=== PATIENT | male | born 1950 | race Caucasian/White ===

== ENCOUNTER → 2016-09-07 | Outpatient (CLI) | payer MEDICARE, OTHER | LOC: RAD 12:20 | PROVIDERS: ATTEND Internal Medicine Medical Oncology | DX: C34.92 Malignant neoplasm of unspecified part of left bronchus or lung (principal) | CPT/HCPCS: 78815; A9552 ==

== ENCOUNTER → 2016-11-01 | Outpatient (CLI) | payer MEDICARE | LOC: OD 09:32 | PROVIDERS: ATTEND Internal Medicine Medical Oncology | DX: C34.92 Malignant neoplasm of unspecified part of left bronchus or lung (principal) | CPT/HCPCS: 71020 ==

== ENCOUNTER → 2016-11-13 | Outpatient (CLI) | payer MEDICARE, OTHER | LOC: OD 15:08 | PROVIDERS: ATTEND Internal Medicine | DX: N40.0 Benign prostatic hyperplasia without lower urinary tract symptoms (principal) | CPT/HCPCS: 36415; 84153 ==

== ENCOUNTER → 2017-01-21 | Outpatient (CLI) | payer MEDICARE, OTHER ==
--- NOTE | 2017-01-21 10:55 | RADIOLOGY REPORT (SQ) ---
EXAM DESCRIPTION: CT CHEST WITH COMPLETED DATE/TIME: 01/21/2017 10:00 am REASON FOR STUDY: LUNG CA (C34.92) C34.92 MALIGNANT NEOPLASM OF UNSP PART OF LEFT BRONCHUS OR L COMPARISON: 01/26/2016 TECHNIQUE: CT scan of the chest performed using helical scanning technique with dynamic intravenous contrast injection. Images reviewed with lung, soft tissue and bone windows. Reconstructed coronal and sagittal MPR images reviewed. All images stored on PACS. All CT scanners at this facility use dose modulation, iterative reconstruction, and/or weight based d osing when appropriate to reduce radiation dose to as low as reasonably achievable (ALARA). [facility]: Dose Right [facility]: CareDose [facility]: Dose Right [facility]: Teradose 4D [facility]: Munch On Me CONTRAST TYPE AND DOSE: 80mL Isovue 370- low osmolar. RENAL FUNCTION: Creatinine 0.8 RADIATION DOSE: 5.10 mGy. LIMITATIONS: None. FINDINGS: LUNGS AND PLEURA: There is a 9 x 18 mm somewhat spiculated density in the left upper lobe. This is relatively stable or perhaps slightly less prominent than on the earlier study. Centrilobu lar emphysematous changes are present. There is pleural/ parenchymal scarring along the fissure on t he left side. This is best seen on image 97 where there is somewhat of a nodular appearance. This r epresents a slight change. HILAR AND MEDIASTINAL STRUCTURES: No identified masses or abnormal nodes. HEART AND VASCULAR STRUCTURES: No aneurysm or dissection. No central pulmonary emboli. No pericardi al effusion. HARDWARE: None in the chest. UPPER ABDOMEN: No significant findings. Limited exam. THYROID AND OTHER SOFT TISSUES: No masses. No adenopathy. BONES: No significant finding. OTHER: No other significant finding. IMPRESSION: 1. There is a somewhat spiculated density in the left upper lobe that is stable or perh aps slightly less prominent. 2. There is pleural/parenchymal scarring in the left lower lung field along the fissure that appears slightly more prominent. 3. There is centrilobular emphysema. TECHNICAL DOCUMENTATION: JOB ID: [id number] Quality ID # [id number]: Final reports with documentation of one or more dose reduction techniques (e.g., Au tomated exposure control, adjustment of the mA and/or kV according to patient size, use of iterative reconstruction technique) 2010 [employer]- All Rights Reserved
== END ==
LOC: RAD 09:19
PROVIDERS: ATTEND Internal Medicine Medical Oncology
DX: C34.92 Malignant neoplasm of unspecified part of left bronchus or lung (principal)
CPT/HCPCS: 71260; 82565

== ENCOUNTER → 2017-05-05 | Outpatient (CLI) | payer MEDICARE, OTHER ==
--- NOTE | 2017-05-06 08:16 | RADIOLOGY REPORT (SQ) ---
EXAM DESCRIPTION: PET CT SKULL/THIGH COMPLETED DATE/TIME: 05/05/2017 9:24 pm REASON FOR STUDY: LUNG CANCER C34.92 MALIGNANT NEOPLASM OF UNSP PART OF LEFT BRONCHUS OR L COMPARISON: 09/07/2016 and 04/29/2016. RADIONUCLIDE AND DOSE: 12.0 mCi F18 FDG The route of agent administration: Intravenous FASTING BLOOD SUGAR: 81 mg/dl CONTRAST TYPE AND DOSE: No CT contrast given. TECHNIQUE: Blood glucose level was verified. Above dose of FDG was injected intravenously. 2-D seg mented attenuation correction images were obtained from the base of the skull to the midthighs. Nonc ontrast CT images were obtained for attenuation correction and fusion with emission images. CT image s were performed without oral or intravenous contrast and are not sensitive for parenchymal lesions. A series of overlapping emission PET images were obtained. Images reviewed and manipulated at [facility] work station by the radiologist. Images stored on PACS. LIMITATIONS: None. FINDINGS: HEAD AND NECK: No areas of abnormal metabolic activity in the soft tissues of the head and neck. CHEST: Spiculated mass in the left apex currently measures 8 mm. Prior measurement 8 x 13 mm. Non m etabolic on PET imaging. Emphysematous changes. No other pulmonary lesions. ABDOMEN AND PELVIS: No areas of abnormal metabolic activity in the abdomen or pelvis. Expected physi ologic activity is present in the genitourinary system and bowel. PROXIMAL LOWER EXTREMITIES: No areas of abnormal metabolic activity in the soft tissues of the lower extremities. BONES: No abnormal metabolic activity in the visualized skeleton. ADDITIONAL CT FINDINGS: Mucous membrane thickening in the left maxillary sinus. No additional signif icant findings on the noncontrast CT images. OTHER: No other significant findings. IMPRESSION: SPICULATED MASS IN THE LEFT LUNG APEX IS SMALLER AND REMAINS NON METABOLIC. NO NEW PULM ONARY LESIONS. NO EVIDENCE OF METASTATIC DISEASE. TECHNICAL DOCUMENTATION: JOB ID: [id number]- All Rights Reserved
== END ==
LOC: RAD 17:17
PROVIDERS: ATTEND Internal Medicine Medical Oncology
DX: C34.92 Malignant neoplasm of unspecified part of left bronchus or lung (principal)
CPT/HCPCS: 78815; A9552

== ENCOUNTER → 2017-07-10 | Outpatient (CLI) | payer MEDICARE, OTHER, MEDICAID ==
[2017-07-10 08:19] LABS: ABSOLUTE BASOPHILS # (AUTO) 0.1 10^3/uL (0.0-0.2); ABSOLUTE EOSINOPHILS # (AUTO) 0.1 10^3/uL (0.0-0.6); ABSOLUTE LYMPHOCYTES (AUTO) 1.6 10^3/uL (0.5-4.7); ABSOLUTE MONOCYTES (AUTO) 0.4 10^3/uL (0.1-1.4); ABSOLUTE NEUT (AUTO) 2.6 10^3/uL (1.7-8.2); BASOPHILS % (AUTO) 1.1 % (0-2); EOSINOPHILS % (AUTO) 2.6 % (0-6); HEMATOCRIT 42.9 % (37.9-51.0); HEMOGLOBIN 14.8 g/dL (13.5-17.0); HGB HCT DIFFERENCE 1.5; LYMPHOCYTES % (AUTO) 33.8 % (13-45); MEAN CORPUSCULAR HEMOGLOBIN 32.8 pg (27.0-33.4); MEAN CORPUSCULAR HGB CONC 34.4 g/dL (32.0-36.0); MEAN CORPUSCULAR VOLUME 95 fl (80-97); MONOCYTES % (AUTO) 7.5 % (3-13); RED CELL DISTRIBUTION WIDTH 15.3 % (11.5-14.0); WHITE BLOOD COUNT 4.8 10^3/uL (4.0-10.5)
[2017-07-10 08:40] LABS: ALANINE AMINOTRANSFERASE 31 U/L (21-72); ALBUMIN 4.1 g/dL (3.5-5.0); ALKALINE PHOSPHATASE 95 U/L (38-126); ANION GAP 12 (5-19); ASPARTATE AMINO TRANSFERASE 19 U/L (17-59); BILIRUBIN,DIRECT 0.4 mg/dL (0.0-0.4); BILIRUBIN,TOTAL 0.6 mg/dL (0.2-1.3); BLOOD UREA NITROGEN 11 mg/dL (7-20); CALCIUM 9.6 mg/dL (8.4-10.2); CARBON DIOXIDE 30 mmol/L (22-30); CHLORIDE 103 mmol/L (98-107); CHOLESTEROL 168.66 mg/dL (0-200); CREATININE RESULT 0.83 mg/dL (0.52-1.25); Direct HDL 45 mg/dL (>40); GLUCOSE 92 mg/dL (75-110); POTASSIUM 4.8 mmol/L (3.6-5.0); SODIUM 144.5 mmol/L (137-145); TOTAL PROTEIN 6.5 g/dL (6.3-8.2); TRIGLYCERIDES 119 mg/dL (<150)
[2017-07-10 08:51] LABS: DIRECT LDL 94 mg/dL (<100)
[2017-07-10 09:10] LABS: THYROID STIMULATING HORMONE 1.15 uIU/mL (0.47-4.68)
== END ==
LOC: OD 07:04
PROVIDERS: ATTEND Internal Medicine
DX: E03.9 Hypothyroidism, unspecified (principal); Z12.5 Encounter for screening for malignant neoplasm of prostate; R91.1 Solitary pulmonary nodule; N42.89 Other specified disorders of prostate; E78.00 Pure hypercholesterolemia, unspecified; Z79.899 Other long term (current) drug therapy
CPT/HCPCS: 36415; 84439; 84443; 85025; 80053; 80061; G0103

== ENCOUNTER → 2018-01-06 | Outpatient (CLI) | payer MEDICARE, MEDICAID ==
--- NOTE | 2018-01-06 09:40 | RADIOLOGY REPORT (SQ) ---
EXAM DESCRIPTION: CT CHEST WITH COMPLETED DATE/TIME: 01/06/2018 8:07 am REASON FOR STUDY: LUNG CA (C34.92) C34.92 MALIGNANT NEOPLASM OF UNSP PART OF LEFT BRONCHUS OR L COMPARISON: PET-CT 05/05/2017, 09/07/2016 CT chest 01/21/2017, 01/26/2016 TECHNIQUE: CT scan of the chest performed using helical scanning technique with dynamic intravenous contrast injection. Images reviewed with lung, soft tissue and bone windows. Reconstructed coronal and sagittal MPR images reviewed. All images stored on PACS. All CT scanners at this facility use dose modulation, iterative reconstruction, and/or weight based d osing when appropriate to reduce radiation dose to as low as reasonably achievable (ALARA). [facility]: Dose Right [facility]: CareDose [facility]: Dose Right [facility]: Teradose 4D [facility]: [employer] CONTRAST TYPE AND DOSE: contrast/concentration: Isovue 370.00 mg/ml; Total Contrast Delivered: 80.0 ml; Total Saline Delivered: 55.0 ml RENAL FUNCTION: Creatinine 0.9 RADIATION DOSE: CT Rad equipment meets quality standard of care and radiation dose reduction techniq ues were employed. CTDIvol: 5.9 mGy. DLP: 249 mGy-cm. . LIMITATIONS: None. FINDINGS: LUNGS AND PLEURA: 6 mm thick left apical scarring essentially unchanged from 05/05/2017. Advanced obstructive lung disease is present with enlarged centrilobular airspaces. No acute infiltrates. No pneumothorax. No pleural effusion. HILAR AND MEDIASTINAL STRUCTURES: No identified masses or abnormal nodes. HEART AND VASCULAR STRUCTURES: No aneurysm or dissection. No central pulmonary emboli. No pericardi al effusion. HARDWARE: None in the chest. UPPER ABDOMEN: No significant findings. Limited exam. THYROID AND OTHER SOFT TISSUES: Thyroid unremarkable. Benign sebaceous cysts in the scan over the do rsal mid thoracic region BONES: No significant finding. OTHER: No other significant finding. IMPRESSION: 6 mm thick left apical scarring similar compared to 05/05/2017. Advanced obstructive lung disease No hilar or mediastinal adenopathy. No CT evidence of bony metastatic disease given history of lung cancer TECHNICAL DOCUMENTATION: JOB ID: [id number] Quality ID # [id number]: Final reports with documentation of one or more dose reduction techniques (e.g., Au tomated exposure control, adjustment of the mA and/or kV according to patient size, use of iterative reconstruction technique) 2010 [email or web address]- All Rights Reserved Reading location - IP/workstation name: [email or web address]
== END ==
LOC: RAD 07:28
PROVIDERS: ATTEND Internal Medicine Medical Oncology
DX: C34.92 Malignant neoplasm of unspecified part of left bronchus or lung (principal)
CPT/HCPCS: 71260

== ENCOUNTER → 2018-01-28 | Outpatient (CLI) | payer MEDICARE, MEDICAID ==
[2018-01-28 08:19] LABS: ALANINE AMINOTRANSFERASE 22 U/L (21-72); ALBUMIN 4.2 g/dL (3.5-5.0); ALKALINE PHOSPHATASE 89 U/L (38-126); ANION GAP 12 (5-19); ASPARTATE AMINO TRANSFERASE 19 U/L (17-59); BILIRUBIN,DIRECT 0.3 mg/dL (0.0-0.4); BILIRUBIN,TOTAL 0.8 mg/dL (0.2-1.3); BLOOD UREA NITROGEN 13 mg/dL (7-20); CALCIUM 10.1 mg/dL (8.4-10.2); CARBON DIOXIDE 27 mmol/L (22-30); CHLORIDE 104 mmol/L (98-107); CHOLESTEROL 167.96 mg/dL (0-200); GLUCOSE 88 mg/dL (75-110); SODIUM 143.4 mmol/L (137-145); TOTAL PROTEIN 6.8 g/dL (6.3-8.2); TRIGLYCERIDES 113 mg/dL (<150)
[2018-01-28 08:33] LABS: DIRECT LDL 101 mg/dL (<100)
[2018-01-28 08:46] LABS: FREE T4 (FREE THYROXINE) 1.57 ng/dL (0.78-2.19)
[2018-01-28 08:59] LABS: THYROID STIMULATING HORMONE 0.58 uIU/mL (0.47-4.68)
== END ==
LOC: OD 07:18
PROVIDERS: ATTEND Internal Medicine
DX: E03.9 Hypothyroidism, unspecified (principal); Z79.899 Other long term (current) drug therapy
CPT/HCPCS: 36415; 80053; 80061; 84439; 84443

== ENCOUNTER 2018-05-16 18:30 | Emergency (ER) | payer MEDICARE, MEDICAID ==
--- NOTE | 2018-05-16 19:14 | ER Document Report ---
ED General - General Chief Complaint: Abdominal Pain Stated Complaint: left upper abdominal pain Time Seen by Provider: 05/16/18 19:13 Notes: Patient is a 68-year-old male with history of lung cancer and COPD that presents to the emergency department for chief complaint of upper quadrant abdominal pain and confusion. Patient states that he has been having left upper quadrant abdominal pain, he has had decreased appetite as well, and a 12 pound weight loss, the patient does have lung cancer, that he that was in remission, his last CT scan was 5 months ago, and appeared stable according to the patient's . He is also been slightly more confused according to the patient's and more forgetful than his usual, which she does have a baseline of being confused. He is supposed to follow-up with his doctor of naprapathy in about 2 weeks. He has been having all of these symptoms for about 2 or 3 weeks, and overall is is not been feeling as strong as usual. He denies noting any fevers, chills, night sweats, chest pain, increased shortness of breath, nausea or vomiting. He has not had a cough without production over this time as well. Past Medical History: COPD, lung cancer diagnosed in 2016, treated with chemo and radiation Past Surgical History: Denies major surgical history Social History: Admits to still smoking cigarettes, denies alcohol or drug use. Family History: Reviewed and noncontributory for presenting illness Allergies: Reviewed, see documented allergy list. REVIEW OF SYSTEMS: Unless otherwise stated in this report the patient's positive and negative responses for review of systems for constitutional, eyes, ENT, cardiovascular, respiratory, gastrointestinal, neurological, genitourinary, musculoskeletal, and integumentary systems and related systems to the presenting problem are either as stated in the HPI or were not pertinent or were negative for the symptoms and/or complaints related to the presenting medical problem. PHYSICAL EXAMINATION: Vital signs reviewed, nursing noted reviewed. GENERAL: Malnourished appearing elderly male, no acute distress HEAD: Atraumatic, normocephalic. EYES: Eyes appear normal, extraocular movements intact, sclera anicteric, conjunctiva are normal. ENT: nares patent, oropharynx clear without exudates. Moist mucous membranes. NECK: Normal range of motion, supple without lymphadenopathy LUNGS: Wheezing and rhonchi throughout all lung warren but no respiratory distress HEART: Heart rate borderline tachycardic, regular rhythm. ABDOMEN: Left upper quadrant tenderness to palpation, soft, normoactive bowel sounds. No rebound, guarding, or rigidity. No masses appreciated. EXTREMITIES: Nontender, good range of motion, no pitting or edema. NEUROLOGICAL: No focal neurological deficits. Moves all extremities spontaneously Motor and sensory grossly intact on exam. Patient was alert and oriented on my exam PSYCH: Normal mood, normal affect. SKIN: Warm, Dry, normal turgor, no rashes or lesions noted on exposed skin TRAVEL OUTSIDE OF THE [place] IN LAST 30 DAYS: No - Related Data Allergies/Adverse Reactions: atorvastatin [From Lipitor] Allergy (Verified 03/30/16 18:35) gabapentin Allergy (Verified 03/30/16 18:35) pravastatin [From Pravachol] Allergy (Verified 03/30/16 18:35) pregabalin [From Lyrica] Allergy (Verified 03/30/16 18:35) Past Medical History - Social History Smoking Status: Current Every Day Smoker Family History: Reviewed & Not Pertinent - Past Medical History Cardiac Medical History: Denies: Hx Coronary Artery Disease, Hx Heart Attack, Hx Hypertension Pulmonary Medical History: Reports: Hx COPD Denies: Hx Asthma, Hx Bronchitis, Hx Pneumonia Neurological Medical History: Denies: Hx Cerebrovascular Accident, Hx Seizures Musculoskeletal Medical History: Denies Hx Arthritis - Immunizations Hx Diphtheria, Pertussis, Tetanus Vaccination: No Physical Exam - Vital signs Vitals: Temp Pulse Resp BP Pulse Ox 98.3 F 107 H 28 H 113/65 100 05/16/18 18:48 05/16/18 18:48 05/16/18 18:48 05/16/18 18:48 05/16/18 18:48 Course - Re-evaluation Re-evalutation: Patient seen and examined vital signs reviewed. Laboratory data and imaging were ordered as appropriate for the patient's presenting symptoms and complaint, with consideration of any critical or life threatening conditions that may be associated with their obtained history and exam as noted above. Patient was worked up extensively for his complaints, I did pursue a CT angiogram of the chest given the patient's history of cancer, he does have this left upper abdominal pain, and cough, I was also concerned that the patient's prior lung carcinoma may have returned. Patient was treated with DuoNeb breathing treatment Results were reviewed when available and demonstrated spiculated lung mass with surrounding inflammation, on the left, seem to be worse from prior imaging in December, blood work for the patient's confusion was unremarkable, negative ammonia, normal lactic acid, VBG was unremarkable, no evidence of CO2 retention, UA was also unremarkable. The patient was re-evaluated and was improved, and wishing to be discharged, I will treat the patient for pneumonia, as the patient does have possible infectious process on CT of the chest, will place the patient on doxycycline 100 mg twice daily, and advised him to follow-up with his doctor of naprapathy which she is agreeable Evaluation was most consistent with community-acquired pneumonia, worsening lung mass, transient encephalopathy, patient was alert and oriented at the time of discharge, described and discussed with the patient and the patient's that his nutritional status needs to be improved, by increasing protein supplementations, and is likely contributing to the patient's overall weakness, and mentation on a daily basis, encouraged to follow-up with her primary care physician to further discuss. Results were discussed with the patient at this point, after careful consideration I feel that that patient can be discharged from the emergency department, the patient was educated treatments and reasons to return to the emergency department based on their presumed diagnosis as noted above, they were advised to followup with a primary care physician in 2-3 days. Patient was agreeable to plan of care. *Note is created using voice recognition software and may contain spelling, syntax or grammatical errors. Laboratory 05/16/18 05/16/18 05/16/18 19:09 19:09 19:09 WBC 9.8 RBC 4.37 Hgb 13.8 Hct 40.6 MCV 93 MCH 31.6 MCHC 34.1 RDW 13.8 Plt Count 267 Seg Neutrophils % 81.9 H Lymphocytes % 9.4 L Monocytes % 8.2 Eosinophils % 0.1 Basophils % 0.4 Absolute Neutrophils 8.1 Absolute Lymphocytes 0.9 Absolute Monocytes 0.8 Absolute Eosinophils 0.0 Absolute Basophils 0.0 VBG pH VBG pCO2 VBG HCO3 VBG Base Excess Sodium 132.9 L Potassium 3.8 Chloride 96 L Carbon Dioxide 26 Anion Gap 11 BUN 15 Creatinine 0.82 Est GFR ( Amer) > 60 Est GFR (Non-Af Amer) > 60 Glucose 118 H Lactic Acid Calcium 9.1 Total Bilirubin 1.9 H Direct Bilirubin 1.0 H Neonat Total Bilirubin Not Reportable Neonat Direct Bilirubin Not Reportable Neonat Indirect Bili Not Reportable AST 26 ALT 29 Alkaline Phosphatase 130 H Ammonia Troponin I < 0.012 NT-Pro-B Natriuret Pep 234 Total Protein 6.4 Albumin 3.4 L Urine Color Urine Appearance Urine pH Ur Specific [place] Urine Protein Urine Glucose (UA) Urine Ketones Urine Blood Urine Nitrite Urine Bilirubin Urine Urobilinogen Ur Leukocyte Esterase Urine WBC (Auto) Urine RBC (Auto) Urine Bacteria (Auto) Squamous Epi Cells Auto Urine Mucus (Auto) Urine Ascorbic Acid 05/16/18 05/16/18 05/16/18 19:09 19:09 19:09 WBC RBC Hgb Hct MCV MCH MCHC RDW Plt Count Seg Neutrophils % Lymphocytes % Monocytes % Eosinophils % Basophils % Absolute Neutrophils Absolute Lymphocytes Absolute Monocytes Absolute Eosinophils Absolute Basophils VBG pH 7.43 H VBG pCO2 40.0 VBG HCO3 25.7 VBG Base Excess 1.3 Sodium Potassium Chloride Carbon Dioxide Anion Gap BUN Creatinine Est GFR ( Amer) Est GFR (Non-Af Amer) Glucose Lactic Acid 1.3 Calcium Total Bilirubin Direct Bilirubin Neonat Total Bilirubin Neonat Direct Bilirubin Neonat Indirect Bili AST ALT Alkaline Phosphatase Ammonia < 8.7 L Troponin I NT-Pro-B Natriuret Pep Total Protein Albumin Urine Color Urine Appearance Urine pH Ur Specific [place] Urine Protein Urine Glucose (UA) Urine Ketones Urine Blood Urine Nitrite Urine Bilirubin Urine Urobilinogen Ur Leukocyte Esterase Urine WBC (Auto) Urine RBC (Auto) Urine Bacteria (Auto) Squamous Epi Cells Auto Urine Mucus (Auto) Urine Ascorbic Acid 05/16/18 20:28 WBC RBC Hgb Hct MCV MCH MCHC RDW Plt Count Seg Neutrophils % Lymphocytes % Monocytes % Eosinophils % Basophils % Absolute Neutrophils Absolute Lymphocytes Absolute Monocytes Absolute Eosinophils Absolute Basophils VBG pH VBG pCO2 VBG HCO3 VBG Base Excess Sodium Potassium Chloride Carbon Dioxide Anion Gap BUN Creatinine Est GFR ( Amer) Est GFR (Non-Af Amer) Glucose Lactic Acid Calcium Total Bilirubin Direct Bilirubin Neonat Total Bilirubin Neonat Direct Bilirubin Neonat Indirect Bili AST ALT Alkaline Phosphatase Ammonia Troponin I NT-Pro-B Natriuret Pep Total Protein Albumin Urine Color YELLOW Urine Appearance SLIGHTLY-CLOUDY Urine pH 5.0 Ur Specific [place] 1.029 Urine Protein 30 H Urine Glucose (UA) NEGATIVE Urine Ketones NEGATIVE Urine Blood SMALL H Urine Nitrite NEGATIVE Urine Bilirubin SMALL H Urine Urobilinogen 4.0 H Ur Leukocyte Esterase NEGATIVE Urine WBC (Auto) 4 Urine RBC (Auto) 2 Urine Bacteria (Auto) TRACE Squamous Epi Cells Auto <1 Urine Mucus (Auto) MANY Urine Ascorbic Acid NEGATIVE Chest X-Ray 05/16/18 19:13 IMPRESSION: Left upper lobe architectural distortion and opacification which appears increased relative to CT imaging dated 01/06/2018. These findings are nonspecific, and may represent treatment changes; lymphangitic spread may have a similar appearance. Chest/Abdomen CTA 05/16/18 19:27 IMPRESSION: 1. Normal CTA of the chest. No pulmonary emboli. 2. Left upper lobe spiculated mass increased in size relative to 01/06/2018 CT imaging. Interval development of increased interstitial markings and architectural distortion extending to the lingula is concerning for lymphangitic spread. Superimposed infectious process is not excluded. Background of severe centrilobular emphysematous changes. - Vital Signs Vital signs: Temp Pulse Resp BP Pulse Ox 98.5 F 95 20 107/65 95 05/16/18 21:43 05/16/18 21:43 05/16/18 21:43 05/16/18 21:43 05/16/18 21:43 - Laboratory Result Diagrams: 05/16/18 19:09 05/16/18 19:09 Laboratory results interpreted by me: 05/16/18 05/16/18 05/16/18 19:09 19:09 19:09 Seg Neutrophils % 81.9 H Lymphocytes % 9.4 L VBG pH Sodium 132.9 L Chloride 96 L Glucose 118 H Total Bilirubin 1.9 H Direct Bilirubin 1.0 H Alkaline Phosphatase 130 H Ammonia < 8.7 L Albumin 3.4 L Urine Protein Urine Blood Urine Bilirubin Urine Urobilinogen 05/16/18 05/16/18 19:09 20:28 Seg Neutrophils % Lymphocytes % VBG pH 7.43 H Sodium Chloride Glucose Total Bilirubin Direct Bilirubin Alkaline Phosphatase Ammonia Albumin Urine Protein 30 H Urine Blood SMALL H Urine Bilirubin SMALL H Urine Urobilinogen 4.0 H - EKG Interpretation by Me Additional EKG results interpreted by me: EKG demonstrates sinus tachycardia with a ventricular rate of 100 bpm, left axis deviation, normal intervals, there is slight T wave inversion in lead aVL, no ST changes, this is compared with prior EKG from 03/30/2016, where T wave inversion was present in aVL at that time. Discharge - Discharge Clinical Impression: Hyponatremia Pneumonia Qualifiers: Pneumonia type: due to unspecified organism Laterality: left Lung location: upper lobe of lung Qualified Code(s): J18.1 - Lobar pneumonia, unspecified organism Altered mental status, unspecified Qualifiers: Altered mental status type: unspecified Qualified Code(s): R41.82 - Altered mental status, unspecified Condition: Stable Disposition: HOME, SELF-CARE Instructions: Pneumonia (OM) Additional Instructions: Please follow-up with your primary care physician as well as the doctor of naprapathy, to follow-up on your CAT scan findings, take the antibiotics as directed. Prescriptions: Doxycycline Hyclate 100 mg PO BID #20 capsule Referrals: PAN KOLB PA-C [ALLIED HEALTH PROFESSIONAL] - Follow up as needed
[2018-05-16 19:25] LABS: ABSOLUTE LYMPHOCYTES (AUTO) 0.9 10^3/uL (0.5-4.7); ABSOLUTE MONOCYTES (AUTO) 0.8 10^3/uL (0.1-1.4); ABSOLUTE NEUT (AUTO) 8.1 10^3/uL (1.7-8.2); BASOPHILS % (AUTO) 0.4 % (0-2); EOSINOPHILS % (AUTO) 0.1 % (0-6); HEMATOCRIT 40.6 % (37.9-51.0); HEMOGLOBIN 13.8 g/dL (13.5-17.0); LYMPHOCYTES % (AUTO) 9.4 % (13-45); MEAN CORPUSCULAR HEMOGLOBIN 31.6 pg (27.0-33.4); MEAN CORPUSCULAR HGB CONC 34.1 g/dL (32.0-36.0); MEAN CORPUSCULAR VOLUME 93 fl (80-97); MONOCYTES % (AUTO) 8.2 % (3-13); PLATELET COUNT 267 10^3/uL (150-450); RED BLOOD COUNT 4.37 10^6/uL (4.35-5.55); RED CELL DISTRIBUTION WIDTH 13.8 % (11.5-14.0); SEGMENTED NEUTROPHILS % (AUTO) 81.9 % (42-78); TOTAL CELLS COUNTED % (AUTO) 100 %; WHITE BLOOD COUNT 9.8 10^3/uL (4.0-10.5)
[2018-05-16 19:27] LABS: VENOUS BLOOD BASE EXCESS 1.3 mmol/L; VENOUS BLOOD HCO3 25.7 mmol/L (20-32); VENOUS BLOOD PH 7.43 (7.30-7.42)
[2018-05-16] MEDS ORDERED: IPRATROPIUM/ALBUTEROL 0.5-2.5 MG/3 ML AMPUL NEB ONE (19:29)
[2018-05-16 19:43] LABS: ALANINE AMINOTRANSFERASE 29 U/L (21-72); ALBUMIN 3.4 g/dL (3.5-5.0); ALKALINE PHOSPHATASE 130 U/L (38-126); ANION GAP 11 (5-19); ASPARTATE AMINO TRANSFERASE 26 U/L (17-59); BILIRUBIN,TOTAL 1.9 mg/dL (0.2-1.3); BLOOD UREA NITROGEN 15 mg/dL (7-20); CALCIUM 9.1 mg/dL (8.4-10.2); CARBON DIOXIDE 26 mmol/L (22-30); CHLORIDE 96 mmol/L (98-107); GLUCOSE 118 mg/dL (75-110); POTASSIUM 3.8 mmol/L (3.6-5.0); SODIUM 132.9 mmol/L (137-145); TOTAL PROTEIN 6.4 g/dL (6.3-8.2)
[2018-05-16 19:55] LABS: NT PRO BNP 234 pg/mL (5-900)
[2018-05-16 19:57] LABS: TROPONIN I < 0.012 ng/mL
--- NOTE | 2018-05-16 20:13 | RADIOLOGY REPORT (SQ) ---
EXAM DESCRIPTION: CHEST SINGLE VIEW COMPLETED DATE/TIME: 05/16/2018 7:58 pm REASON FOR STUDY: chest pain COMPARISON: 1. Chest CT 01/06/2018 2. Chest radiographs 11/01/2016 EXAM PARAMETERS: NUMBER OF VIEWS: One view. TECHNIQUE: Single frontal radiographic view of the chest acquired. RADIATION DOSE: NA LIMITATIONS: None. FINDINGS: LUNGS AND PLEURA: Left upper lobe architectural distortion and opacification in this patie nt with previously diagnosed [id number] lung cancer. This extends along the lateral pulmonary pa renchyma which may be related to treatment versus lymphangitic spread. The lungs are otherwise clear . No pneumothorax. No large pleural effusion. MEDIASTINUM AND HILAR STRUCTURES: No masses. Contour normal. HEART AND VASCULAR STRUCTURES: Heart normal in size. Normal vasculature. BONES: No acute findings. HARDWARE: None in the chest. OTHER: No other significant finding. IMPRESSION: Left upper lobe architectural distortion and opacification which appears increased relat laya to CT imaging dated 01/06/2018. These findings are nonspecific, and may represent treatment dos santos es; lymphangitic spread may have a similar appearance. TECHNICAL DOCUMENTATION: JOB ID: [id number] [employer]- All Rights Reserved Reading location - IP/workstation name: [email or web address]
[2018-05-16 20:47] LABS: APPEARANCE,URINE SLIGHTLY-CLOUDY; BILIRUBIN,URINE SMALL (NEGATIVE); GLUCOSE, URINE NEGATIVE (NEGATIVE); KETONES,URINE NEGATIVE (NEGATIVE); LEUKOCYTE ESTERASE,URINE NEGATIVE (NEGATIVE); NITRITE,URINE NEGATIVE (NEGATIVE); PROTEIN,URINE 30 mg/dL (NEGATIVE); URINE SPECIFIC GRAVITY 1.029
--- NOTE | 2018-05-16 20:54 | RADIOLOGY REPORT (SQ) ---
EXAM DESCRIPTION: CTA CHEST COMPLETED DATE/TIME: 05/16/2018 8:34 pm REASON FOR STUDY: left pleuritic chest pain, hx lung ca. COMPARISON: Chest radiograph 05/16/[address] 01/06/2018 TECHNIQUE: CT scan of the chest performed using helical scanning technique with dynamic intravenous contrast injection. Images reviewed with lung, soft tissue and bone windows. Reconstructed coronal and sagittal MPR images reviewed. Additional 3 dimensional post-processing performed to develop Maximal Intensity Projection images (MD P). All images stored on PACS. All CT scanners at this facility use dose modulation, iterative reconstruction, and/or weight based d osing when appropriate to reduce radiation dose to as low as reasonably achievable (ALARA). [facility]: Dose Right [facility]: CareDose [facility]: Dose Right [facility]: Teradose 4D [facility]: [employer] CONTRAST TYPE AND DOSE: contrast/concentration: Isovue 350.00 mg/ml; Total Contrast Delivered: 60.0 ml; Total Saline Delivered: 70.0 ml Contrast bolus optimized for the pulmonary arteries. Not diagnostic for the aorta. RENAL FUNCTION: BUN 15; creatinine 0.82 RADIATION DOSE: CT Rad equipment meets quality standard of care and radiation dose reduction techniq ues were employed. CTDIvol: 3.3 - 14.3 mGy. DLP: 578 mGy-cm. . LIMITATIONS: None. FINDINGS: LUNGS AND PLEURA: Re- demonstration of a spiculated mass involving the left upper lobe. A dditional finding of increased interstitial markings, architectural distortion extending to the lingu la. This is seen on a background of severe centrilobular emphysematous changes. No pleural effusion . No pneumothorax. AORTA AND GREAT VESSELS: No aneurysm. Contrast bolus not optimized for the aorta. HEART: Small pericardial effusion. Moderate to marked coronary artery calcifications. PULMONARY ARTERIES: No emboli visualized in the main pulmonary arteries or the segmental branches. HILAR AND MEDIASTINAL STRUCTURES: Scattered mediastinal lymph nodes which are not pathologic by size criteria. HARDWARE: None in the chest. UPPER ABDOMEN: No significant findings. Limited exam. THYROID AND OTHER SOFT TISSUES: No masses. No adenopathy. BONES: No acute or significant finding. 3D MIPS: Confirm above findings. OTHER: No other significant finding. IMPRESSION: 1. Normal CTA of the chest. No pulmonary emboli. 2. Left upper lobe spiculated mass increased in size relative to 01/06/2018 CT imaging. Interval dev elopment of increased interstitial markings and architectural distortion extending to the lingula is concerning for lymphangitic spread. Superimposed infectious process is not excluded. Background of severe centrilobular emphysematous changes. COMMENT: Quality ID # [id number]: Final reports with documentation of one or more dose reduction techniques (e.g., Automated exposure control, adjustment of the mA and/or kV according to patient size, use of iterative reconstruction technique) TECHNICAL DOCUMENTATION: JOB ID: [id number] [employer]- All Rights Reserved Reading location - IP/workstation name: [email or web address]
--- NOTE | 2018-05-16 20:56 | EKG REPORT ---
SEVERITY:- ABNORMAL ECG - SINUS TACHYCARDIA LEFT ANTERIOR FASCICULAR BLOCK : Confirmed by: Zuly Goncalves MD 16-May-2018 20:55:24
[2018-05-16 21:00] LABS: COLOR,URINE YELLOW
[2018-05-16 21:48] VITALS: BP 107/65
== END 2018-05-16 21:56 | disposition home or self-care (01) ==
LOC: ER 18:30
DX: E87.1 Hypo-osmolality and hyponatremia (principal); J18.1 Lobar pneumonia, unspecified organism; R41.82 Altered mental status, unspecified; R10.12 Left upper quadrant pain; J44.9 Chronic obstructive pulmonary disease, unspecified; F17.200 Nicotine dependence, unspecified, uncomplicated; Z85.118 Personal history of other malignant neoplasm of bronchus and lung
CPT/HCPCS: 93005; 94640; 99285; 36415; 87040; 82140; 85025; 87077; 80053; 81001; 84484; 82803; 83605; 83880; 71045; 71275; 93010; A9270; J7620

== ENCOUNTER 2018-05-19 13:48 | Inpatient (IN) | payer MEDICARE, MEDICAID ==
--- NOTE | 2018-05-19 14:39 | ER Document Report ---
ED Medical Screen (RME) - General Chief Complaint: Respiratory Distress Stated Complaint: GENERAL WEAKNESS Time Seen by Provider: 05/19/18 14:25 Mode of Arrival: Medic Information source: Patient Notes: This is a 68-year-old man with a history of COPD, lung cancer (diagnosed December of this year by biopsy, status post chemotherapy and radiation therapy) who was recently in the emergency room for increasing shortness of breath and started on an oral antibiotic (3 days ago) who was brought in by ambulance from the oncologist office for worsening shortness of breath, confusion decreased p.o. intake and not tolerating oral antibiotics. Patient's oxygen saturation was noted to be 90% on room air. He is on no supplemental oxygen at home. TRAVEL OUTSIDE OF THE [place] IN LAST 30 DAYS: No - Related Data Allergies/Adverse Reactions: atorvastatin [From Lipitor] Allergy (Verified 03/30/16 18:35) gabapentin Allergy (Verified 03/30/16 18:35) pravastatin [From Pravachol] Allergy (Verified 03/30/16 18:35) pregabalin [From Lyrica] Allergy (Verified 03/30/16 18:35) Past Medical History - Social History Frequency of alcohol use: None - Past Medical History Cardiac Medical History: Denies: Hx Coronary Artery Disease, Hx Heart Attack, Hx Hypertension Pulmonary Medical History: Reports: Hx COPD Denies: Hx Asthma, Hx Bronchitis, Hx Pneumonia Neurological Medical History: Denies: Hx Cerebrovascular Accident, Hx Seizures Renal/ Medical History: Denies: Hx Peritoneal Dialysis Musculoskeltal Medical History: Denies Hx Arthritis - Immunizations Hx Diphtheria, Pertussis, Tetanus Vaccination: No Physical Exam - Vital signs Vitals: Resp 20 05/19/18 13:55 Notes: Physical exam: GENERAL: Cachectic, ill-appearing man who does appear short of breath. He is tachycardic with a heart rate of 112. HEAD: Atraumatic, normocephalic. EYES: Pupils equal round and reactive to light, extraocular movements intact, sclera anicteric, conjunctiva are normal. ENT: TMs normal, nares patent, oropharynx clear without exudates. Moist mucous membranes. NECK: Normal range of motion, supple without obvious mass or JVD. LUNGS: Bilateral wheezing HEART: Regular rate and rhythm without murmurs, rubs or gallops. ABDOMEN: Soft, normoactive bowel sounds. No tenderness to palpation. No guarding, no rebound. No masses appreciated. EXTREMITIES: Normal range of motion, no pitting or edema. No clubbing or cyanosis. NEUROLOGICAL: Cranial nerves II through XII grossly intact. Normal speech, moving all extremities. PSYCH: Normal mood, normal affect. SKIN: Warm, Dry, normal turgor, no rashes or lesions noted. Course - Re-evaluation Re-evalutation: 05/19/18 16:13 Note: This is a 68-year-old man who presents with progressively worsening shortness of breath. Patient was seen in the emergency room 3 days ago and CTA at that time showed increasing spiculated mass with possible superimposed pneumonia. Thus he was started on oral antibiotics which is not been able to tolerate because of increasing weakness and decreased p.o. intake. He does have a leukocytosis (12,000) with 10% bands and a mildly elevated lactic acid. So he has Sirs with possible pneumonia in the setting of COPD exacerbation with failed outpatient management and he has underlying immune compromise due to his lung cancer. Treatment will be IV fluids, IV steroids, IV antibiotics, albuterol and ipratropium nebulizers. - Vital Signs Vital signs: Temp Pulse Resp BP Pulse Ox 98.6 F 113 H 24 H 103/67 94 05/19/18 14:19 05/19/18 14:19 05/19/18 16:01 05/19/18 16:01 05/19/18 16:01 - Laboratory Result Diagrams: 05/19/18 14:15 05/19/18 14:15 Laboratory results interpreted by me: 05/19/18 05/19/18 05/19/18 14:15 14:15 14:15 WBC 12.3 H RBC 4.29 L Band Neutrophils % 10 H Lymphocytes % (Manual) 7 L Abs Neuts (Manual) 10.8 H Sodium 135.6 L Chloride 96 L Lactic Acid 2.3 H Total Bilirubin 3.1 H Direct Bilirubin 2.4 H Alkaline Phosphatase 137 H Total Protein 6.0 L Albumin 3.0 L - EKG Interpretation by Mi EKG shows normal: Sinus rhythm Rate: Normal Rhythm: NSR - EKG shows sinus tachycardia with a ventricular rate of 112, no acute ST-T wave changes Doctor's Discharge - Discharge Clinical Impression: Sirs with pneumonia, COPD exacerbation Condition: Stable Disposition: ADMITTED INPATIENT
[2018-05-19 14:55] LABS: VENOUS BLOOD HCO3 25.5 mmol/L (20-32); VENOUS BLOOD PH 7.42 (7.30-7.42)
[2018-05-19 15:00] LABS: HEMATOCRIT 39.8 % (37.9-51.0); HEMOGLOBIN 13.7 g/dL (13.5-17.0); MEAN CORPUSCULAR HGB CONC 34.5 g/dL (32.0-36.0); MEAN CORPUSCULAR VOLUME 93 fl (80-97); PLATELET COUNT 346 10^3/uL (150-450); RED BLOOD COUNT 4.29 10^6/uL (4.35-5.55); RED CELL DISTRIBUTION WIDTH 13.9 % (11.5-14.0); WHITE BLOOD COUNT 12.3 10^3/uL (4.0-10.5)
[2018-05-19 15:03] LABS: ALANINE AMINOTRANSFERASE 32 U/L (21-72); ALKALINE PHOSPHATASE 137 U/L (38-126); ANION GAP 13 (5-19); ASPARTATE AMINO TRANSFERASE 22 U/L (17-59); BILIRUBIN,DIRECT 2.4 mg/dL (0.0-0.4); BILIRUBIN,TOTAL 3.1 mg/dL (0.2-1.3); BLOOD UREA NITROGEN 20 mg/dL (7-20); CALCIUM 9.4 mg/dL (8.4-10.2); CARBON DIOXIDE 27 mmol/L (22-30); CHLORIDE 96 mmol/L (98-107); GLUCOSE 108 mg/dL (75-110); POTASSIUM 4.4 mmol/L (3.6-5.0); SODIUM 135.6 mmol/L (137-145)
[2018-05-19 15:30] LABS: ABSOLUTE LYMPHOCYTES# (MANUAL) 0.9 10^3/uL (0.5-4.7); ABSOLUTE MONOCYTES # (MANUAL) 0.6 10^3/uL (0.1-1.4); ABSOLUTE NEUTROPHILS# (MANUAL) 10.8 10^3/uL (1.7-8.2); BAND NEUTROPHILS % (MANUAL) 10 % (3-5); BASOPHILS % (MANUAL) 0 % (0-2); EOSINOPHILS % (MANUAL) 0 % (0-6); HYPOCHROMASIA SLIGHT; LYMPHOCYTES % (MANUAL) 7 % (13-45); MONOCYTES % (MANUAL) 5 % (3-13); PLATELET COMMENT ADEQUATE; POLYCHROMASIA SLIGHT; SEGMENTED NEUTROPHILS % (MAN) 78 % (42-78); TOTAL CELLS COUNTED 100; TOXIC GRANULATION SLIGHT; TOXIC VACUOLATION PRESENT
[2018-05-19] MEDS ORDERED: CEFTRIAXONE 1 GM/D5W RTU 1 GM/50 ML RTUPB IV ONE (15:30)
[2018-05-19] MEDS ORDERED: IPRATROPIUM/ALBUTEROL 0.5-2.5 MG/3 ML AMPUL NEB ONE (15:30)
[2018-05-19] MEDS ORDERED: METHYLPREDNISOLONE INJ 125 MG/2 ML SDV IV ONE (15:30)
[2018-05-19] MEDS ORDERED: CEFTRIAXONE INJ 1000 MG VIAL ONE (15:47)
--- NOTE | 2018-05-19 15:49 | RADIOLOGY REPORT (SQ) ---
EXAM DESCRIPTION: CHEST SINGLE VIEW COMPLETED DATE/TIME: 05/19/2018 3:05 pm REASON FOR STUDY: chest pain COMPARISON: None. EXAM PARAMETERS: NUMBER OF VIEWS: One view. TECHNIQUE: Single frontal radiographic view of the chest acquired. RADIATION DOSE: NA LIMITATIONS: None. FINDINGS: LUNGS AND PLEURA: Hyperinflation lungs is consistent with COPD. There is a cavitary infil trate in the in the left upper lobe with left apical and lateral pleural thickening. Volume loss of the left lung is noted. MEDIASTINUM AND HILAR STRUCTURES: No masses. Contour normal. HEART AND VASCULAR STRUCTURES: The heart is normal with normal pulmonary vasculature. BONES: No acute findings. HARDWARE: None in the chest. OTHER: No other significant finding. IMPRESSION: 1. COPD. Cavitary infiltrate left upper lobe with left apical and lateral pleural thic kening. Otherwise, no significant change. TECHNICAL DOCUMENTATION: JOB ID: [id number] [employer]- All Rights Reserved Reading location - IP/workstation name: [email or web address]
--- NOTE | 2018-05-19 16:01 | EKG REPORT ---
SEVERITY:- ABNORMAL ECG - SINUS TACHYCARDIA LEFT ANTERIOR FASCICULAR BLOCK BORDERLINE T ABNORMALITIES, ANT-LAT LEADS : Confirmed by: Bryon Gandara 19-May-2018 16:00:14
--- NOTE | 2018-05-19 16:18 | ER Document Report ---
ED General - General Chief Complaint: Respiratory Distress Stated Complaint: GENERAL WEAKNESS Time Seen by Provider: 05/19/18 14:25 Mode of Arrival: Medic Information source: Patient Notes: This is a 68-year-old man with a history of COPD, lung cancer (diagnosed December of this year by biopsy, status post chemotherapy and radiation therapy) who was recently in the emergency room for increasing shortness of breath and started on an oral antibiotic (3 days ago) who was brought in by ambulance from the oncologist office for worsening shortness of breath, confusion decreased p.o. intake and not tolerating oral antibiotics. Patient's oxygen saturation was noted to be 90% on room air. He is on no supplemental oxygen at home. TRAVEL OUTSIDE OF THE [place] IN LAST 30 DAYS: No - HPI Onset: Last week Onset/Duration: Gradual Quality of pain: No pain Severity: None Pain Level: Denies Associated symptoms: Nausea, Shortness of breath. denies: Chest pain, Fever Exacerbated by: Movement Relieved by: Denies Similar symptoms previously: Yes Recently seen / treated by doctor: Yes - Related Data Allergies/Adverse Reactions: atorvastatin [From Lipitor] Allergy (Verified 03/30/16 18:35) gabapentin Allergy (Verified 03/30/16 18:35) pravastatin [From Pravachol] Allergy (Verified 03/30/16 18:35) pregabalin [From Lyrica] Allergy (Verified 03/30/16 18:35) Past Medical History - General Information source: Patient - Social History Smoking Status: Current Every Day Smoker Cigarette use (# per day): Yes - 1 pack/day Chew tobacco use (# tins/day): No Frequency of alcohol use: None Drug Abuse: None Lives with: Family Family History: Reviewed & Not Pertinent Patient has suicidal ideation: No Patient has homicidal ideation: No - Past Medical History Cardiac Medical History: Denies: Hx Coronary Artery Disease, Hx Heart Attack, Hx Hypertension Pulmonary Medical History: Reports: Hx COPD Denies: Hx Asthma, Hx Bronchitis, Hx Pneumonia Neurological Medical History: Denies: Hx Cerebrovascular Accident, Hx Seizures Renal/ Medical History: Denies: Hx Peritoneal Dialysis Musculoskeletal Medical History: Denies Hx Arthritis Surgical Hx: Negative - Immunizations Hx Diphtheria, Pertussis, Tetanus Vaccination: No Review of Systems - Review of Systems Constitutional: denies: Chills, Fever EENT: No symptoms reported Cardiovascular: denies: Chest pain, Palpitations, Heart racing Respiratory: Cough, Short of breath, Wheezing Gastrointestinal: Poor appetite, Poor fluid intake Genitourinary: No symptoms reported Male Genitourinary: No symptoms reported Musculoskeletal: No symptoms reported Skin: No symptoms reported Hematologic/Lymphatic: No symptoms reported Neurological/Psychological: Confusion, Weakness Physical Exam - Vital signs Vitals: Resp 20 05/19/18 13:55 Notes: Physical exam: GENERAL: Cachectic, ill-appearing man who does appear short of breath. He is tachycardic with a heart rate of 112. HEAD: Atraumatic, normocephalic. EYES: Pupils equal round and reactive to light, extraocular movements intact, sclera anicteric, conjunctiva are normal. ENT: TMs normal, nares patent, oropharynx clear without exudates. Moist mucous membranes. NECK: Normal range of motion, supple without obvious mass or JVD. LUNGS: Bilateral wheezing HEART: Regular rate and rhythm without murmurs, rubs or gallops. ABDOMEN: Soft, normoactive bowel sounds. No tenderness to palpation. No guarding, no rebound. No masses appreciated. EXTREMITIES: Normal range of motion, no pitting or edema. No clubbing or cyanosis. NEUROLOGICAL: Cranial nerves II through XII grossly intact. Normal speech, moving all extremities. PSYCH: Normal mood, normal affect. SKIN: Warm, Dry, normal turgor, no rashes or lesions noted. Course - Re-evaluation Re-evalutation: 05/19/18 16:18 Note: This is a 68-year-old man who presents with progressively worsening shortness of breath. Patient was seen in the emergency room 3 days ago and CTA at that time showed increasing spiculated mass with possible superimposed pneumonia. Thus he was started on oral antibiotics which is not been able to tolerate because of increasing weakness and decreased p.o. intake. He does have a leukocytosis (12,000) with 10% bands and a mildly elevated lactic acid. So he has Sirs with possible pneumonia in the setting of COPD exacerbation with failed outpatient management and he has underlying immune compromise due to his lung cancer. Treatment will be IV fluids, IV steroids, IV antibiotics, albuterol and ipratropium nebulizers. - Vital Signs Vital signs: Temp Pulse Resp BP Pulse Ox 98.4 F 70 16 99/59 L 95 05/19/18 19:29 05/19/18 21:38 05/19/18 21:38 05/19/18 19:29 05/19/18 21:38 - Laboratory Result Diagrams: 05/19/18 14:15 05/19/18 14:15 Laboratory results interpreted by me: 05/19/18 05/19/18 05/19/18 14:15 14:15 14:15 WBC 12.3 H RBC 4.29 L Band Neutrophils % 10 H Lymphocytes % (Manual) 7 L Abs Neuts (Manual) 10.8 H Sodium 135.6 L Chloride 96 L Lactic Acid 2.3 H Total Bilirubin 3.1 H Direct Bilirubin 2.4 H Alkaline Phosphatase 137 H Total Protein 6.0 L Albumin 3.0 L Critical Care Note - Critical Care Note Total time excluding time spent on procedures (mins): 60 Discharge - Discharge Clinical Impression: Sirs with pneumonia, COPD exacerbation Condition: Stable Disposition: ADMITTED INPATIENT Admitting Provider: Hospitalist - Dr Roldan Unit Admitted: Telemetry
--- NOTE | 2018-05-19 17:13 | PDOC H&P ---
History of Present Illness Patient complains of: Shortness of breath History of Present Illness: JOCELYN COSBY is a 68 year old male who has history of COPD, dementia, lung cancer who is an active smoker. Patient has dementia and did not provide much history. His mother was at bedside and she also did not provide any valid history. From what I can tell, he has been suffering from progressive shortness of breath, fever, cough for about few days. He has lung cancer and apparently went through chemotherapy. The status of his cancer is unknown. He has COPD and still actively smoking. Past Medical History Cardiac Medical History: Denies: Coronary Artery Disease, Myocardial Infarction, Hypertension Pulmonary Medical History: Reports: Chronic Obstructive Pulmonary Disease (COPD) Denies: Asthma, Bronchitis, Pneumonia Neurological Medical History: Denies: Seizures Malignancy Medical History: Reports: Lung Cancer Musculoskeltal Medical History: Denies: Arthritis Psychiatric Medical History: Reports: Tobacco Dependency Hematology: Denies: Anemia Social History Smoking Status: Current Every Day Smoker Frequency of Alcohol Use: Occasional Family History Family History: Other - Could not be obtained due to dementia Parental Family History Reviewed: Yes Children Family History Reviewed: Yes Sibling(s) Family History Reviewed.: Yes Medication/Allergy Allergies/Adverse Reactions: atorvastatin [From Lipitor] Allergy (Verified 03/30/16 18:35) gabapentin Allergy (Verified 03/30/16 18:35) pravastatin [From Pravachol] Allergy (Verified 03/30/16 18:35) pregabalin [From Lyrica] Allergy (Verified 03/30/16 18:35) Physical Exam Vital Signs: Temp Pulse Resp BP Pulse Ox 98.6 F 113 H 24 H 103/67 94 05/19/18 14:19 05/19/18 14:19 05/19/18 16:01 05/19/18 16:01 05/19/18 16:01 Intake & Output 05/18/18 05/19/18 05/20/18 06:59 06:59 06:59 Intake Total 0 Output Total 0 Balance 0 Weight 141 lb 1.533 oz General appearance: PRESENT: mild distress, thin Head exam: PRESENT: atraumatic, normocephalic Eye exam: PRESENT: conjunctiva pink. ABSENT: conjunctival injection, scleral icterus Ear exam: PRESENT: bleeding Mouth exam: PRESENT: moist, tongue midline Neck exam: ABSENT: carotid bruit, JVD, lymphadenopathy, thyromegaly Respiratory exam: PRESENT: prolonged expiratory phas, rhonchi, tachypnea, wheezes. ABSENT: rales Cardiovascular exam: PRESENT: RRR. ABSENT: diastolic murmur, rubs, systolic murmur Pulses: PRESENT: normal dorsalis pedis pul Vascular exam: PRESENT: normal capillary refill GI/Abdominal exam: PRESENT: normal bowel sounds, soft. ABSENT: distended, guarding, mass, organolmegaly, rebound, tenderness Rectal exam: PRESENT: deferred Extremities exam: PRESENT: full ROM. ABSENT: calf tenderness, clubbing, pedal edema Neurological exam: ABSENT: oriented to person, oriented to place, oriented to time, oriented to situation Psychiatric exam: PRESENT: other - Dementia. ABSENT: homicidal ideation, suicidal ideation Skin exam: PRESENT: dry, intact, warm. ABSENT: cyanosis, rash Results Laboratory Results: 05/19/18 14:15 05/19/18 14:15 05/19/18 05/19/18 05/19/18 14:15 14:15 14:15 WBC 12.3 H RBC 4.29 L Hgb 13.7 Hct 39.8 MCV 93 MCH 32.0 MCHC 34.5 RDW 13.9 Plt Count 346 Seg Neutrophils % Not Reportable Lymphocytes % Not Reportable Monocytes % Not Reportable Eosinophils % Not Reportable Basophils % Not Reportable Absolute Neutrophils Not Reportable Absolute Lymphocytes Not Reportable Absolute Monocytes Not Reportable Absolute Eosinophils Not Reportable Absolute Basophils Not Reportable VBG pH VBG pCO2 VBG HCO3 VBG Base Excess Sodium 135.6 L Potassium 4.4 Chloride 96 L Carbon Dioxide 27 Anion Gap 13 BUN 20 Creatinine 0.86 Est GFR ( Amer) > 60 Est GFR (Non-Af Amer) > 60 Glucose 108 Lactic Acid 2.3 H Calcium 9.4 Magnesium 1.6 Total Bilirubin 3.1 H AST 22 ALT 32 Alkaline Phosphatase 137 H Total Protein 6.0 L Albumin 3.0 L 05/19/18 14:15 WBC RBC Hgb Hct MCV MCH MCHC RDW Plt Count Seg Neutrophils % Lymphocytes % Monocytes % Eosinophils % Basophils % Absolute Neutrophils Absolute Lymphocytes Absolute Monocytes Absolute Eosinophils Absolute Basophils VBG pH 7.42 VBG pCO2 40.0 VBG HCO3 25.5 VBG Base Excess 1.0 Sodium Potassium Chloride Carbon Dioxide Anion Gap BUN Creatinine Est GFR ( Amer) Est GFR (Non-Af Amer) Glucose Lactic Acid Calcium Magnesium Total Bilirubin AST ALT Alkaline Phosphatase Total Protein Albumin Impressions: Chest X-Ray 05/19/18 14:35 IMPRESSION: 1. COPD. Cavitary infiltrate left upper lobe with left apical and lateral pleural thickening. Otherwise, no significant change. Assessment & Plan - Diagnosis (1) Lung cancer Is this a current diagnosis for this admission?: Yes Plan: Continue to follow-up with oncology after discharge (2) COPD exacerbation Is this a current diagnosis for this admission?: Yes Plan: Start p.o. prednisone, DuoNeb every 4 hours (3) Pneumonia Is this a current diagnosis for this admission?: Yes Plan: IV Zosyn, check sputum and blood culture (4) Dementia Is this a current diagnosis for this admission?: Yes
[2018-05-19] MEDS: PREDNISONE 20 MG TABLET PO SCH (17:55)
[2018-05-19] MEDS: PIPERACILLIN SODIUM/TAZOBACTAM 3.375 GM in NORMAL SALINE 100 ML IV SCH (17:55)
[2018-05-19] MEDS ORDERED: PIPERACILLIN/TAZOBACTAM 3.375 GM VIAL IV SCH (18:00)
[2018-05-19] MEDS: NICOTINE 14 MG/24 HR PATCH.TD24 TD SCH (20:33)
[2018-05-19] MEDS: IPRATROPIUM/ALBUTEROL 0.5-2.5 MG/3 ML AMPUL NEB SCH (21:38)
[2018-05-20] MEDS: IPRATROPIUM/ALBUTEROL 0.5-2.5 MG/3 ML AMPUL NEB SCH ×4 (00:30→11:48)
[2018-05-20] MEDS: PIPERACILLIN SODIUM/TAZOBACTAM 3.375 GM in NORMAL SALINE 100 ML IV SCH ×3 (00:33→12:11)
[2018-05-20] MEDS: PREDNISONE 20 MG TABLET PO SCH (09:48)
[2018-05-20] MEDS: NICOTINE 14 MG/24 HR PATCH.TD24 TD SCH (09:48)
[2018-05-20] MEDS ORDERED: ALBUTEROL SULFATE 0.083% NEB 2.5 MG/3 ML AMPUL NEB PRN (13:03)
[2018-05-20] MEDS: BUDESONIDE NEB 0.5 MG/2 ML AMPUL NEB SCH ×2 (13:24→21:16)
--- NOTE | 2018-05-20 13:24 | PDOC PROGRESS REPORT ---
Subjective Progress Note for:: 05/20/18 Subjective:: JOCELYN BURNS is a 68 year old male who has history of COPD, dementia and lung cancer who is an active smoker. Due to his dementia he can not provide reliable medical history. Presented to the emergency room with increased dyspnea and a worsening pneumonia compared to his symptoms and x-ray findings 3 days earlier when he was first evaluated in the ER and treated with oral doxycycline. 05/20/18: Mr. Burns's family states that he seems to be doing considerably better than he was at the time of his admission. His wheezing is significantly improved and he is moving air and being active in the room without O2 support. He continues to have dementia and cannot remember if he smokes cigarettes, which he does at the rate of approximately 2 packs/day per his daughter. His respiratory therapy will be changed to every 8 hour ipratropium and Xopenex with every hour albuterol as needed. His antibiotic will be changed to Levaquin 750 mg p.o. daily for at least 4 doses. He will be continued on his current steroid dosage of 40 mg of prednisone daily. Reason For Visit: PNEUMONIA,COPD Physical Exam Vital Signs: Temp Pulse Resp BP Pulse Ox 97.2 F 91 16 98/64 L 95 05/20/18 11:22 05/20/18 11:48 05/20/18 11:48 05/20/18 11:22 05/20/18 11:48 Intake & Output 05/19/18 05/20/18 05/21/18 06:59 06:59 06:59 Intake Total 300 Balance 300 Weight 58.9 kg General appearance: PRESENT: no acute distress, cooperative, thin Head exam: PRESENT: atraumatic, normocephalic Eye exam: PRESENT: conjunctiva pink, EOMI. ABSENT: conjunctival injection, nystagmus, periorbital swelling, scleral icterus Ear exam: PRESENT: normal external ear exam. ABSENT: bleeding, drainage Mouth exam: PRESENT: moist, tongue midline Neck exam: ABSENT: thyromegaly, tracheal deviation Respiratory exam: PRESENT: prolonged expiratory phas - Minimally prolonged, symmetrical, unlabored, wheezes - Minimal end expiratory wheezes. ABSENT: accessory muscle use, rales, retraction, rhonchi Cardiovascular exam: PRESENT: RRR. ABSENT: clicks, diastolic murmur, gallop, rubs, systolic murmur Vascular exam: PRESENT: normal capillary refill. ABSENT: pallor GI/Abdominal exam: PRESENT: normal bowel sounds, soft Rectal exam: PRESENT: deferred Extremities exam: ABSENT: joint swelling, pedal edema Musculoskeletal exam: PRESENT: full ROM, normal inspection Neurological exam: PRESENT: alert, oriented to person, CN II-XII grossly intact. ABSENT: oriented to place, oriented to time, oriented to situation, motor sensory deficit Psychiatric exam: PRESENT: flat affect, normal mood Skin exam: ABSENT: jaundice, rash, urticaria Results Laboratory Results: 05/19/18 18:25 Lactic Acid 1.2 Impressions: Chest X-Ray 05/19/18 14:35 IMPRESSION: 1. COPD. Cavitary infiltrate left upper lobe with left apical and lateral pleural thickening. Otherwise, no significant change. Assessment & Plan - Diagnosis (1) Cavitary pneumonia Is this a current diagnosis for this admission?: Yes Plan: The cavitary pneumonia is in the left upper lobe and will be treated with the same antibiotic therapy provided for the patient's COPD. This will be Levaquin 750 mg daily. (2) COPD exacerbation Is this a current diagnosis for this admission?: Yes Plan: Patient showed significant wheezing and dyspnea at the time of his admission this is been improving with his pulmonary toilet. Pulmonary toilet will be reduced to 3 times a day with a as needed every hour treatment available. Patient will be continued on steroids orally as prescribed and his antibiotic will be changed to Levaquin to cover the broad spectrum of smoker's community- acquired bacterial pulmonary infections. (3) Dementia Qualifiers: Dementia type: Alzheimer's disease Dementia behavioral disturbance: without behavioral disturbance Is this a current diagnosis for this admission?: Yes Plan: Patient has significant dementia features with severe short-term and moderate long-term memory losses. No specific treatment will be advanced. The ability to treat the patient's other medical problems is in some ways impaired by the inability to obtain an accurate and reliable medical history. (4) Tobacco dependence due to cigarettes Is this a current diagnosis for this admission?: Yes Plan: Patient obviously is unable to use tobacco products within the hospital confines a nicotine patch will be offered as needed. - Time Time Spent with patient: 35 or more minutes Medications reviewed and adjusted accordingly: Yes Anticipated discharge: Home Within: within 72 hours
[2018-05-20] MEDS: LEVOFLOXACIN 750 MG TABLET PO SCH (14:45)
[2018-05-20] MEDS: LEVALBUTEROL HCL NEB 1.25 MG/3 ML AMPUL NEB SCH (16:06)
[2018-05-20] MEDS: IPRATROPIUM BROMIDE 0.02% NEB 0.5 MG/2.5 ML AMPUL NEB SCH (16:06)
[2018-05-20 16:32] LABS: HEMATOCRIT 35.1 % (37.9-51.0); HEMOGLOBIN 12.1 g/dL (13.5-17.0); MEAN CORPUSCULAR HEMOGLOBIN 31.8 pg (27.0-33.4); MEAN CORPUSCULAR HGB CONC 34.5 g/dL (32.0-36.0); MEAN CORPUSCULAR VOLUME 92 fl (80-97); PLATELET COUNT 352 10^3/uL (150-450); RED BLOOD COUNT 3.81 10^6/uL (4.35-5.55); RED CELL DISTRIBUTION WIDTH 14.2 % (11.5-14.0); WHITE BLOOD COUNT 15.1 10^3/uL (4.0-10.5)
[2018-05-20 16:54] LABS: ANION GAP 12 (5-19); BLOOD UREA NITROGEN 32 mg/dL (7-20); CALCIUM 9.7 mg/dL (8.4-10.2); CARBON DIOXIDE 25 mmol/L (22-30); CHLORIDE 100 mmol/L (98-107); GLUCOSE 155 mg/dL (75-110); POTASSIUM 3.5 mmol/L (3.6-5.0); SODIUM 137.4 mmol/L (137-145)
[2018-05-21] MEDS: LEVALBUTEROL HCL NEB 1.25 MG/3 ML AMPUL NEB SCH ×2 (00:16→09:10)
[2018-05-21] MEDS: IPRATROPIUM BROMIDE 0.02% NEB 0.5 MG/2.5 ML AMPUL NEB SCH ×2 (00:17→09:10)
[2018-05-21] MEDS ORDERED: DIPHENHYDRAMINE HCL 50 MG CAPSULE PO PRN (06:08)
[2018-05-21] MEDS ORDERED: NICOTINE 21 MG/24 HR PATCH.TD24 TD ONE (06:15)
[2018-05-21] MEDS: BUDESONIDE NEB 0.5 MG/2 ML AMPUL NEB SCH (09:10)
[2018-05-21] MEDS: LEVOFLOXACIN 750 MG TABLET PO SCH (09:34)
[2018-05-21] MEDS: PREDNISONE 20 MG TABLET PO SCH (09:34)
[2018-05-21 14:38] VITALS: BP 99/59
--- NOTE | 2018-05-21 17:12 | PDOC DISCHARGE SUMMARY ---
General - Admit/Disc Date/PCP Admission Date/Primary Care Provider: 05/19/18 17:07 Discharge Date: 05/21/18 - Discharge Diagnosis (1) Cavitary pneumonia Is this a current diagnosis for this admission?: Yes Summary: Mr. Burns is worsening pneumonia was addressed by treating him with IV fluids , nebulizer treatments, IV and then oral Levaquin as well as IV and then oral steroids to which he has shown significant improvement with a dramatic reduction in his dyspnea and wheezing. He is having little or no cough and continues to be free of fever and chills. He is somewhat demented and is unable to contribute substantially to his care but he and his family deny any evidence of hemoptysis or other abnormal bleeding. He will be continued on Levaquin and steroids after his hospitalization to finish his overall course. He will follow-up with his primary care provider and music video producer within a few days of his discharge. (2) COPD exacerbation Is this a current diagnosis for this admission?: Yes Summary: Patient's treatment for his COPD exacerbation is essentially the same as his treatment for pneumonia. He was given IV fluids, nebulizer therapy, IV then oral steroids and IV then oral antibiotics. He had a dramatic response to his treatment and was requesting to be discharged home on 05/21/2018. His was in agreement with this and desired to bring him home per his wishes. He will be continued on antibiotic therapy as well as steroids to complete his course over the next two days, and will follow up with his music video producer in 2-5 days and his primary care provider within 1-2 weeks. (3) Dementia Is this a current diagnosis for this admission?: Yes Summary: Mr. Burns's apparent early onset Alzheimer's disease has affected the ability to treat him and that it is virtually impossible to get an accurate and reliable counting of his medical history. Is also nearly impossible to obtain any type of review of systems and all information that is obtained is of dubious accuracy. (4) Tobacco dependence due to cigarettes Is this a current diagnosis for this admission?: Yes Summary: Patient was treated with NicoDerm patches and this did help minimally to reduce his frequent requests to smoke cigarettes. NicoDerm patches may be continued when the patient goes home if he is going to refrain from smoking. A prescription for NicoDerm patches was supplied at the time of discharge. - Additional Information Resuscitation Status: Full Code Discharge Diet: As Tolerated, Regular Discharge Activity: Activity As Tolerated, Balance Activity w/Rest, Energy Conservation, Walk Frequently Prescriptions: Ipratropium [place] [Atrovent Hfa Inhalation Aerosol 12.9 gm Mdi] 200 puff IH TID 30 Days #1 inhaler Levalbuterol Tartrate [Levalbuterol Tartrate Hfa] 2 puff IH TID 30 Days #1 hfa.aer.ad Levofloxacin [Levaquin 750 mg Tablet] 750 mg PO PCBRKFST 2 Days #2 tablet Mirtazapine [Remeron 15 mg Tablet] 7.5 mg PO QHS 30 Days #30 tablet Nicotine [Nicoderm 21 mg/24 Hr Transderm Patch] 1 each TD DAILY 14 Days #14 patch.td24 Prednisone [Deltasone 20 mg Tablet] 40 mg PO PCBRKFST 2 Days #4 tablet Home Medications: Fluticasone/Umeclidin/Vilanter [Trelegy Ellipta 100-62.5-25] 1 puff IH DAILY 09/05 Levothyroxine Sodium [Synthroid 0.15 mg Tablet] 0.15 mg PO Q6AM 05/19/18 Montelukast Sodium [Singulair 10 mg Tablet] 10 mg PO QPM 05/19/18 Ubidecarenone/Vit E Acet [Co Q-10 100 mg Softgel] 1 cap PO DAILY 05/19/18 Ipratropium [place] [Atrovent Hfa Inhalation Aerosol 12.9 gm Mdi] 200 puff IH TID 30 Days #1 inhaler 05/21/18 Levalbuterol Tartrate [Levalbuterol Tartrate Hfa] 2 puff IH TID 30 Days #1 hfa.aer.ad 05/21/18 Levofloxacin [Levaquin 750 mg Tablet] 750 mg PO PCBRKFST 2 Days #2 tablet Mirtazapine [Remeron 15 mg Tablet] 7.5 mg PO QHS 30 Days #30 tablet 05/21/18 Nicotine [Nicoderm 21 mg/24 Hr Transderm Patch] 1 each TD DAILY 14 Days #14 patch.td24 05/21/18 Prednisone [Deltasone 20 mg Tablet] 40 mg PO PCBRKFST 2 Days #4 tablet 05/21/18 History of Present Illness Patient complains of: Dyspnea History of Present Illness: JOCELYN BURNS is a 68 year old male who has history of COPD, dementia and lung cancer who is an active smoker. Due to his dementia he can not provide reliable medical history. He presented to the emergency room with increased dyspnea and a worsening pneumonia compared to his symptoms and x-ray findings 3 days earlier when he was first evaluated in the ER and treated with oral doxycycline. Hospital Course Hospital Course: 05/20/18: Mr. Burns's family states that he seems to be doing considerably better than he was at the time of his admission. His wheezing is significantly improved and he is moving air and being active in the room without O2 support. He continues to have dementia and cannot remember if he smokes cigarettes, which he does at the rate of approximately 2 packs/day per his daughter. His respiratory therapy will be changed to every 8 hour ipratropium and Xopenex with every hour albuterol as needed. His antibiotic will be changed to Levaquin 750 mg p.o. daily for at least 4 doses. He will be continued on his current steroid dosage of 40 mg of prednisone daily. 05/21/18: Mr. Burnss states that he is doing very well again today she thinks he is better today than he has been for quite some time at home. He has been asking to go home and she is in agreement that he should be able to come home with her today if it is approved by me. His symptoms of wheezing and dyspnea have resolved completely and, though he still has a few rhonchi in his left upper lung as well as some coarse crackles or rales and diminished breath sounds in the same area, his overall respiratory function is dramatically improved from his admission status. Because of his excellent resolution of symptoms he will be discharged home in improved and stable condition for close follow-up with his primary care provider and especially close follow-up with his music video producer. Physical Exam Vital Signs: Temp Pulse Resp BP Pulse Ox 97.4 F 76 24 H 99/59 L 95 05/21/18 14:47 05/21/18 14:47 05/21/18 14:47 05/21/18 14:47 05/21/18 14:47 Intake & Output 05/20/18 05/21/18 05/22/18 06:59 06:59 06:59 Intake Total 300 691 118 Balance 300 691 118 Weight 58.9 kg 60 kg General appearance: PRESENT: no acute distress, cooperative Head exam: PRESENT: atraumatic, normocephalic Eye exam: PRESENT: conjunctiva pink. ABSENT: conjunctival injection, nystagmus , periorbital swelling, scleral icterus Ear exam: PRESENT: normal external ear exam. ABSENT: bleeding, drainage Mouth exam: PRESENT: moist, tongue midline Neck exam: ABSENT: thyromegaly, tracheal deviation Respiratory exam: PRESENT: crackles - Left upper lobe, decreased breath sounds - Left upper lobe, rales - Left upper lobe, rhonchi - Left upper lobe, symmetrical, unlabored, wheezes - Minimal in the left upper lobe. ABSENT: accessory muscle use, prolonged expiratory phas, retraction Cardiovascular exam: PRESENT: RRR. ABSENT: bradycardia, clicks, diastolic murmur, gallop, rubs, systolic murmur, tachycardia Vascular exam: PRESENT: normal capillary refill. ABSENT: pallor GI/Abdominal exam: PRESENT: normal bowel sounds, soft Rectal exam: PRESENT: deferred Extremities exam: ABSENT: joint swelling, pedal edema Musculoskeletal exam: PRESENT: full ROM, normal inspection Neurological exam: PRESENT: alert, oriented to person, CN II-XII grossly intact. ABSENT: oriented to place, oriented to time, oriented to situation, motor sensory deficit Psychiatric exam: PRESENT: appropriate affect - Affect is appropriate but terse , depressed - Mood continues to be somewhat depressed Skin exam: ABSENT: jaundice, rash, urticaria Results Laboratory Results: 05/20/18 16:05 05/20/18 16:05 05/20/18 05/20/18 16:05 16:05 Sodium 137.4 Potassium 3.5 L Chloride 100 Carbon Dioxide 25 Anion Gap 12 BUN 32 H Creatinine 0.79 Est GFR ( Amer) > 60 Est GFR (Non-Af Amer) > 60 Glucose 155 H Calcium 9.7 Magnesium 2.2 TSH 0.07 L Impressions: Chest X-Ray 05/19/18 14:35 IMPRESSION: 1. COPD. Cavitary infiltrate left upper lobe with left apical and lateral pleural thickening. Otherwise, no significant change. Qualifiers - * PATIENT BEING DISCHARGED WITH ANY OF THE FOLLOWING DIAGNOSIS: No Plan Discharge Plan: Discharged home in improved and stable condition Time Spent: Greater than 30 Minutes
[2018-05-21] MEDS ORDERED: MONTELUKAST SODIUM 10 MG TABLET PO SCH (18:00)
[2018-05-21] MEDS ORDERED: MIRTAZAPINE 15 MG TABLET PO SCH (22:00)
[2018-05-22] MEDS ORDERED: LEVOTHYROXINE SODIUM 0.15 MG TABLET PO SCH (06:00)
[2018-05-22] MEDS ORDERED: FLUTICASONE/UMECLIDIN/VILANTER 100-62.5-25 MCG/DOSE IH SCH (10:00)
[2018-05-22] MEDS ORDERED: (PENDING PHARMACY ID) (Ubidecarenone/Vit E Acet [Co Q-10 100 Mg Softgel] 1 CAP) PO SCH (10:00)
[2018-05-22] MEDS ORDERED: NICOTINE 21 MG/24 HR PATCH.TD24 TD SCH (10:00)
== END 2018-05-21 15:25 | disposition home health service (06) | DRG 194 ==
LOC: ER 13:48 → EH 17:07 → 4S 19:17
PROVIDERS: ADMIT Family Medicine; ATTEND Family Medicine
DX: J18.9 Pneumonia, unspecified organism (principal); J44.1 Chronic obstructive pulmonary disease with (acute) exacerbation; C34.90 Malignant neoplasm of unspecified part of unspecified bronchus or lung; F05 Delirium due to known physiological condition; J44.0 Chronic obstructive pulmonary disease with (acute) lower respiratory infection; G30.0 Alzheimer's disease with early onset; F02.80 Dementia in other diseases classified elsewhere, unspecified severity, without behavioral disturbance, psychotic disturbance, mood disturbance, and anxiety; F17.210 Nicotine dependence, cigarettes, uncomplicated
CPT/HCPCS: 36415; 71045; 71275; 80048; 80053; 81001; 82140; 82803; 83605; 83735; 83880; 84443; 84484; 85025; 85027; 87040; 87077; 93005; 93010; 94640; 96365; 96375; 99285; 99291; J0696; J2543; J2930; J3490; J7512; J7620

== ENCOUNTER 2018-06-08 15:48 | Observation (INO) | payer MEDICARE, MEDICAID ==
[2018-06-08] MEDS ORDERED: FENTANYL CITRATE INJ/PF 100 MCG/2 ML AMPUL IV ONE (16:23)
--- NOTE | 2018-06-08 16:24 | EKG REPORT ---
SEVERITY:- ABNORMAL ECG - SINUS RHYTHM LAD, CONSIDER LEFT ANTERIOR FASCICULAR BLOCK LOW VOLTAGE IN FRONTAL LEADS BORDERLINE T ABNORMALITIES, ANT-LAT LEADS : Confirmed by: Nick Olson MD 08-Jun-2018 16:23:25
[2018-06-08] MEDS ORDERED: RINGERS SOLUTION,LACTATED 1,000 ML IV ONE (16:26)
--- NOTE | 2018-06-08 16:38 | ER Document Report ---
ED General - General Chief Complaint: General Weakness Stated Complaint: WEAKNESS Time Seen by Provider: 06/08/18 16:18 Mode of Arrival: Ambulatory Information source: Patient Notes: 68-year-old male with recurrent lung cancer, COPD presents via EMS with complaints of weakness, total body pain. Patient was recently seen and admitted to the hospital but left AGAINST MEDICAL ADVICE because he wanted to smoke. Since that time he has been referred to hospice but is unsure if he is currently enrolled. reports that the patient is refusing to eat or drink. reports that he fell but denies that he has fallen recently. TRAVEL OUTSIDE OF THE [place] IN LAST 30 DAYS: No - HPI Onset: Other Onset/Duration: Constant Quality of pain: Achy Severity: Moderate Associated symptoms: Body/muscle aches. denies: Fever Exacerbated by: Denies Relieved by: Denies Similar symptoms previously: Yes Recently seen / treated by doctor: Yes - Related Data Allergies/Adverse Reactions: atorvastatin [From Lipitor] Allergy (Verified 03/30/16 18:35) gabapentin Allergy (Verified 03/30/16 18:35) pravastatin [From Pravachol] Allergy (Verified 03/30/16 18:35) pregabalin [From Lyrica] Allergy (Verified 03/30/16 18:35) Past Medical History - General Information source: Patient, Relative, Dr. Hayes, [facility] Records - Social History Smoking Status: Current Every Day Smoker Cigarette use (# per day): Yes - 20 Smoking Education Provided: Yes - Smoking cessation counseling was provided for 4 minutes at the bedside Frequency of alcohol use: None Drug Abuse: None Lives with: Spouse/Significant other Family History: Reviewed & Not Pertinent Patient has suicidal ideation: No Patient has homicidal ideation: No - Past Medical History Cardiac Medical History: Denies: Hx Coronary Artery Disease, Hx Heart Attack, Hx Hypertension Pulmonary Medical History: Reports: Hx COPD Denies: Hx Asthma, Hx Bronchitis, Hx Pneumonia Neurological Medical History: Denies: Hx Cerebrovascular Accident, Hx Seizures Renal/ Medical History: Denies: Hx Peritoneal Dialysis Malignancy Medical History: Reports Hx Lung Cancer Musculoskeletal Medical History: Denies Hx Arthritis - Immunizations Hx Diphtheria, Pertussis, Tetanus Vaccination: No Review of Systems - Review of Systems Constitutional: Weakness, Weight loss, Recent illness EENT: denies: Difficulty swallowing Cardiovascular: Lightheaded Respiratory: Short of breath Gastrointestinal: Nausea. denies: Vomiting Genitourinary: denies: Flank pain Male Genitourinary: No symptoms reported Musculoskeletal: Back pain, Muscle pain, Muscle stiffness Skin: denies: Rash Hematologic/Lymphatic: No symptoms reported Neurological/Psychological: Confusion, Weakness -: Yes All other systems reviewed and negative Physical Exam - Vital signs Vitals: BP 115/82 06/08/18 15:52 - Notes Notes: PHYSICAL EXAMINATION: GENERAL: Cachectic, ill-appearing HEAD: Atraumatic, normocephalic. EYES: Pupils equal round and reactive to light, extraocular movements intact, sclera anicteric, conjunctiva are normal. ENT: Nares patent, oropharynx clear without exudates. Moist mucous membranes. NECK: Normal range of motion, supple without lymphadenopathy LUNGS: Diminished breath sounds bilaterally HEART: Regular rate and rhythm without murmurs ABDOMEN: Soft, nontender, nondistended abdomen. No guarding, no rebound. No masses appreciated. Musculoskeletal: Normal range of motion, no pitting or edema. No cyanosis. NEUROLOGICAL: Cranial nerves grossly intact. Normal speech. Normal sensory, motor exams PSYCH: Confused, alert and oriented x2 SKIN: Warm, Dry, normal turgor, no rashes or lesions noted. Course - Re-evaluation Re-evalutation: 68-year-old male with recurrent cancer, COPD presents with complaint of total body pain, decreased appetite and fluid intake. Vital signs reviewed and patient is afebrile, initially hypotensive and not tachycardic. Patient did receive 1 L of IV fluids, fentanyl and on reevaluation he was worked improvement of pain. His blood pressure is now 110/69. Because of the patient' s recent extensive workup no labs or imaging more performed today. 06/08/18 16:35 reports that the patient has been enrolled in hospice but is unsure where and does not know the nurses name or number. I did attempt to call [facility] which does consult on a lot of our patients in the hospital but they do not have him on record. At this time the will go home to see if she can find the information. 06/08/18 17:37 The has brought me the # to home health hospice. I did call [phone] and I am awaiting a callback from the nurse stone chimney mason. 06/08/18 18:[address] Silva the patient's oncologist who believes that hospice is completely appropriate for the patient. I also received a phone call from Leslye from [facility] who agrees to come and evaluate the patient for admission to the hospice hospital. She states that her boss evaluated the patient last week and is concerned that the will be unable to care for the patient. She does state that the would be able to stay with him in the hospice hospital. She is on her way. 06/08/18 18:07 I spoke again to the patient and his who seemed to be confused regarding what they are supposed to do. They are agreeable to speak to the hospice nurse. 06/08/18 18:08 06/08/18 18:53 Hospice nurse has arrived and informed me that I need to call the hospice houses to see if there is a room available. I have left a message for the [facility] at phone number I have also called [facility] and spoke to Dee the on-call nurse who is calling intake to see if there is a bed available. 06/08/18 19:29 I spoke to the charge nurse at [facility] who recommends that I transfer the patient to the [facility] facility [place]. I told her that I am not able to do that from the emergency department. I did speak to our hospitalist who will admit the patient for observation with transfer to [place] tomorrow since he has had a 3-day stay in the last 30 days. I did speak to the patient regarding his CODE STATUS and he is now a DNR. - Vital Signs Vital signs: Temp Pulse Resp BP Pulse Ox 98.2 F 78 16 102/68 100 06/09/18 12:32 06/09/18 15:54 06/09/18 15:54 06/09/18 15:54 06/09/18 15:54 - Laboratory Result Diagrams: 06/08/18 21:21 06/08/18 21:21 Discharge - Discharge Clinical Impression: Tobacco dependence due to cigarettes, COPD exacerbation, Dementia in Alzheimer' s disease with early onset without behavioral disturbance Lung cancer Qualifiers: Laterality: unspecified laterality Lung location: unspecified part of lung Qualified Code(s): C34.90 - Malignant neoplasm of unspecified part of unspecified bronchus or lung Condition: Fair Disposition: ADMITTED OBSERVATION Unit Admitted: Medical Floor
[2018-06-08] MEDS ORDERED: NICOTINE 21 MG/24 HR PATCH.TD24 TD ONE (19:25)
[2018-06-08] MEDS ORDERED: ACETAMINOPHEN 325 MG TABLET PO PRN (20:04)
[2018-06-08] MEDS ORDERED: PROMETHAZINE HCL 25 MG TABLET PO PRN (20:04)
[2018-06-08] MEDS ORDERED: ALBUTEROL SULFATE 0.083% NEB 2.5 MG/3 ML AMPUL NEB PRN (20:04)
[2018-06-08] MEDS ORDERED: PROMETHAZINE HCL INJ 25 MG/1 ML VIAL IV PRN (20:04)
[2018-06-08] MEDS ORDERED: MAG HYDROX/AL HYDROX/SIMETH SUSP 30 ML UDCUP PO PRN (20:04)
[2018-06-08] MEDS ORDERED: MORPHINE SULFATE 10 MG/ML INJ IV PRN (20:14)
--- NOTE | 2018-06-08 20:54 | PDOC H&P ---
History of Present Illness Admission Date/PCP: 06/08/2018 MARVIN ROMAN MD Patient complains of: Generalized weakness History of Present Illness: JOCELYN COSBY is a 68 year old male with medical history of lung cancer, unknown type, dementia, COPD. Comes to the emergency department complaining of generalized weakness and total body pain. The patient was discharged from our facility on 05-21-18 with a diagnosis of cavitary pneumonia in the left upper lobe and COPD exacerbation. The patient went back home but apparently his cannot take care of him as per my discussion with the ED attending. Unfortunately when I arrived to see the patient was gone. In the emergency patient was made DNR, as per the is unable to take care of the patient she does cause with attending in the emergency to make him hospice and transferred to a [facility] facility. Hospice was in the emergency department and were working to transfer to [place] but beds were not available. Past Medical History Pulmonary Medical History: Reports: Chronic Obstructive Pulmonary Disease (COPD) , Pneumonia, Other - Left pneumothorax after lung biopsy Endocrine Medical History: Reports: Hypothyroidism Malignancy Medical History: Reports: Lung Cancer Psychiatric Medical History: Reports: Dementia, Tobacco Dependency, Other - History of delirium Traumatic Medical History: Reports: Pneumothorax Past Surgical History Past Surgical History: Reports: Other - Lung biopsy Social History Lives with: Spouse/Significant other Smoking Status: Current Every Day Smoker Frequency of Alcohol Use: None Hx Recreational Drug Use: No Hx Prescription Drug Abuse: No - Advance Directive Resuscitation Status: Do Not Resuscitate Family History Family History: Reviewed & Not Pertinent Parental Family History Reviewed: No - unable to obtain Children Family History Reviewed: NA Sibling(s) Family History Reviewed.: NA Medication/Allergy Home Medications: Fluticasone/Umeclidin/Vilanter [Trelegy Ellipta 100-62.5-25] 1 puff IH DAILY 09/05 Levothyroxine Sodium [Synthroid 0.15 mg Tablet] 0.15 mg PO Q6AM 05/19/18 Montelukast Sodium [Singulair 10 mg Tablet] 10 mg PO QPM 05/19/18 Ubidecarenone/Vit E Acet [Co Q-10 100 mg Softgel] 1 cap PO DAILY 05/19/18 Ipratropium [place] [Atrovent Hfa Inhalation Aerosol 12.9 gm Mdi] 200 puff IH TID 30 Days #1 inhaler 05/21/18 Levalbuterol Tartrate [Levalbuterol Tartrate Hfa] 2 puff IH TID 30 Days #1 hfa.aer.ad 05/21/18 Levofloxacin [Levaquin 750 mg Tablet] 750 mg PO PCBRKFST 2 Days #2 tablet Mirtazapine [Remeron 15 mg Tablet] 7.5 mg PO QHS 30 Days #30 tablet 05/21/18 Nicotine [Nicoderm 21 mg/24 Hr Transderm Patch] 1 each TD DAILY 14 Days #14 patch.td24 05/21/18 Prednisone [Deltasone 20 mg Tablet] 40 mg PO PCBRKFST 2 Days #4 tablet 05/21/18 Allergies/Adverse Reactions: atorvastatin [From Lipitor] Allergy (Verified 03/30/16 18:35) gabapentin Allergy (Verified 03/30/16 18:35) pravastatin [From Pravachol] Allergy (Verified 03/30/16 18:35) pregabalin [From Lyrica] Allergy (Verified 03/30/16 18:35) Review of Systems Review of Systems: As outlined above, others negative Physical Exam Vital Signs: Temp Pulse Resp BP Pulse Ox 97.7 F 21 H 96/63 L 98 06/08/18 16:17 06/08/18 20:01 06/08/18 20:00 06/08/18 20:01 Intake & Output 06/07/18 06/08/18 06/09/18 06:59 06:59 06:59 Intake Total 1000 Balance 1000 Weight 61.235 kg Additional comments: General appearance: Cachectic, alert and cooperative, and appears to be in no acute distress Head: Normocephalic Eyes: PEERL, EOMI, vision is grossly intact. Ears: External auditory canal and tympanic membranes clear, hearing grossly intact. Nose: No nasal discharge. Throat: Oral cavity and pharynx dry. No inflammation, swelling, exudate or lesions. Neck: Neck supple, nontender without lymphadenopathy, masses or thyromegaly. Cardiac: Normal S1 and S2. No S3, S4 or murmurs. Rhythm is regular. There is no peripheral edema, cyanosis or pallor. Extremities are warm and well perfused. Capillary refill is less than 2 seconds. No carotid bruits. Lungs: Poor inspiratory effort, with mild bibasilar crackles, do not appreciate rhonchi or wheezing or diminished breath sounds. Not using accessory muscles. Abdomen: Positive bowel sounds. Soft. Nondistended, nontender. No guarding or rebound. No masses. No hepatosplenomegaly Extremities: No significant deformity or joint abnormality. No edema. Peripheral pulses intact. No varicosities. Neurological: Cranial nerves II through XII grossly intact. Moves all 4 extremities, decreased strength lower extremities. Skin: Skin pale, normal texture and turgor with no lesions or eruptions, warm and dry. Psychiatric: The mental examination revealed the patient was oriented to person , is confused about place and time Assessment & Plan - Diagnosis (1) Generalized weakness Is this a current diagnosis for this admission?: Yes Plan: Patient comes to the emergency department with his with complaints of generalized weakness and generalized body pain. Apparently cannot take care of him and requested to be transferred to [facility] facility with hospice. The patient has dementia and is confused and is unable to make his own decisions. Patient was made DNR in the emergency department. [facility] on hospice already contacted by they do not have a beta bowel levels. Telephone number [phone], I place a nurses communication to be called in the morning. (2) Lung cancer Qualifiers: Laterality: unspecified laterality Lung location: unspecified part of lung Qualified Code(s): C34.90 - Malignant neoplasm of unspecified part of unspecified bronchus or lung Is this a current diagnosis for this admission?: Yes Plan: Left upper lung cancer, unknown type as the biopsies were taken in [place] and that information has been requested. Patient had a PET scan done about 5 months ago with no apparent active disease however a CTA of the chest was on which shows left upper lobe spiculated mass. In size than the CT done on December this year. (3) Dementia Qualifiers: Dementia type: Alzheimer's disease Dementia behavioral disturbance: without behavioral disturbance Is this a current diagnosis for this admission?: Yes Plan: Probably moderate, unknown type. - Time Time Spent: 30 to 50 Minutes Anticipated discharge: SNF Within: within 24 hours
[2018-06-08 21:32] LABS: HEMATOCRIT 33.9 % (37.9-51.0); HEMOGLOBIN 11.5 g/dL (13.5-17.0); MEAN CORPUSCULAR HEMOGLOBIN 30.7 pg (27.0-33.4); MEAN CORPUSCULAR HGB CONC 33.9 g/dL (32.0-36.0); MEAN CORPUSCULAR VOLUME 91 fl (80-97); PLATELET COUNT 316 10^3/uL (150-450); RED BLOOD COUNT 3.74 10^6/uL (4.35-5.55); RED CELL DISTRIBUTION WIDTH 14.8 % (11.5-14.0); WHITE BLOOD COUNT 6.1 10^3/uL (4.0-10.5)
[2018-06-08 21:44] LABS: ANION GAP 8 (5-19); BLOOD UREA NITROGEN 10 mg/dL (7-20); CALCIUM 8.6 mg/dL (8.4-10.2); CARBON DIOXIDE 24 mmol/L (22-30); CHLORIDE 101 mmol/L (98-107); GLUCOSE 94 mg/dL (75-110); POTASSIUM 3.8 mmol/L (3.6-5.0); SODIUM 133.3 mmol/L (137-145)
[2018-06-08] MEDS: HEPARIN SOD (PORCINE) 5,000 UNIT/ML 1 ML SYRINGE SUBCUT SCH (21:55)
[2018-06-08] MEDS: NORMAL SALINE 1000 ML 1,000 ML IV PRN (21:56)
[2018-06-08] MEDS ORDERED: ZIPRASIDONE MESYLATE INJ/PF 20 MG SDV IM ONE (23:35)
[2018-06-08] MEDS ORDERED: ZIPRASIDONE HCL 20 MG CAPSULE PO ONE (23:52)
[2018-06-09 01:36] LABS: APPEARANCE,URINE CLEAR; BILIRUBIN,URINE NEGATIVE (NEGATIVE); COLOR,URINE YELLOW; GLUCOSE, URINE NEGATIVE (NEGATIVE); KETONES,URINE NEGATIVE (NEGATIVE); LEUKOCYTE ESTERASE,URINE NEGATIVE (NEGATIVE); NITRITE,URINE NEGATIVE (NEGATIVE); PROTEIN,URINE NEGATIVE (NEGATIVE); URINE SPECIFIC GRAVITY 1.012; UROBILINOGEN,URINE NEGATIVE mg/dL (<2.0)
[2018-06-09] MEDS: HEPARIN SOD (PORCINE) 5,000 UNIT/ML 1 ML SYRINGE SUBCUT SCH ×2 (07:27→13:10)
[2018-06-09] MEDS: NICOTINE 14 MG/24 HR PATCH.TD24 TD SCH (10:12)
[2018-06-09] MEDS: LORAZEPAM INJ 2 MG/1 ML VIAL IV PRN ×2 (10:54→18:42)
[2018-06-09] MEDS: NORMAL SALINE 1000 ML 1,000 ML IV PRN ×2 (10:55→13:44)
--- NOTE | 2018-06-09 18:32 | PDOC PROGRESS REPORT ---
Subjective Progress Note for:: 06/09/18 Subjective:: JOCELYN COSBY is a 68 year old male with medical history of lung cancer, unknown type, dementia, COPD. Comes to the emergency department complaining of generalized weakness and total body pain. The patient was discharged from our facility on 05-21-18 with a diagnosis of cavitary pneumonia in the left upper lobe and COPD exacerbation. The patient went back home but apparently his cannot take care of him as per my discussion with the ED attending. Unfortunately when I arrived to see the patient was gone. In the emergency patient was made DNR, as per the is unable to take care of the patient she does cause with attending in the emergency to make him hospice and transferred to a [facility] facility. Hospice was in the emergency department and were working to transfer to [place] but beds were not available. No acute events overnight patient is waiting to be transferred to home hospice most likely tomorrow. Reason For Visit: GENERALIZED WEAKNESS Physical Exam Vital Signs: Temp Pulse Resp BP Pulse Ox 98.2 F 73 16 98/71 L 100 06/09/18 12:32 06/09/18 12:32 06/09/18 12:32 06/09/18 13:50 06/09/18 12:32 Intake & Output 06/08/18 06/09/18 06/10/18 06:59 06:59 06:59 Intake Total 222 1185 Output Total 250 Balance -28 1185 Weight 56.9 kg Results Laboratory Results: 06/08/18 21:21 06/08/18 21:21 06/08/18 06/08/18 06/09/18 21:21 21:21 01:10 WBC 6.1 RBC 3.74 L Hgb 11.5 L Hct 33.9 L MCV 91 MCH 30.7 MCHC 33.9 RDW 14.8 H Plt Count 316 Sodium 133.3 L Potassium 3.8 Chloride 101 Carbon Dioxide 24 Anion Gap 8 BUN 10 Creatinine 0.54 Est GFR ( Amer) > 60 Est GFR (Non-Af Amer) > 60 Glucose 94 Calcium 8.6 Urine Color YELLOW Urine Appearance CLEAR Urine pH 6.0 Ur Specific Fielding 1.012 Urine Protein NEGATIVE Urine Glucose (UA) NEGATIVE Urine Ketones NEGATIVE Urine Blood NEGATIVE Urine Nitrite NEGATIVE Ur Leukocyte Esterase NEGATIVE Urine WBC (Auto) 1 Urine RBC (Auto) 0 Assessment & Plan - Diagnosis (1) Generalized weakness Is this a current diagnosis for this admission?: Yes Plan: Generalized weakness and body pain. Most likely due to underlying lung malignancy. Supportive measures. Patient is hospice and waiting to be transferred to home hospice. (2) Lung cancer Qualifiers: Laterality: unspecified laterality Lung location: unspecified part of lung Qualified Code(s): C34.90 - Malignant neoplasm of unspecified part of unspecified bronchus or lung Is this a current diagnosis for this admission?: Yes Plan: Left upper lung cancer, unknown type as the biopsies were taken in [place] and that information has been requested. Patient had a PET scan done about 5 months ago with no apparent active disease however a CTA of the chest was on which shows left upper lobe spiculated mass. Patient is CIV[employer] ENG[employer]ING DIRECT[employer] and pending transfer to home hospice. (3) Dementia Qualifiers: Dementia type: Alzheimer's disease Dementia behavioral disturbance: without behavioral disturbance Is this a current diagnosis for this admission?: Yes Plan: Supportive cares. Fall, aspiration precaution. (4) Dehydration Is this a current diagnosis for this admission?: Yes Plan: Volume resuscitation. Guided by volume status. Continue NS (5) Cachexia Is this a current diagnosis for this admission?: Yes Plan: To underlying malignancy. Continue supportive measures. Dietary consult.
[2018-06-09] MEDS ORDERED: ZIPRASIDONE MESYLATE INJ/PF 20 MG SDV IM ONE (20:15)
[2018-06-10] MEDS: LORAZEPAM INJ 2 MG/1 ML VIAL IV PRN ×2 (00:58→09:13)
[2018-06-10] MEDS: HEPARIN SOD (PORCINE) 5,000 UNIT/ML 1 ML SYRINGE SUBCUT SCH ×3 (01:01→13:00)
[2018-06-10 05:08] LABS: ABSOLUTE EOSINOPHILS # (AUTO) 0.1 10^3/uL (0.0-0.6); ABSOLUTE LYMPHOCYTES (AUTO) 0.9 10^3/uL (0.5-4.7); ABSOLUTE MONOCYTES (AUTO) 0.4 10^3/uL (0.1-1.4); ABSOLUTE NEUT (AUTO) 3.9 10^3/uL (1.7-8.2); BASOPHILS % (AUTO) 0.4 % (0-2); EOSINOPHILS % (AUTO) 1.3 % (0-6); HEMATOCRIT 31.6 % (37.9-51.0); HEMOGLOBIN 10.7 g/dL (13.5-17.0); LYMPHOCYTES % (AUTO) 17.8 % (13-45); MEAN CORPUSCULAR HEMOGLOBIN 30.9 pg (27.0-33.4); MEAN CORPUSCULAR HGB CONC 33.7 g/dL (32.0-36.0); MEAN CORPUSCULAR VOLUME 92 fl (80-97); PLATELET COUNT 336 10^3/uL (150-450); RED BLOOD COUNT 3.46 10^6/uL (4.35-5.55); RED CELL DISTRIBUTION WIDTH 14.8 % (11.5-14.0); SEGMENTED NEUTROPHILS % (AUTO) 73.5 % (42-78); TOTAL CELLS COUNTED % (AUTO) 100 %; WHITE BLOOD COUNT 5.3 10^3/uL (4.0-10.5)
[2018-06-10 05:26] LABS: ALANINE AMINOTRANSFERASE 30 U/L (21-72); ALBUMIN 2.4 g/dL (3.5-5.0); ALKALINE PHOSPHATASE 153 U/L (38-126); ANION GAP 6 (5-19); ASPARTATE AMINO TRANSFERASE 27 U/L (17-59); BILIRUBIN,DIRECT 0.3 mg/dL (0.0-0.4); BILIRUBIN,TOTAL 0.5 mg/dL (0.2-1.3); BLOOD UREA NITROGEN 9 mg/dL (7-20); CALCIUM 8.4 mg/dL (8.4-10.2); CARBON DIOXIDE 26 mmol/L (22-30); CHLORIDE 105 mmol/L (98-107); GLUCOSE 89 mg/dL (75-110); POTASSIUM 3.9 mmol/L (3.6-5.0); SODIUM 137.3 mmol/L (137-145); TOTAL PROTEIN 5.1 g/dL (6.3-8.2)
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
[2018-06-10] MEDS: NORMAL SALINE 1000 ML 1,000 ML IV PRN (09:13)
[2018-06-10] MEDS: NICOTINE 14 MG/24 HR PATCH.TD24 TD SCH (09:13)
--- NOTE | 2018-06-10 13:05 | PDOC TRANSFER SUMMARY ---
General Admission Date/PCP: 06/08/18 20:24 MARVIN ROMAN MD Resuscitation Status: Do Not Resuscitate - Transfer Medications Home Medications: Albuterol Sulfate [Ventolin HFA MDI 18 GM] 1 puff IH Q6HP PRN 06/09/18 Fluticasone/Umeclidin/Vilanter [Trelegy 100-62.5-25 Mcg Ellipta 14 Dose/Dpi] 1 puff IH DAILY 06/09/18 Ipratropium [place] [Atrovent Hfa Inhalation Aerosol 12.9 gm Mdi] 1 puff IH Q8 06/09/18 Levalbuterol Tartrate [Levalbuterol Tartrate Hfa] 2 puff IH Q8 06/09/18 Levothyroxine Sodium [Synthroid] 112 mcg PO Q6AM 06/09/18 Mirtazapine [Remeron 15 mg Tablet] 15 mg PO QHS 06/09/18 Montelukast Sodium [Singulair 10 mg Tablet] 10 mg PO DAILY 06/09/18 Transfer Medications: Current Medications Acetaminophen (Tylenol 325 Mg Tablet) 650 mg PO Q4HP PRN PRN Reason: FOR PAIN OR TEMP Stop: 07/08/18 20:03 Al Hydrox/Mg Hydrox/Simethicone (Maalox Plus Susp 30 Udcup) 30 ml PO Q6HP PRN PRN Reason: HEARTBURN Stop: 07/08/18 20:03 Albuterol (Ventolin 0.083% Neb 2.5 Mg/3 Ml Ampul) 2.5 mg NEB RTQ3HP PRN PRN Reason: SHORTNESS OF BREATH Stop: 07/08/18 20:03 Last Admin: 06/08/18 23:34 Dose: 2.5 mg Heparin Sodium (Porcine) (Heparin Inj 5,000 Units/Ml 1 Ml Syringe) 5,000 unit SUBCUT Q8 HAYLEY Stop: 07/08/18 21:59 Last Admin: 06/10/18 13:00 Dose: Not Given Sodium Chloride (Nacl 0.9% 1000 Ml Iv Soln) 1,000 mls @ 75 mls/hr IV CONTINUOUS PRN PRN Reason: THIS MED IS NOT "PRN" Stop: 07/08/18 20:03 Last Admin: 06/10/18 09:13 Dose: 75 mls/hr Influenza Virus Vaccine Quadrival (Fluarix Adlt Quad Vac 0.5 Ml Syr) 0.5 ml IM .DISCHARGE PRN PRN Reason: THIS MED IS NOT "PRN" Stop: 07/09/18 18:27 Lorazepam (Ativan Inj 2 Mg/1 Ml Vial) 0.5 mg IV Q6HP PRN PRN Reason: ANXIETY Stop: 06/16/18 10:30 Last Admin: 06/10/18 09:13 Dose: 0.5 mg Morphine Sulfate (Morphine 10 Mg/Ml Inj) 1 mg IV Q6HP PRN PRN Reason: SEVERE PAIN Stop: 06/15/18 20:13 Nicotine (Nicoderm 14 Mg/24 Hr Transdermal Patch) 1 each TD DAILY HAYLEY Stop: 07/09/18 09:59 Last Admin: 06/10/18 09:13 Dose: 1 each Promethazine HCl (Phenergan 25 Mg Tablet) 25 mg PO Q4HP PRN PRN Reason: FOR NAUSEA/VOMITING Stop: 07/08/18 20:03 Promethazine HCl (Phenergan Inj 25 Mg/1 Ml Vial) 25 mg IV Q4HP PRN PRN Reason: FOR NAUSEA/VOMITING Stop: 07/08/18 20:03 - Allergies Allergies/Adverse Reactions: atorvastatin [From Lipitor] Allergy (Verified 03/30/16 18:35) gabapentin Allergy (Verified 03/30/16 18:35) pravastatin [From Pravachol] Allergy (Verified 03/30/16 18:35) pregabalin [From Lyrica] Allergy (Verified 03/30/16 18:35) Hospital Course Hospital Course: HPI: JOCELYN COSBY is a 68 year old male with medical history of lung cancer, dementia, and COPD who presented with generalized weakness and total body pain. The patient was discharged from our facility on 05-21-18 with a diagnosis of cavitary pneumonia in the left upper lobe and COPD exacerbation. The patient went back home but apparently his is unable to take care of him at home. Patient was made DNR in the ER after discussion with family, ER attending and admitting hospitalist. Plan was initially to send him to hospice from the ER but due to unavailability of hospice bed, he was eventually admitted. Called Dr. Wilde, patient's oncologist and discussed the case. She has also coordinated with the hospice team apparently. 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 She relays there is no feasible treatment options for patient at this time. Relayed and discussed with patient and and both expressed he does prefer to be DNR and be on hospice care. Physical Exam Vital Signs: Temp Pulse Resp BP Pulse Ox 98.3 F 73 14 94/60 L 94 06/10/18 07:21 06/10/18 09:01 06/10/18 09:01 06/10/18 07:21 06/10/18 09:01 Intake & Output 06/09/18 06/10/18 06/11/18 06:59 06:59 06:59 Intake Total 222 2385 Output Total 250 Balance -28 2385 Weight 125 lb 7.088 oz 125 lb 3.561 oz General appearance: PRESENT: no acute distress, thin, other - cachectic Head exam: PRESENT: atraumatic, normocephalic Eye exam: PRESENT: conjunctiva pink, EOMI, PERRLA. ABSENT: scleral icterus Ear exam: PRESENT: normal external ear exam Mouth exam: PRESENT: moist, tongue midline Neck exam: ABSENT: carotid bruit, JVD, lymphadenopathy, thyromegaly Respiratory exam: PRESENT: clear to auscultation jose alfreod, rhonchi - occasional rhonchi on the left lung warren. ABSENT: rales, wheezes Cardiovascular exam: PRESENT: RRR. ABSENT: diastolic murmur, rubs, systolic murmur Pulses: PRESENT: normal dorsalis pedis pul GI/Abdominal exam: PRESENT: normal bowel sounds, soft. ABSENT: distended, guarding, mass, organolmegaly, rebound, tenderness Rectal exam: PRESENT: deferred Neurological exam: PRESENT: alert, oriented to person, oriented to place, oriented to time Results Laboratory Results: 06/10/18 04:44 06/10/18 04:44 06/10/18 06/10/18 04:44 04:44 WBC 5.3 RBC 3.46 L Hgb 10.7 L Hct 31.6 L MCV 92 MCH 30.9 MCHC 33.7 RDW 14.8 H Plt Count 336 Seg Neutrophils % 73.5 Lymphocytes % 17.8 Monocytes % 7.0 Eosinophils % 1.3 Basophils % 0.4 Absolute Neutrophils 3.9 Absolute Lymphocytes 0.9 Absolute Monocytes 0.4 Absolute Eosinophils 0.1 Absolute Basophils 0.0 Sodium 137.3 Potassium 3.9 Chloride 105 Carbon Dioxide 26 Anion Gap 6 BUN 9 Creatinine 0.72 Est GFR ( Amer) > 60 Est GFR (Non-Af Amer) > 60 Glucose 89 Calcium 8.4 Total Bilirubin 0.5 AST 27 ALT 30 Alkaline Phosphatase 153 H Total Protein 5.1 L Albumin 2.4 L
[2018-06-10 16:24] VITALS: BP 106/66
== END 2018-06-10 17:18 ==
LOC: ER 15:48 → EH 20:24 → 4N 21:06
PROVIDERS: ADMIT Internal Medicine; ATTEND Internal Medicine
PROC: HZ31ZZZ Individual Counseling for Substance Abuse Treatment, Behavioral (ICD-10-PCS; principal; 2018-06-08)
DX: C34.12 Malignant neoplasm of upper lobe, left bronchus or lung (principal); R53.1 Weakness; G30.9 Alzheimer's disease, unspecified; F02.80 Dementia in other diseases classified elsewhere, unspecified severity, without behavioral disturbance, psychotic disturbance, mood disturbance, and anxiety; E86.0 Dehydration; R64 Cachexia; F17.210 Nicotine dependence, cigarettes, uncomplicated; Z66 Do not resuscitate; M79.10 Myalgia, unspecified site; M54.9 Dorsalgia, unspecified; J44.9 Chronic obstructive pulmonary disease, unspecified; I95.9 Hypotension, unspecified; R00.0 Tachycardia, unspecified; Z68.1 Body mass index [BMI] 19.9 or less, adult
CPT/HCPCS: 93005; 99406; 99285; 96361; 96374; 36415 ×2; 85025; 85027; 80048; 80053; 81001; 93010; 94640; G0378 ×4; J1644 ×3; J3010; J2060 ×2; J3486; J7030 ×3; J7120; A9270

== ENCOUNTER → 2018-06-30 | Outpatient (CLI) | payer MEDICARE ==
--- NOTE | 2018-06-30 13:06 | RADIOLOGY REPORT (SQ) ---
EXAM DESCRIPTION: CT CHEST WITHOUT COMPLETED DATE/TIME: 06/30/2018 12:34 pm REASON FOR STUDY: R91.1 SOLITARY PULMONARY NODULE R91.1 SOLITARY PULMONARY NODULE COMPARISON: PET-CT 05/05/2017, 09/07/2016, 04/29/2016, 02/26/2016 CT chest 05/16/2018, 01/06/2018, 01/21/2017, 01/26/2016 TECHNIQUE: CT scan performed of the chest without intravenous contrast. Images reviewed with lung, soft tissue and bone windows. Reconstructed coronal and sagittal MPR images reviewed. All images st ored on PACS. All CT scanners at this facility use dose modulation, iterative reconstruction, and/or weight based d osing when appropriate to reduce radiation dose to as low as reasonably achievable (ALARA). [facility]: Dose Right [facility]: CareDose [facility]: Dose Right [facility]: Teradose 4D [facility]: Smart Technologies RADIATION DOSE: CT Rad equipment meets quality standard of care and radiation dose reduction techniq ues were employed. CTDIvol: 6.1 mGy. DLP: 252 mGy-cm. mGy. LIMITATIONS: No technical limitations. FINDINGS: LUNGS AND PLEURA: Again, the left lung apex is near completely replaced by a thick walled irregular cavitary lesion with ill-defined margins. There has been further cavitation of the left cesar ng apex compared to 05/16/2018. Findings could represent old post radiation change with fibrosis/necr osis. Recurrent tumor or active infection could not be excluded. Right lung is hyperinflated and hyperlucent but clear. No pleural effusions. No pneumothorax. HILAR AND MEDIASTINAL STRUCTURES: No identified masses or abnormal nodes. No obvious aneurysm. HEART AND VASCULAR STRUCTURES: No aneurysm. No pericardial effusion. Minimal coronary artery calcif ications. UPPER ABDOMEN: No significant findings. Limited exam. THYROID AND OTHER SOFT TISSUES: No masses. No adenopathy. BONES: No significant finding. HARDWARE: None in the chest. OTHER: No other significant findings. IMPRESSION: Thick walled cavity left lung apex unchanged from 05/16/2018. This could represent post radiation change/ scarring in the left upper lobe. Recurrent tumor or active infection could not be excluded. TECHNICAL DOCUMENTATION: JOB ID: [id number] Quality ID # [id number]: Final reports with documentation of one or more dose reduction techniques (e.g., Au tomated exposure control, adjustment of the mA and/or kV according to patient size, use of iterative reconstruction technique) 2010 [employer]- All Rights Reserved Reading location - IP/workstation name: [email or web address]
== END ==
LOC: RAD 13:02
PROVIDERS: ATTEND Internal Medicine Critical Care Medicine
DX: R91.1 Solitary pulmonary nodule (principal)
CPT/HCPCS: 71250

== ENCOUNTER 2018-11-05 13:50 | Emergency (ER) | payer MEDICARE, OTHER ==
[2018-11-05] MEDS ORDERED: IPRATROPIUM/ALBUTEROL 0.5-2.5 MG/3 ML AMPUL NEB ONE (14:21)
--- NOTE | 2018-11-05 14:42 | ER Document Report ---
ED General - General Chief Complaint: Shortness Of Breath Stated Complaint: SHORTNESS OF BREATH Time Seen by Provider: 11/05/18 14:11 TRAVEL OUTSIDE OF THE [place] IN LAST 30 DAYS: No - HPI Notes: Patient is a 68-year-old male that presents to the emergency department for chief complaint of dyspnea. Patient is reportedly on hospice for lung cancer. He has a previous diagnosis of lung cancer and when he started to have more respiratory issues he declined any further biopsies or treatments. His prognosis currently is not known because he has not had extensive cancer workup however his hospice nurse states over the last month he has had a rheumatic functional decline in his mental status as well as respiratory status. He also has Alzheimer's disease. Patient experiences panic attacks frequently and does have medication at home for anxiety. He has been using albuterol inhaler multiple times daily per his hospice nurse. Today patient walked to the mailbox and upon his return was very dyspneic. Patient's called EMS for his increased work of breathing. Patient currently states he feels fine. He is denying any pain or dyspnea at this moment. Past Medical History: Lung CA, COPD Past Surgical History: Lung biopsy Social History: Reviewed in chart Family History: Reviewed and noncontributory for presenting illness Allergies: Reviewed, see documented allergy list. REVIEW OF SYSTEMS: CONSTITUTIONAL : No fever No chills No diaphoresis No recent illness EENT: No vision changes No congestion No sore throat CARDIOVASCULAR: No chest pain No palpitations RESPIRATORY: shortness of breath cough difficulty breathing GASTROINTESTINAL: No abdominal pain No nausea No vomiting No diarrhea GENITOURINARY: No dysuria No hematuria No difficulty urinating MUSCULOSKELETAL: No back pain No leg pain No arm pain SKIN: No rashes No lesions LYMPHATIC: No swollen, enlarged glands. NEUROLOGICAL: No lightheadedness No headache No weakness No paresthesias PSYCHIATRIC: No anxiety No depression PHYSICAL EXAMINATION: Vital signs reviewed, nursing noted reviewed. GENERAL: Well-appearing, well-nourished and in no acute distress. HEAD: Atraumatic, normocephalic. EYES: Eyes appear normal, extraocular movements intact, sclera anicteric, co njunctiva are normal. ENT: nares patent, oropharynx clear without exudates. Moist mucous membranes. NECK: Normal range of motion, supple without lymphadenopathy LUNGS: Breath sounds diminished with bilateral wheezing, mild increased work of breathing, no retractions HEART: Regular rate and rhythm without murmurs ABDOMEN: Soft, nontender, normoactive bowel sounds. No rebound, guarding, or ri gidity. No masses appreciated. EXTREMITIES: Nontender, good range of motion, no pitting or edema. NEUROLOGICAL: No focal neurological deficits. Moves all extremities spontaneously Motor and sensory grossly intact on exam. PSYCH: Normal mood, normal affect. SKIN: Warm, Dry, normal turgor, no rashes or lesions noted on exposed skin - Related Data Allergies/Adverse Reactions: atorvastatin [From Lipitor] Allergy (Verified 03/30/16 18:35) gabapentin Allergy (Verified 03/30/16 18:35) pravastatin [From Pravachol] Allergy (Verified 03/30/16 18:35) pregabalin [From Lyrica] Allergy (Verified 03/30/16 18:35) Past Medical History - Social History Smoking Status: Former Smoker Family History: Reviewed & Not Pertinent - Past Medical History Cardiac Medical History: Denies: Hx Coronary Artery Disease, Hx Heart Attack, Hx Hypertension Pulmonary Medical History: Reports: Hx COPD Denies: Hx Asthma, Hx Bronchitis, Hx Pneumonia Neurological Medical History: Denies: Hx Cerebrovascular Accident, Hx Seizures Endocrine Medical History: Reports: Hx Hypothyroidism Renal/ Medical History: Denies: Hx Peritoneal Dialysis Malignancy Medical History: Reports Hx Lung Cancer Musculoskeletal Medical History: Denies Hx Arthritis Psychiatric Medical History: Reports: Hx Dementia Denies: Hx Depression Traumatic Medical History: Reports: Hx Pneumothorax Past Surgical History: Reports: Other - Lung biopsy - Immunizations Hx Diphtheria, Pertussis, Tetanus Vaccination: No Physical Exam - Vital signs Vitals: Temp Resp 98.8 F 13 11/05/18 13:57 11/05/18 13:57 Course - Re-evaluation Re-evalutation: 11/05/18 14:42 Vitals reviewed. Nursing notes reviewed. Patient presented on BiPAP from EMS. Upon my arrival in the room he appeared to be breathing well and BiPAP was removed. Patient was placed on his 2 L nasal cannula oxygen which she has at home. His oxygen saturation on the 2 L is 100%. He had some mild tachypnea with no accessory muscle use or retractions. Patient does have bilateral wheezi ng and was given a DuoNeb after discussion with patient, his , and hospice nurse they have elected to. Do a workup in the emergency room but are not sure if they would want him to be admitted back in the hospital. Lab work and chest x-ray pending. 11/05/18 16:13 Patient's x-ray is unchanged from prior. His lab work shows slight elevation of troponin at 0.045. Patient and his agree that if he was having a heart attack he would not want any further management. He adamantly does not want to be admitted to the hospital. He currently states he feels fine and would like to go home. His hospice nurse is still present and will continue hospice care at home. He was told to return to the emergency room at any point time for further management if he desires. Laboratory 11/05/18 11/05/18 11/05/18 14:20 14:20 14:20 WBC 8.5 RBC 4.60 Hgb 16.0 Hct 45.5 MCV 99 H MCH 34.8 H MCHC 35.2 RDW 14.7 H Plt Count 199 Seg Neutrophils % 85.5 H Lymphocytes % 11.4 L Monocytes % 2.8 L Eosinophils % 0.1 Basophils % 0.2 Absolute Neutrophils 7.3 Absolute Lymphocytes 1.0 Absolute Monocytes 0.2 Absolute Eosinophils 0.0 Absolute Basophils 0.0 Sodium 138.4 Potassium 4.4 Chloride 100 Carbon Dioxide 27 Anion Gap 11 BUN 17 Creatinine 1.04 Est GFR ( Amer) > 60 Est GFR (Non-Af Amer) > 60 Glucose 139 H Calcium 9.9 Troponin I 0.045 Chest X-Ray 11/05/18 14:20 IMPRESSION: Chronic changes in the left apex. No acute cardiopulmonary findings. - Vital Signs Vital signs: Temp Pulse Resp BP Pulse Ox 98.4 F 17 120/90 H 100 11/05/18 15:00 11/05/18 15:00 11/05/18 14:03 11/05/18 15:00 - Laboratory Result Diagrams: 11/05/18 14:20 11/05/18 14:20 Laboratory results interpreted by me: 11/05/18 11/05/18 14:20 14:20 MCV 99 H MCH 34.8 H RDW 14.7 H Seg Neutrophils % 85.5 H Lymphocytes % 11.4 L Monocytes % 2.8 L Glucose 139 H - EKG Interpretation by Me Additional EKG results interpreted by me: 11/05/18 16:15 Interpreted by myself 1358: Normal sinus rhythm, rate 96, borderline left axis, left anterior fascicular block, no STEMI Discharge - Discharge Clinical Impression: Elevated troponin Dyspnea Qualifiers: Dyspnea type: unspecified Qualified Code(s): R06.00 - Dyspnea, unspecified Condition: Stable Disposition: HOME, SELF-CARE Instructions: Dyspnea, Nonspecific ([facility]) Additional Instructions: Please return to the emergency department if you have any worsening, or concern of your symptoms. Please return to the emergency department if you develop chest pain, difficulty breathing, severe abdominal pain, or ongoing vomiting. Please follow-up with your primary care physician in 2-3 days and any other karri mmended physicians. If prescribed, take all medications as directed. If you have any questions or concerns do not hesitate to return the emergency department for evaluation. Your troponin was elevated today. This is a test that looks at strain on your heart. It is possible that your symptoms were related to a heart attack. By leaving you understand the risks associated with having a heart attack including the possibility of . Please continue to follow with your hospice for further symptomatic management. Return to the emergency room at any point in time for further treatment if desired.
--- NOTE | 2018-11-05 14:56 | RADIOLOGY REPORT (SQ) ---
EXAM DESCRIPTION: CHEST SINGLE VIEW COMPLETED DATE/TIME: 11/05/2018 2:49 pm REASON FOR STUDY: SOB COMPARISON: 04/01/2016 EXAM PARAMETERS: NUMBER OF VIEWS: One view. TECHNIQUE: Single frontal radiographic view of the chest acquired. RADIATION DOSE: NA LIMITATIONS: None. FINDINGS: LUNGS AND PLEURA: Scarring in the left apex. Overall reduced volume the left lung. MEDIASTINUM AND HILAR STRUCTURES: No masses. Contour normal. HEART AND VASCULAR STRUCTURES: Heart normal in size. Normal vasculature. BONES: No acute findings. HARDWARE: None in the chest. OTHER: No other significant finding. IMPRESSION: Chronic changes in the left apex. No acute cardiopulmonary findings. TECHNICAL DOCUMENTATION: JOB ID: [id number] [employer]- All Rights Reserved Reading location - IP/workstation name: [email or web address]
[2018-11-05 15:06] LABS: ABSOLUTE MONOCYTES (AUTO) 0.2 10^3/uL (0.1-1.4); ABSOLUTE NEUT (AUTO) 7.3 10^3/uL (1.7-8.2); BASOPHILS % (AUTO) 0.2 % (0-2); EOSINOPHILS % (AUTO) 0.1 % (0-6); HEMATOCRIT 45.5 % (37.9-51.0); LYMPHOCYTES % (AUTO) 11.4 % (13-45); MEAN CORPUSCULAR HEMOGLOBIN 34.8 pg (27.0-33.4); MEAN CORPUSCULAR HGB CONC 35.2 g/dL (32.0-36.0); MEAN CORPUSCULAR VOLUME 99 fl (80-97); MONOCYTES % (AUTO) 2.8 % (3-13); PLATELET COUNT 199 10^3/uL (150-450); RED CELL DISTRIBUTION WIDTH 14.7 % (11.5-14.0); SEGMENTED NEUTROPHILS % (AUTO) 85.5 % (42-78); TOTAL CELLS COUNTED % (AUTO) 100 %; WHITE BLOOD COUNT 8.5 10^3/uL (4.0-10.5)
[2018-11-05 15:23] LABS: ANION GAP 11 (5-19); BLOOD UREA NITROGEN 17 mg/dL (7-20); CALCIUM 9.9 mg/dL (8.4-10.2); CARBON DIOXIDE 27 mmol/L (22-30); CHLORIDE 100 mmol/L (98-107); GLUCOSE 139 mg/dL (75-110); POTASSIUM 4.4 mmol/L (3.6-5.0); SODIUM 138.4 mmol/L (137-145)
[2018-11-05 16:40] VITALS: BP 127/82
--- NOTE | 2018-11-05 23:25 | EKG REPORT ---
SEVERITY:- ABNORMAL ECG - SINUS RHYTHM LEFT ANTERIOR FASCICULAR BLOCK BORDERLINE T ABNORMALITIES, ANT-LAT LEADS : Confirmed by: Bryon Gandara 05-Nov-2018 23:24:23
== END 2018-11-05 16:45 | disposition home or self-care (01) ==
LOC: ER 13:50
DX: J44.9 Chronic obstructive pulmonary disease, unspecified (principal); C34.90 Malignant neoplasm of unspecified part of unspecified bronchus or lung; I44.4 Left anterior fascicular block; R74.8 Abnormal levels of other serum enzymes; R06.02 Shortness of breath; R05 Cough; G30.9 Alzheimer's disease, unspecified; F02.80 Dementia in other diseases classified elsewhere, unspecified severity, without behavioral disturbance, psychotic disturbance, mood disturbance, and anxiety; F41.0 Panic disorder [episodic paroxysmal anxiety]; Z79.899 Other long term (current) drug therapy; Z88.8 Allergy status to other drugs, medicaments and biological substances; Z88.6 Allergy status to analgesic agent; Z87.891 Personal history of nicotine dependence; Z99.81 Dependence on supplemental oxygen
CPT/HCPCS: 93005; 94640; 99285; 36415; 85025; 80048; 84484; 71045; 93010; 94660; A9270; J7620

== ENCOUNTER 2018-11-06 20:06 | Emergency (ER) | payer MEDICARE ==
[2018-11-06 20:48] LABS: AMORPHOUS SEDIMENT,URINE TRACE /HPF; APPEARANCE,URINE SLIGHTLY-CLOUDY; BILIRUBIN,URINE NEGATIVE (NEGATIVE); COLOR,URINE YELLOW; GLUCOSE, URINE NEGATIVE (NEGATIVE); KETONES,URINE NEGATIVE (NEGATIVE); LEUKOCYTE ESTERASE,URINE NEGATIVE (NEGATIVE); NITRITE,URINE NEGATIVE (NEGATIVE); PROTEIN,URINE NEGATIVE (NEGATIVE); UROBILINOGEN,URINE NEGATIVE mg/dL (<2.0)
--- NOTE | 2018-11-06 21:17 | ER Document Report ---
ED General - General Chief Complaint: Altered Mental Status Stated Complaint: CONFUSION Time Seen by Provider: 11/06/18 21:03 Primary Care Provider: LIBERTAD SANDOVAL MD [Primary Care Provider] - Follow up as needed Mode of Arrival: Wheelchair Information source: Patient, Relative Notes: This is a 68-year-old man who is his and mother. He does have a history of lung cancer and is currently followed by hospice. He also has a history of panic attacks and he became anxious and left the house today. Ultimately, 911 was called and the patient was brought here. Currently, the patient is without complaints and is in no acute distress. TRAVEL OUTSIDE OF THE [place] IN LAST 30 DAYS: No - HPI Onset: Just prior to arrival Onset/Duration: Sudden Quality of pain: No pain Severity: None Pain Level: Denies Associated symptoms: denies: Chest pain, Fever, Shortness of breath Exacerbated by: Denies Relieved by: Denies Similar symptoms previously: No Recently seen / treated by doctor: No - Related Data Allergies/Adverse Reactions: atorvastatin [From Lipitor] Allergy (Verified 03/30/16 18:35) gabapentin Allergy (Verified 03/30/16 18:35) pravastatin [From Pravachol] Allergy (Verified 03/30/16 18:35) pregabalin [From Lyrica] Allergy (Verified 03/30/16 18:35) Past Medical History - General Information source: Patient, Relative - Social History Smoking Status: Current Every Day Smoker Cigarette use (# per day): No Chew tobacco use (# tins/day): No Frequency of alcohol use: None Drug Abuse: None Lives with: Spouse/Significant other Family History: Reviewed & Not Pertinent Patient has suicidal ideation: No Patient has homicidal ideation: No - Past Medical History Cardiac Medical History: Denies: Hx Coronary Artery Disease, Hx Heart Attack, Hx Hypertension Pulmonary Medical History: Reports: Hx COPD Denies: Hx Asthma, Hx Bronchitis, Hx Pneumonia Neurological Medical History: Denies: Hx Cerebrovascular Accident, Hx Seizures Endocrine Medical History: Reports: Hx Hypothyroidism Renal/ Medical History: Denies: Hx Peritoneal Dialysis Malignancy Medical History: Reports Hx Lung Cancer Musculoskeletal Medical History: Denies Hx Arthritis Psychiatric Medical History: Reports: Hx Dementia Denies: Hx Depression Traumatic Medical History: Reports: Hx Pneumothorax Past Surgical History: Reports: Other - Lung biopsy - Immunizations Hx Diphtheria, Pertussis, Tetanus Vaccination: No Review of Systems - Review of Systems Constitutional: denies: Chills, Fever EENT: No symptoms reported Cardiovascular: No symptoms reported Respiratory: No symptoms reported Gastrointestinal: No symptoms reported Genitourinary: No symptoms reported Male Genitourinary: No symptoms reported Musculoskeletal: No symptoms reported Skin: No symptoms reported Hematologic/Lymphatic: No symptoms reported Neurological/Psychological: No symptoms reported Physical Exam - Vital signs Vitals: Temp Pulse Resp BP Pulse Ox 98.0 F 102 H 20 117/77 97 11/06/18 20:25 11/06/18 20:25 11/06/18 20:25 11/06/18 20:25 11/06/18 20:25 Notes: Physical exam: GENERAL: Patient is alert and he is at his baseline (which is probably dementia), he is in no acute distress. His blood pressure is 116/89, pulse 91, O2 sat 96% on room air, as per Sophia rate 21. HEAD: Atraumatic, normocephalic. EYES: Pupils equal round and reactive to light, extraocular movements intact, sclera anicteric, conjunctiva are normal. ENT: TMs normal, nares patent, oropharynx clear without exudates. Moist mucous membranes. NECK: Normal range of motion, supple without obvious mass or JVD. LUNGS: Breath sounds clear to auscultation bilaterally and equal. No wheezes rales or rhonchi. HEART: Regular rate and rhythm without murmurs, rubs or gallops. ABDOMEN: Soft, normoactive bowel sounds. No tenderness to palpation. No gu arding, no rebound. No masses appreciated. EXTREMITIES: Normal range of motion, no pitting or edema. No clubbing or cyanosis. NEUROLOGICAL: Cranial nerves II through XII grossly intact. Normal speech, moving all extremities. PSYCH: Normal mood, normal affect. SKIN: Warm, Dry, normal turgor, no rashes or lesions noted. Course - Re-evaluation Re-evalutation: 11/07/18 03:36 Note: Patient is remained calm and asymptomatic while we observed him in the emergency room. Patient's has been with him the whole time. The patient's mother is been also in the room. They did not have the contact for the hospice nurse. We did contact the hospice service but they were not the ones who take care of the patient. After a period of observation, the patient wanted to go home and there was no clinical indication to keep him. Well after the patient was discharged, I did receive a call from his hospice nurse that said that the hospice physician wanted him and his evaluated and to maybe have them admitted for social reasons. This was the first I heard of this and I explained to the hospice nurse that it would be helpful for the hospice physician to call me beforehand with this information while the patient was still in the ER. In any event Adult Protective Services have been called (by the Residence Supervisor before the patient even came to the emergency room) and they will be investigating. As I mentioned above, at the time the patient was in the emergency room, the patient wanted to go home and there was no clinical indication to keep him. - Vital Signs Vital signs: Temp Pulse Resp BP Pulse Ox 98.0 F 96 19 114/76 93 11/06/18 20:25 11/06/18 20:49 11/06/18 22:01 11/06/18 22:00 11/06/18 22:01 Discharge - Discharge Clinical Impression: Lung cancer Condition: Stable Disposition: HOME, SELF-CARE Additional Instructions: As we discussed, Mr. Burns's oxygen level and vital signs are quite good right now. I do recommend you touch base with the hospice nurse to increase the number of times she comes: Call her tomorrow. Continue with the current medicines: Give them a little while longer to see how Mr. Burns adjusted the medicines. Referrals: LIBERTAD SANDOVAL MD [Primary Care Provider] - Follow up as needed
[2018-11-06 22:16] VITALS: BP 114/76
== END 2018-11-06 22:20 | disposition home or self-care (01) ==
LOC: ER 20:06
DX: C34.90 Malignant neoplasm of unspecified part of unspecified bronchus or lung (principal); R41.82 Altered mental status, unspecified; F17.200 Nicotine dependence, unspecified, uncomplicated; E03.9 Hypothyroidism, unspecified
CPT/HCPCS: 81001; 99284

== ENCOUNTER 2018-11-07 19:04 | Emergency (ER) | payer MEDICARE, MEDICAID ==
--- NOTE | 2018-11-07 19:26 | ER Document Report ---
ED General - General Stated Complaint: RESPIRATORY DISTRESS Time Seen by Provider: 11/07/18 19:10 Primary Care Provider: SIMONA ODOM MD [Primary Care Provider] - Follow up as needed Cannot obtain history due to: Dementia Notes: Patient is a 68-year-old male with a past medical history of COPD, current tobacco use, dementia, presents by EMS for the third time in 3 days due to concerns of confusion. History is reported by EMS that the patient was apparently standing at the end of the street, yelling at cars, getting agitated with the tank truck driver's of those vehicles. EMS was called as the family feels like they can no longer care for this patient at home. He is on hospice for a diagnosis of possible lung cancer although this diagnosis has not confirmed as patient has declined biopsy. TRAVEL OUTSIDE OF THE [place] IN LAST 30 DAYS: No - Related Data Allergies/Adverse Reactions: atorvastatin [From Lipitor] Allergy (Verified 03/30/16 18:35) gabapentin Allergy (Verified 03/30/16 18:35) pravastatin [From Pravachol] Allergy (Verified 03/30/16 18:35) pregabalin [From Lyrica] Allergy (Verified 03/30/16 18:35) Past Medical History - General Information source: Emergency Med Personnel, [facility] Records Cannot obtain history due to: Dementia - Social History Smoking Status: Current Every Day Smoker Frequency of alcohol use: None Drug Abuse: None Lives with: Family, Spouse/Significant other Family History: Reviewed & Not Pertinent - Past Medical History Cardiac Medical History: Denies: Hx Coronary Artery Disease, Hx Heart Attack, Hx Hypertension Pulmonary Medical History: Reports: Hx COPD Denies: Hx Asthma, Hx Bronchitis, Hx Pneumonia Neurological Medical History: Denies: Hx Cerebrovascular Accident, Hx Seizures Endocrine Medical History: Reports: Hx Hypothyroidism Renal/ Medical History: Denies: Hx Peritoneal Dialysis Malignancy Medical History: Reports Hx Lung Cancer Musculoskeletal Medical History: Denies Hx Arthritis Psychiatric Medical History: Reports: Hx Dementia Denies: Hx Depression Traumatic Medical History: Reports: Hx Pneumothorax Past Surgical History: Reports: Other - Lung biopsy - Immunizations Hx Diphtheria, Pertussis, Tetanus Vaccination: No Review of Systems - Review of Systems Notes: Constitutional: Negative for fever. HENT: Negative for sore throat. Eyes: Negative for visual changes. Cardiovascular: Negative for chest pain. Respiratory: Negative for shortness of breath. Gastrointestinal: Negative for abdominal pain, vomiting or diarrhea. Genitourinary: Negative for dysuria. Musculoskeletal: Negative for back pain. Skin: Negative for rash. Neurological: Negative for headaches, weakness or numbness. 10 point ROS negative except as marked above and in HPI. Physical Exam - Vital signs Vitals: Temp Pulse Resp BP Pulse Ox 99.1 F 90 20 119/67 95 11/07/18 19:25 11/07/18 19:25 11/07/18 19:25 11/07/18 19:25 11/07/18 19:25 Interpretation: Normal Notes: PHYSICAL EXAMINATION: GENERAL: Elderly somewhat disheveled male in no acute distress HEAD: Atraumatic, normocephalic. EYES: Pupils equal round and reactive to light, extraocular movements intact, sclera anicteric, conjunctiva are normal. ENT: nares patent, oropharynx clear without exudates. Moist mucous membranes. NECK: Normal range of motion, supple without lymphadenopathy LUNGS: Breath sounds clear to auscultation bilaterally and equal. No wheezes rales or rhonchi. HEART: Regular rate and rhythm without murmurs ABDOMEN: Soft, nontender, normoactive bowel sounds. No guarding, no rebound. No masses appreciated. EXTREMITIES: Normal range of motion, no pitting or edema. No cyanosis. NEUROLOGICAL: No focal neurological deficits. Moves all extremities spontaneously and on command. PSYCH: Alert, oriented only to person and city SKIN: Warm, Dry, normal turgor, no rashes or lesions noted. Course - Re-evaluation Re-evalutation: 11/07/18 19:20 Patient presents by EMS with concerns of shortness of breath but it appears that this is actually not the primary reason the patient is here in the emergency de partment. My documentation is late is a medially went to the patient's bedside to assess him, then I did called Dr. Simona Key the patient's attending hospice care physician to get clarification on what has been going on with this patient. This is the patient's third day in the emergency department in a row each time being for a picture of confusion or having difficulty managing the patient at home secondary to memory loss and agitation. Although there is a presumptive diagnosis of lung cancer this does not appear to be substantiated and Dr. Simona Key agrees that this diagnosis has not been verified. Patient had multiple PET scans throughout 2015 2016 none of which showed metastatic disease and actually showed shrinking of an apical nodule on the left upper lobe. It is quite questi onable the patient actually has lung cancer and likely does not actually meet hospice criteria per my conversation with Dr. Simona Key. The patient is not actually in respiratory distress at the time of my evaluation, has received magnesium, steroids and multiple rounds of nebulizers. I have discussed with sinusotomy have agreed to get a CT of the head with contrast to exclude any evidence of intercranial metastases which could be accounting for his deterioration in mental status and memory although it appears more likely to be a primary cognitive issue such as Alzheimer's dementia. Will also obtain basic lavatory. At this point the patient does not have capacity to make choices for himself. He does not know the year, the president, the month, had to be asked on 3 separate occasions to identify the state correctly. Apparently family has refused to come to the bedside. The patient was apparently flagging down vehicles in front of his house today, becoming very aggressive with the individuals driving his vehicles which is what prompted an EMS call. The family is requesting placement for this patient in a jail facility was they have previously resisted. Dr. Simona Key also does not feel this patient is safe to go home. 11/07/18 23:57 Workup is probably unremarkable. I did have a prolonged conversation with the and mother at the bedside who state that they cannot care for this patient at home. The patient is noted to be getting up, moving about, difficult to redirect. I have ordered 1 mg of risperidone to see if this improves his behaviors. I have discussed this case with the hospitalist Dr. Fox. We have reviewed the patient's presentation, labs and history and the patient does not currently meet inpatient criteria. I have placed a social work consult, patient will remain in the emergency department for assistance in placement. 11/08/18 03:21 Patient continues to get out of bed, not redirectable. Minimal to no effect with 1 mg of risperidone and 5 mg of olanzapine. At this point we will apply a lap belt for the patient's safety as he is high risk for falls, disturbing the department. Will also give an additional 5 mg of oral olanzapine. - Vital Signs Vital signs: Temp Pulse Resp BP Pulse Ox 97.3 F 90 17 130/87 H 97 11/08/18 01:22 11/07/18 19:25 11/08/18 00:08 11/08/18 01:22 11/08/18 01:22 - Laboratory Result Diagrams: 11/07/18 21:00 11/07/18 21:00 Laboratory results interpreted by me: 11/07/18 11/07/18 11/07/18 21:00 21:00 21:00 RBC 4.29 L MCV 98 H MCH 34.6 H RDW 14.5 H Seg Neutrophils % 90.8 H Lymphocytes % 6.8 L Monocytes % 2.2 L Sodium 135.4 L Glucose 130 H Urine Ketones TRACE H Urine Blood SMALL H - Diagnostic Test Radiology reviewed: Image reviewed, Reports reviewed Radiology results interpreted by me: 11/08/18 03:22 CT head: No acute intracranial bleed or mass 11/08/18 03:26 Chest x-ray: No acute infiltrate or pneumothorax Critical Care Note - Critical Care Note Total time excluding time spent on procedures (mins): 38 Comments: Critical care time spent on multiple reassessments of the patient, discussing with hospice nurse, conversations with Dr. Simona Odom , discussing with nursing staff, discussion with social workers, review of laboratories, review of imaging Discharge - Discharge Clinical Impression: Tobacco dependence due to cigarettes COPD (chronic obstructive pulmonary disease) Qualifiers: COPD type: unspecified COPD Qualified Code(s): J44.9 - Chronic obstructive pulmonary disease, unspecified Dementia Qualifiers: Dementia type: Alzheimer's disease Alzheimer's disease onset: early-onset Dementia behavioral disturbance: with behavioral disturbance Qualified Code(s): G30.0 - Alzheimer's disease with early onset; F02.81 - Dementia in other diseases classified elsewhere with behavioral disturbance Condition: Fair Referrals: SIMONA ODOM MD [Primary Care Provider] - Follow up as needed
--- NOTE | 2018-11-07 20:13 | RADIOLOGY REPORT (SQ) ---
XR CHEST 1 VIEW HISTORY: Shortness of breath. COMPARISON: 11/05/2018 FINDINGS: The heart size is normal. Chronic fibrotic changes of the left lung apex. No pleural effusion or pneumothorax. There are no acute bony findings. IMPRESSION: No evidence of acute cardiopulmonary disease.
--- NOTE | 2018-11-07 20:26 | RADIOLOGY REPORT (SQ) ---
CT HEAD WITHOUT THEN WITH IV CONTRAST HISTORY: Headache. COMPARISON: None. TECHNIQUE: CT scan of the brain without IV contrast. This exam was performed according to our departmental dose-optimization program, which includes automated exposure control, adjustment of the mA and/or kV according to patient size and/or use of iterative reconstruction technique. FINDINGS: Diffuse involutional changes are present. No evidence of acute infarction, intracranial hemorrhage, extra-axial fluid collection, or midline shift. There is partial opacification of the left maxillary sinus. No depressed skull fracture. IMPRESSION: No acute intracranial findings.
[2018-11-07 21:22] LABS: ABSOLUTE LYMPHOCYTES (AUTO) 0.6 10^3/uL (0.5-4.7); ABSOLUTE MONOCYTES (AUTO) 0.2 10^3/uL (0.1-1.4); ABSOLUTE NEUT (AUTO) 8.1 10^3/uL (1.7-8.2); BASOPHILS % (AUTO) 0.2 % (0-2); HEMATOCRIT 42.2 % (37.9-51.0); HEMOGLOBIN 14.8 g/dL (13.5-17.0); LYMPHOCYTES % (AUTO) 6.8 % (13-45); MEAN CORPUSCULAR HEMOGLOBIN 34.6 pg (27.0-33.4); MEAN CORPUSCULAR HGB CONC 35.2 g/dL (32.0-36.0); MEAN CORPUSCULAR VOLUME 98 fl (80-97); MONOCYTES % (AUTO) 2.2 % (3-13); PLATELET COUNT 210 10^3/uL (150-450); RED BLOOD COUNT 4.29 10^6/uL (4.35-5.55); RED CELL DISTRIBUTION WIDTH 14.5 % (11.5-14.0); SEGMENTED NEUTROPHILS % (AUTO) 90.8 % (42-78); TOTAL CELLS COUNTED % (AUTO) 100 %; WHITE BLOOD COUNT 8.9 10^3/uL (4.0-10.5)
[2018-11-07 21:41] LABS: ANION GAP 8 (5-19); BLOOD UREA NITROGEN 17 mg/dL (7-20); CALCIUM 9.6 mg/dL (8.4-10.2); CARBON DIOXIDE 25 mmol/L (22-30); CHLORIDE 102 mmol/L (98-107); GLUCOSE 130 mg/dL (75-110); POTASSIUM 4.2 mmol/L (3.6-5.0); SODIUM 135.4 mmol/L (137-145)
[2018-11-07 22:06] LABS: APPEARANCE,URINE CLEAR; BILIRUBIN,URINE NEGATIVE (NEGATIVE); COLOR,URINE YELLOW; GLUCOSE, URINE NEGATIVE (NEGATIVE); KETONES,URINE TRACE mg/dL (NEGATIVE); LEUKOCYTE ESTERASE,URINE NEGATIVE (NEGATIVE); NITRITE,URINE NEGATIVE (NEGATIVE); PROTEIN,URINE NEGATIVE (NEGATIVE); UROBILINOGEN,URINE NEGATIVE mg/dL (<2.0)
[2018-11-07] MEDS ORDERED: RISPERIDONE 1 MG TABLET PO ONE (23:47)
[2018-11-08] MEDS ORDERED: OLANZAPINE 5 MG TAB.RAPDIS PO ONE ×2 (01:15→03:21)
[2018-11-08] MEDS ORDERED: NICOTINE 14 MG/24 HR PATCH.TD24 TD ONE (12:00)
--- NOTE | 2018-11-08 12:03 | ER Document Report ---
Doctor's Note Notes: 11/08/18 12:02 68-year-old male with significant dementia is here with his and son who state they are unable to take care of the patient any longer. is adamantly refusing to bring the patient back home with her. States that he has been peeing all over the house, running out in the middle of traffic. Patient is currently on hospice and does have hospice nurses out to the house twice a week but states that this is not enough. Social work has been attempting to place the patient. There is no admittable diagnosis at this time. Awaiting social work input. 11/08/18 12:55 Patient's hospice nurse is now at the bedside and states that they are preparing to place the patient possibly at the [facility] which is a nursing facility for Alzheimer's dementia and which is in close proximity to where the patient lives. At this point patient will not be able to be transferred until Saturday. A list of home medications was requested from the hospice nurse. Patient will remain in the emergency department until Saturday.
[2018-11-08 14:56] LABS: ABSOLUTE LYMPHOCYTES (AUTO) 1.7 10^3/uL (0.5-4.7); ABSOLUTE MONOCYTES (AUTO) 0.6 10^3/uL (0.1-1.4); ABSOLUTE NEUT (AUTO) 6.4 10^3/uL (1.7-8.2); BASOPHILS % (AUTO) 0.2 % (0-2); EOSINOPHILS % (AUTO) 0.3 % (0-6); HEMATOCRIT 43.3 % (37.9-51.0); HEMOGLOBIN 15.1 g/dL (13.5-17.0); MEAN CORPUSCULAR HEMOGLOBIN 34.3 pg (27.0-33.4); MEAN CORPUSCULAR VOLUME 98 fl (80-97); MONOCYTES % (AUTO) 6.5 % (3-13); PLATELET COUNT 223 10^3/uL (150-450); RED BLOOD COUNT 4.41 10^6/uL (4.35-5.55); RED CELL DISTRIBUTION WIDTH 14.7 % (11.5-14.0); TOTAL CELLS COUNTED % (AUTO) 100 %; WHITE BLOOD COUNT 8.7 10^3/uL (4.0-10.5)
[2018-11-08 14:59] LABS: VENOUS BLOOD BASE EXCESS 0.1 mmol/L; VENOUS BLOOD PCO2 36.7 mmHg (35-63); VENOUS BLOOD PH 7.43 (7.30-7.42)
[2018-11-08 15:10] LABS: ANION GAP 11 (5-19); BLOOD UREA NITROGEN 16 mg/dL (7-20); CALCIUM 9.2 mg/dL (8.4-10.2); CARBON DIOXIDE 27 mmol/L (22-30); CHLORIDE 100 mmol/L (98-107); GLUCOSE 91 mg/dL (75-110); POTASSIUM 3.8 mmol/L (3.6-5.0); SODIUM 137.5 mmol/L (137-145)
[2018-11-08] MEDS ORDERED: LORAZEPAM INJ 2 MG/1 ML VIAL IM ONE (16:36)
[2018-11-08] MEDS: IPRATROPIUM BROMIDE HFA 17 MCG/PUFF 200 PUFF/12.9 GM MDI IH SCH (20:17)
[2018-11-08] MEDS: TRAZODONE HCL 50 MG TABLET PO SCH (22:03)
[2018-11-08] MEDS: MIRTAZAPINE 15 MG TABLET PO SCH (22:03)
[2018-11-09] MEDS: IPRATROPIUM BROMIDE HFA 17 MCG/PUFF 200 PUFF/12.9 GM MDI IH SCH ×3 (01:04→18:00)
[2018-11-09] MEDS ORDERED: LEVOTHYROXINE SODIUM 0.15 MG TABLET PO ONE (06:00)
--- NOTE | 2018-11-09 09:21 | ER Document Report ---
Doctor's Note Notes: 11/09/18 09:21 68-year-old male with significant dementia is here with his and son who state they are unable to take care of the patient any longer. is adamantly refusing to bring the patient back home with her. States that he has been peeing all over the house, running out in the middle of traffic. Patient is currently on hospice and does have hospice nurses out to the house twice a week but states that this is not enough. Social work has been attempting to place the patient. There is no admittable diagnosis at this time. Awaiting social work input. 11/08/18 12:55 Patient's hospice nurse is now at the bedside and states that they are preparing to place the patient possibly at the [facility] which is a nursing facility for Alzheimer's dementia and which is in close proximity to where the patient lives. At this point patient will not be able to be transferred until Saturday. A list of home medications was requested from the hospice nurse. Patient will remain in the emergency department until Saturday. 11/09/18 09:27 Patient is resting comfortably. Nursing reports that patient's agitation has i mproved. PHYSICAL EXAMINATION: Vital signs reviewed GENERAL: Well-appearing, well-nourished and in no acute distress. LUNGS: No respiratory distress Musculoskeletal: Normal range of motion NEUROLOGICAL: Normal speech, normal gait. PSYCH: Confused SKIN: Warm, Dry, normal turgor, no rashes or lesions noted.
[2018-11-09 10:48] LABS: ANION GAP 9 (5-19); BLOOD UREA NITROGEN 22 mg/dL (7-20); CALCIUM 9.6 mg/dL (8.4-10.2); CARBON DIOXIDE 27 mmol/L (22-30); CHLORIDE 103 mmol/L (98-107); GLUCOSE 75 mg/dL (75-110); POTASSIUM 3.8 mmol/L (3.6-5.0)
[2018-11-09] MEDS: TRAZODONE HCL 50 MG TABLET PO SCH (22:05)
[2018-11-09] MEDS: MIRTAZAPINE 15 MG TABLET PO SCH (22:06)
[2018-11-10] MEDS: IPRATROPIUM BROMIDE HFA 17 MCG/PUFF 200 PUFF/12.9 GM MDI IH SCH ×4 (00:25→23:56)
[2018-11-10] MEDS ORDERED: ZIPRASIDONE HCL 20 MG CAPSULE PO ONE (14:42)
--- NOTE | 2018-11-10 14:42 | ER Document Report ---
Doctor's Note Notes: 11/10/18 14:40 Rounds: Patient being evaluated for COPD and altered mental status, dementia. This afternoon, became hostile, throwing chairs and tables. Patient sounds confused when asked why he did so. Does not really offer her an excuse. Lab studies of all been essentially normal. Vital signs also been essentially normal. Patient apparently has underlying long-term dementia. Family will not take the patient. Patient appears to be medically stable for transfer or discharge. We will give him a dose of Geodon to see if we can settle him down. Mara Aguilar MD
[2018-11-10] MEDS ORDERED: TUBERCULIN,PURIF.PROT.DERIV. 5 TU/0.1 ML TEST 1 ML VIAL ID ONE (15:23)
--- NOTE | 2018-11-10 15:50 | PSYCHOLOGICAL NOTE ---
Addendum entered and electronically signed by LIAM LOPEZ LCSWA 11/13/18 16:53: Correction: add rispirdone 0.25mg every morning at 8am and afternoon at 4pm Addendum entered and electronically signed by LIAM LOPEZ LCSWA 11/13/18 16:41: Medication recommendations per [facility]'s contracted psychiatrist Dr Suma MELTON are as follows: Continue Depakote 500mg twice daily Decrease Buspar to 5mg in the morning and 10mg ever evening add rispirdone .025mg every morning at 8am and afternon at 4pm Original Note: Psych Note - Psych Note Date seen by psych provider: 11/10/18 Time seen by psych provider: 14:50 - Chart review at 1452. Psych Note: Reason for Consult: medication recommendations, dementia hx, agitation, aggression Contact Permissions: has been visiting Patient is a 68 year old male in the ED on a social hold after presenting to the ED 11/07/18 for the third time in 3 days for confusion and family expressing inability to manage patient at home. EMS told medical staff patient was at the end of the road, yelling at cars and getting agitated with the drivers of them. Home psychiatric medications are listed as Remeron 25MG QHS, Trazodone 100MG QHS and Klonopin 1MG BID. These have been continued while in the ED, with the exception of Klonopin. Geodon was listed on Oct as discontinued medication but it looks like it had not been administered. He is also on thyroid (mood regulation) medication at home as well as steroids/Prednisone 40MG QD (prolonged use can cause psychosis, agitation, aggression in the elderly with higher risk due to dementia). Head CT dated 11/07/18 completed secondary to confusion and headache had the following finding: diffuse involutional changes are present. Today he threw his bedside table, food tray and two chairs. He was subsequently put into physical restraints. Medical history is positive for COPD, dementia, thyroid issues, and current tobacco use. He is on hospitace for possible lung cancer which has not been verified for sure due to patient declining biopsy. Past problems include AMS, hyponatremia and pneumonia. Diagnosis: 799.59 (R41.9) Unspecified Neurocognitive Disorder by history Medication recommendations made by the psychiatric medical provider, Dr. Suma MD., includes: Discontinue Remeron 25MG at night for sleep/calming effect Discontinue Trazodone 100MG at night for sleep Discontinue Geodon (does not look like it had been administered, antipsychotics have been known to cause or exacerbate psychosis/aggression/agitation in patient's with dementia Add Depakote DR 500MG twice a day for mood stabilization Add Buspar 10MG twice a day for anxiety/calming effect/depression/sleep Impression/Plan: Symptoms of dementia and being in the ED (confinement, unfamil iar) are likely the reason for behaviors. Discharge Planning continuing to seek penitentiary placement. Placement requires patient to be stabilized so medications were requested. Consulted with Dr. Handy regarding the management and care of patient. ED Physician in agreement with recommendations.
[2018-11-10] MEDS: NICOTINE 21 MG/24 HR PATCH.TD24 TD SCH (16:57)
[2018-11-10] MEDS: DIVALPROEX SODIUM 500 MG TAB.SR.24H PO SCH (18:24)
[2018-11-10] MEDS: BUSPIRONE HCL 10 MG TABLET PO SCH (18:25)
[2018-11-11] MEDS: IPRATROPIUM BROMIDE HFA 17 MCG/PUFF 200 PUFF/12.9 GM MDI IH SCH ×2 (08:38→17:02)
--- NOTE | 2018-11-11 09:47 | ER Document Report ---
Doctor's Note Notes: 11/11/18 09:45 Rounds: Patient is currently a social hold because there is no place to send him. Family does not want to take him back. He is being evaluated for COPD and some degree of dementia. Vital signs are normal except for his blood pressure running in the 90s systolic. This morning he was 99/77 and 12. Afebrile. Patient was given 20 mg of Geodon p.o. yesterday and also was started on buspirone and Depakote yesterday evening. They might be causing his blood pressure to be a little bit low. His hemoglobin is 15.1 so he is not bleeding anywhere. Lab studies are all essentially normal. Patient appears to be medically stable for transfer or discharge. Mara Aguilar MD
[2018-11-11] MEDS: BUSPIRONE HCL 10 MG TABLET PO SCH ×2 (09:58→17:01)
[2018-11-11] MEDS: NICOTINE 21 MG/24 HR PATCH.TD24 TD SCH (09:58)
[2018-11-11] MEDS: DIVALPROEX SODIUM 500 MG TAB.SR.24H PO SCH ×2 (09:58→17:01)
[2018-11-12] MEDS: IPRATROPIUM BROMIDE HFA 17 MCG/PUFF 200 PUFF/12.9 GM MDI IH SCH ×3 (00:12→17:17)
[2018-11-12] MEDS: NICOTINE 21 MG/24 HR PATCH.TD24 TD SCH (09:28)
[2018-11-12] MEDS: BUSPIRONE HCL 10 MG TABLET PO SCH ×2 (09:29→17:16)
[2018-11-12] MEDS: DIVALPROEX SODIUM 500 MG TAB.SR.24H PO SCH ×2 (09:29→17:16)
--- NOTE | 2018-11-12 11:34 | ER Document Report ---
Doctor's Note Notes: 11/12/18 11:33 Patient seen and evaluated. His vital signs are stable. He was sleeping when I entered the room and during our conversation was in no acute distress. He has no current complaints. Plan for admission at alf facility for increasing dementia. Patient stable for transfer.
[2018-11-13] MEDS: IPRATROPIUM BROMIDE HFA 17 MCG/PUFF 200 PUFF/12.9 GM MDI IH SCH ×3 (00:14→19:21)
--- NOTE | 2018-11-13 10:01 | ER Document Report ---
Doctor's Note Notes: 11/13/18 10:01 Patient seen and evaluated. He is lying comfortably in the bed and in no acute distress. His is present at bedside. Patient has not had breakfast yet this morning but does seem more alert and eager to eat. He has not had any reported behavioral issues overnight. Patient is still stable for discharge or transfer
[2018-11-13] MEDS: NICOTINE 21 MG/24 HR PATCH.TD24 TD SCH (10:33)
[2018-11-13] MEDS: BUSPIRONE HCL 10 MG TABLET PO SCH ×2 (10:33→23:25)
[2018-11-13] MEDS: DIVALPROEX SODIUM 500 MG TAB.SR.24H PO SCH ×2 (10:33→18:00)
[2018-11-13] MEDS ORDERED: HALOPERIDOL LACTATE INJ 5 MG/1 ML VIAL IM ONE (16:57)
[2018-11-13] MEDS: RISPERIDONE 0.25 MG TABLET PO SCH ×2 (18:02→19:20)
[2018-11-14] MEDS: IPRATROPIUM BROMIDE HFA 17 MCG/PUFF 200 PUFF/12.9 GM MDI IH SCH ×4 (00:36→23:32)
[2018-11-14] MEDS ORDERED: KETOROLAC TROMETHAMINE INJ/PF 30 MG/1 ML SDV IM ONE (06:29)
[2018-11-14] MEDS: BUSPIRONE HCL 10 MG TABLET PO SCH ×2 (08:26→23:32)
[2018-11-14] MEDS: RISPERIDONE 0.25 MG TABLET PO SCH ×2 (09:35→17:53)
[2018-11-14] MEDS: DIVALPROEX SODIUM 500 MG TAB.SR.24H PO SCH ×2 (09:35→17:52)
[2018-11-14] MEDS: NICOTINE 21 MG/24 HR PATCH.TD24 TD SCH (09:53)
--- NOTE | 2018-11-14 18:07 | ER Document Report ---
Doctor's Note Notes: 11/14/18 18:07 Patient has been seen and evaluated. Find no acute issues at this time. Still awaiting disposition. Nothing further.
--- NOTE | 2018-11-14 20:57 | EKG REPORT ---
SEVERITY:- ABNORMAL ECG - SINUS RHYTHM LEFT ANTERIOR FASCICULAR BLOCK BORDERLINE T ABNORMALITIES, ANT-LAT LEADS BORDERLINE PROLONGED QT INTERVAL : Confirmed by: Zuly Goncalves MD 14-Nov-2018 20:57:07
[2018-11-15] MEDS: DIVALPROEX SODIUM 500 MG TAB.SR.24H PO SCH ×2 (09:46→18:40)
[2018-11-15] MEDS: NICOTINE 21 MG/24 HR PATCH.TD24 TD SCH (09:46)
[2018-11-15] MEDS: RISPERIDONE 0.25 MG TABLET PO SCH ×2 (09:47→18:35)
[2018-11-15] MEDS: BUSPIRONE HCL 10 MG TABLET PO SCH ×2 (09:47→22:45)
[2018-11-15] MEDS: IPRATROPIUM BROMIDE HFA 17 MCG/PUFF 200 PUFF/12.9 GM MDI IH SCH ×2 (09:48→18:36)
[2018-11-16] MEDS: IPRATROPIUM BROMIDE HFA 17 MCG/PUFF 200 PUFF/12.9 GM MDI IH SCH ×3 (00:05→18:41)
[2018-11-16] MEDS: BUSPIRONE HCL 10 MG TABLET PO SCH (09:37)
[2018-11-16] MEDS: RISPERIDONE 0.25 MG TABLET PO SCH ×2 (09:37→18:41)
[2018-11-16] MEDS: NICOTINE 21 MG/24 HR PATCH.TD24 TD SCH (09:37)
[2018-11-16] MEDS: DIVALPROEX SODIUM 500 MG TAB.SR.24H PO SCH ×2 (09:38→18:41)
--- NOTE | 2018-11-16 20:23 | ER Document Report ---
Doctor's Note Notes: 11/16/18 20:23 Patient is resting comfortably at this time. He has had no problems throughout the day today. He continues to wait on the social workers to find placement for him.
[2018-11-17] MEDS: IPRATROPIUM BROMIDE HFA 17 MCG/PUFF 200 PUFF/12.9 GM MDI IH SCH ×3 (00:02→16:34)
[2018-11-17] MEDS: BUSPIRONE HCL 10 MG TABLET PO SCH ×3 (00:02→21:51)
[2018-11-17] MEDS: RISPERIDONE 0.25 MG TABLET PO SCH ×2 (09:34→17:10)
[2018-11-17] MEDS: DIVALPROEX SODIUM 500 MG TAB.SR.24H PO SCH ×2 (09:35→17:10)
[2018-11-17] MEDS: NICOTINE 21 MG/24 HR PATCH.TD24 TD SCH (09:39)
--- NOTE | 2018-11-17 20:23 | ER Document Report ---
Doctor's Note Notes: 11/17/18 20:22 Social note. No change in patient's condition. Vital signs remained stable. Awaiting placement. No apparent prospects insight at this time. Mara Aguilar MD
[2018-11-18] MEDS ORDERED: DIPHENHYDRAMINE HCL 50 MG/ML VIAL IM ONE (00:19)
[2018-11-18] MEDS ORDERED: LORAZEPAM INJ 2 MG/1 ML VIAL IM ONE (00:19)
[2018-11-18] MEDS ORDERED: HALOPERIDOL LACTATE INJ 5 MG/1 ML VIAL IM ONE ×2 (00:19→22:12)
[2018-11-18] MEDS: IPRATROPIUM BROMIDE HFA 17 MCG/PUFF 200 PUFF/12.9 GM MDI IH SCH ×3 (01:12→18:30)
[2018-11-18] MEDS: BUSPIRONE HCL 10 MG TABLET PO SCH ×2 (08:48→22:00)
--- NOTE | 2018-11-18 10:18 | ER Document Report ---
Doctor's Note Notes: 11/18/18 10:18 Rounds: Chart reviewed and patient sleeping so not interrupted. No change in condition. Vital signs are all normal. Patient is awaiting placement. Mara Aguilar MD
[2018-11-18] MEDS: NICOTINE 21 MG/24 HR PATCH.TD24 TD SCH (12:33)
[2018-11-18] MEDS: DIVALPROEX SODIUM 500 MG TAB.SR.24H PO SCH ×2 (12:33→18:29)
[2018-11-18] MEDS: RISPERIDONE 0.25 MG TABLET PO SCH ×2 (12:33→18:29)
[2018-11-19] MEDS: IPRATROPIUM BROMIDE HFA 17 MCG/PUFF 200 PUFF/12.9 GM MDI IH SCH ×3 (03:13→17:40)
[2018-11-19] MEDS: BUSPIRONE HCL 10 MG TABLET PO SCH ×2 (09:46→23:00)
[2018-11-19] MEDS: DIVALPROEX SODIUM 500 MG TAB.SR.24H PO SCH ×2 (09:46→17:42)
[2018-11-19] MEDS: NICOTINE 21 MG/24 HR PATCH.TD24 TD SCH (10:13)
[2018-11-19] MEDS: RISPERIDONE 0.25 MG TABLET PO SCH ×2 (10:14→17:43)
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
[2018-11-20] MEDS: IPRATROPIUM BROMIDE HFA 17 MCG/PUFF 200 PUFF/12.9 GM MDI IH SCH ×3 (03:08→17:58)
[2018-11-20] MEDS: BUSPIRONE HCL 10 MG TABLET PO SCH ×2 (07:48→22:53)
[2018-11-20] MEDS: RISPERIDONE 0.25 MG TABLET PO SCH ×2 (09:47→18:23)
[2018-11-20] MEDS: DIVALPROEX SODIUM 500 MG TAB.SR.24H PO SCH ×2 (09:47→18:23)
[2018-11-20] MEDS: NICOTINE 21 MG/24 HR PATCH.TD24 TD SCH (09:47)
--- NOTE | 2018-11-20 09:58 | ER Document Report ---
Doctor's Note Notes: 11/20/18 09:58 As the rounding physician this AM, I assessed the patient's labs, vitals, and records. No concerning findings this morning. Patient denies any acute complaints. Patient is cleared for disposition by social work. Was informed that social work has found placement for the patient. Likely patient will be transferred today or tomorrow. PHYSICAL EXAMINATION: GENERAL: Well-appearing, well-nourished and in no acute distress. HEAD: Atraumatic, normocephalic. EYES: Pupils equal round extraocular movements intact, conjunctiva are normal. ENT: Nares patent NECK: Normal range of motion LUNGS: No respiratory distress Musculoskeletal: Normal range of motion NEUROLOGICAL: AAO x1 PSYCH: Confused SKIN: Warm, Dry, normal turgor, no rashes or lesions noted. 11/20/18 17:50
[2018-11-20] MEDS ORDERED: ACETAMINOPHEN 325 MG TABLET ONE (11:47)
[2018-11-21] MEDS: IPRATROPIUM BROMIDE HFA 17 MCG/PUFF 200 PUFF/12.9 GM MDI IH SCH ×3 (00:20→16:46)
[2018-11-21] MEDS: BUSPIRONE HCL 10 MG TABLET PO SCH ×2 (08:01→23:30)
--- NOTE | 2018-11-21 09:54 | ER Document Report ---
Doctor's Note Notes: 11/21/18 09:53 Rounds: Chart reviewed. Patient sleeping soundly. Patient was supposed to be leaving today to move to a long-term care facility. However, there is apparently a problem at the receiving facility and they cannot take any patients until Saturday, so this patient is going to be here until Saturday, at least. Vital signs remained stable. No new labs to review. Patient appears to be medically stable for transfer or discharge. Mara Aguilar MD
[2018-11-21] MEDS: RISPERIDONE 0.25 MG TABLET PO SCH ×2 (10:16→18:32)
[2018-11-21] MEDS: NICOTINE 21 MG/24 HR PATCH.TD24 TD SCH ×2 (10:17→12:28)
[2018-11-21] MEDS: DIVALPROEX SODIUM 500 MG TAB.SR.24H PO SCH ×2 (10:17→18:32)
[2018-11-22] MEDS: IPRATROPIUM BROMIDE HFA 17 MCG/PUFF 200 PUFF/12.9 GM MDI IH SCH ×3 (00:21→18:11)
[2018-11-22] MEDS: RISPERIDONE 0.25 MG TABLET PO SCH ×2 (09:35→18:19)
[2018-11-22] MEDS: BUSPIRONE HCL 10 MG TABLET PO SCH (09:35)
[2018-11-22] MEDS: NICOTINE 21 MG/24 HR PATCH.TD24 TD SCH (09:35)
[2018-11-22] MEDS: DIVALPROEX SODIUM 500 MG TAB.SR.24H PO SCH ×2 (09:36→18:19)
[2018-11-23] MEDS ORDERED: BUSPIRONE HCL 10 MG TABLET ONE (00:15)
[2018-11-23] MEDS: BUSPIRONE HCL 10 MG TABLET PO SCH ×4 (00:21→23:32)
[2018-11-23] MEDS: IPRATROPIUM BROMIDE HFA 17 MCG/PUFF 200 PUFF/12.9 GM MDI IH SCH ×4 (00:22→23:56)
[2018-11-23] MEDS ORDERED: IPRATROPIUM BROMIDE HFA 17 MCG/PUFF 200 PUFF/12.9 GM MDI IH SCH (09:00)
[2018-11-23] MEDS ORDERED: NICOTINE 21 MG/24 HR PATCH.TD24 TD SCH (10:00)
[2018-11-23] MEDS ORDERED: BUSPIRONE HCL 10 MG TABLET PO SCH ×2 (10:00→22:00)
[2018-11-23] MEDS ORDERED: RISPERIDONE 0.25 MG TABLET PO SCH (10:00)
[2018-11-23] MEDS ORDERED: DIVALPROEX SODIUM 500 MG TAB.SR.24H PO SCH (10:00)
--- NOTE | 2018-11-23 10:38 | ER Document Report ---
Doctor's Note Notes: 11/23/18 10:32 Social Rounds: Patient continues to await permanent placement in a long-term care facility. He has been in this emergency department since November 07. Has dementia. Patient has no complaints at this time. His blood pressure was 94/67 yesterday morning and it has not been rechecked yet. I have requested a repeat blood pressure. Patient appears to be medically stable for transfer or discharge. Mara Aguilar MD 11/23/18 19:39 Nurse brought to my attention that the patient's blood pressure is been running somewhat low in the 80s and 90s. Is also less active. Has not had any urine output today. I ordered a liter of saline bolus and let me know what the blood pressure is then. Mara Aguilar MD 11/24/18 11:12 I called nurse regarding patient about 11:00 pm last night. BP had come up to over 100 systolic Patient was ambulatory without difficulty. Labs ordered for this am. Mara Aguilar MD
[2018-11-23] MEDS: DIVALPROEX SODIUM 500 MG TAB.SR.24H PO SCH ×2 (11:36→23:57)
[2018-11-23] MEDS: NICOTINE 21 MG/24 HR PATCH.TD24 TD SCH (11:37)
[2018-11-23] MEDS: RISPERIDONE 0.25 MG TABLET PO SCH ×2 (12:53→23:57)
[2018-11-23] MEDS ORDERED: NORMAL SALINE 1000 ML 1,000 ML IV ONE (21:00)
[2018-11-24] MEDS: IPRATROPIUM BROMIDE HFA 17 MCG/PUFF 200 PUFF/12.9 GM MDI IH SCH ×3 (04:42→18:51)
[2018-11-24 06:24] LABS: APPEARANCE,URINE SLIGHTLY-CLOUDY; BILIRUBIN,URINE SMALL (NEGATIVE); GLUCOSE, URINE NEGATIVE (NEGATIVE); KETONES,URINE 20 mg/dL (NEGATIVE); LEUKOCYTE ESTERASE,URINE NEGATIVE (NEGATIVE); NITRITE,URINE NEGATIVE (NEGATIVE); PROTEIN,URINE 30 mg/dL (NEGATIVE); URINE SPECIFIC GRAVITY 1.031
[2018-11-24 06:25] LABS: COLOR,URINE DARK YELLOW
--- NOTE | 2018-11-24 08:45 | ER Document Report ---
ED Medical Screen (RME) - General Chief Complaint: Breathing Difficulty Stated Complaint: RESPIRATORY DISTRESS Time Seen by Provider: 11/07/18 19:10 Primary Care Provider: LIBERTAD SANDOVAL MD [Primary Care Provider] - Follow up as needed Notes: Rounded on patient this morning. Apparently had an episode of hypotension last night. Now resolved. Sitting up and eating. Labs sent last night are unremarkable. Waiting for placement. No acute interventions at this time are required. TRAVEL OUTSIDE OF THE [place] IN LAST 30 DAYS: No - Related Data Allergies/Adverse Reactions: atorvastatin [From Lipitor] Allergy (Verified 11/08/18 13:02) gabapentin Allergy (Verified 11/08/18 13:02) pravastatin [From Pravachol] Allergy (Verified 11/08/18 13:02) pregabalin [From Lyrica] Allergy (Verified 11/08/18 13:02) Past Medical History - Social History Frequency of alcohol use: None Drug Abuse: None - Past Medical History Cardiac Medical History: Denies: Hx Coronary Artery Disease, Hx Heart Attack, Hx Hypertension Pulmonary Medical History: Reports: Hx COPD Denies: Hx Asthma, Hx Bronchitis, Hx Pneumonia Neurological Medical History: Denies: Hx Cerebrovascular Accident, Hx Seizures Endocrine Medical History: Reports: Hx Hypothyroidism Renal/ Medical History: Denies: Hx Peritoneal Dialysis Malignancy Medical History: Reports Hx Lung Cancer Musculoskeltal Medical History: Denies Hx Arthritis Psychiatric Medical History: Reports: Hx Dementia Denies: Hx Depression Traumatic Medical History: Reports: Hx Pneumothorax Past Surgical History: Reports: Other - Lung biopsy - Immunizations Hx Diphtheria, Pertussis, Tetanus Vaccination: No Physical Exam - Vital signs Vitals: Temp Pulse Resp BP Pulse Ox 99.1 F 90 20 119/67 95 11/07/18 19:25 11/07/18 19:25 11/07/18 19:25 11/07/18 19:25 11/07/18 19:25 Course - Vital Signs Vital signs: Temp Pulse Resp BP Pulse Ox 97.2 F 80 20 94/50 L 96 11/24/18 06:00 11/24/18 06:00 11/24/18 06:00 11/24/18 06:00 11/24/18 06:00 - Laboratory Result Diagrams: 11/08/18 14:30 11/09/18 10:20 Laboratory results interpreted by me: 11/07/18 11/07/18 11/07/18 21:00 21:00 21:00 RBC 4.29 L MCV 98 H MCH 34.6 H RDW 14.5 H Seg Neutrophils % 90.8 H Lymphocytes % 6.8 L Monocytes % 2.2 L VBG pH Sodium 135.4 L BUN Glucose 130 H Urine Protein Urine Ketones TRACE H Urine Blood SMALL H Urine Bilirubin Urine Urobilinogen 11/08/18 11/08/18 11/09/18 14:30 14:30 10:20 RBC MCV 98 H MCH 34.3 H RDW 14.7 H Seg Neutrophils % Lymphocytes % Monocytes % VBG pH 7.43 H Sodium BUN 22 H Glucose Urine Protein Urine Ketones Urine Blood Urine Bilirubin Urine Urobilinogen 11/24/18 05:45 RBC MCV MCH RDW Seg Neutrophils % Lymphocytes % Monocytes % VBG pH Sodium BUN Glucose Urine Protein 30 H Urine Ketones 20 H Urine Blood Urine Bilirubin SMALL H Urine Urobilinogen 2.0 H Doctor's Discharge - Discharge Clinical Impression: Tobacco dependence due to cigarettes, COPD (chronic obstructive pulmonary disease), Dementia Condition: Fair Referrals: LIBERTAD SANDOVAL MD [Primary Care Provider] - Follow up as needed
[2018-11-24 08:59] LABS: ABSOLUTE EOSINOPHILS # (AUTO) 0.1 10^3/uL (0.0-0.6); ABSOLUTE LYMPHOCYTES (AUTO) 1.1 10^3/uL (0.5-4.7); ABSOLUTE MONOCYTES (AUTO) 0.6 10^3/uL (0.1-1.4); ABSOLUTE NEUT (AUTO) 2.4 10^3/uL (1.7-8.2); BASOPHILS % (AUTO) 1.2 % (0-2); EOSINOPHILS % (AUTO) 1.8 % (0-6); HEMATOCRIT 30.8 % (37.9-51.0); HEMOGLOBIN 10.1 g/dL (13.5-17.0); LYMPHOCYTES % (AUTO) 25.6 % (13-45); MEAN CORPUSCULAR HEMOGLOBIN 28.4 pg (27.0-33.4); MEAN CORPUSCULAR HGB CONC 32.6 g/dL (32.0-36.0); MONOCYTES % (AUTO) 13.8 % (3-13); PLATELET COUNT 178 10^3/uL (150-450); RED BLOOD COUNT 3.54 10^6/uL (4.35-5.55); RED CELL DISTRIBUTION WIDTH 19.6 % (11.5-14.0); SEGMENTED NEUTROPHILS % (AUTO) 57.6 % (42-78); TOTAL CELLS COUNTED % (AUTO) 100 %; WHITE BLOOD COUNT 4.2 10^3/uL (4.0-10.5)
[2018-11-24 09:00] LABS: ALANINE AMINOTRANSFERASE 32 U/L (21-72); ALKALINE PHOSPHATASE 186 U/L (38-126); ASPARTATE AMINO TRANSFERASE 53 U/L (17-59); BILIRUBIN,DIRECT 0.4 mg/dL (0.0-0.4); BLOOD UREA NITROGEN 10 mg/dL (7-20); CALCIUM 8.5 mg/dL (8.4-10.2); CARBON DIOXIDE 29 mmol/L (22-30); CHLORIDE 108 mmol/L (98-107); GLUCOSE 101 mg/dL (75-110); POTASSIUM 3.9 mmol/L (3.6-5.0); TOTAL PROTEIN 6.8 g/dL (6.3-8.2)
[2018-11-24 09:01] LABS: MEAN CORPUSCULAR VOLUME 87 fl (80-97)
[2018-11-24 09:06] LABS: SODIUM 141.4 mmol/L (137-145)
[2018-11-24 09:12] LABS: ANION GAP 4 (5-19)
[2018-11-24] MEDS: BUSPIRONE HCL 10 MG TABLET PO SCH ×2 (09:33→22:21)
[2018-11-24] MEDS: DIVALPROEX SODIUM 500 MG TAB.SR.24H PO SCH ×2 (09:34→17:29)
[2018-11-24] MEDS: NICOTINE 21 MG/24 HR PATCH.TD24 TD SCH (09:35)
[2018-11-24] MEDS: RISPERIDONE 0.25 MG TABLET PO SCH ×2 (09:39→17:29)
[2018-11-24] MEDS ORDERED: ONDANSETRON 4 MG TAB.RAPDIS PO ONE (18:20)
[2018-11-25] MEDS: IPRATROPIUM BROMIDE HFA 17 MCG/PUFF 200 PUFF/12.9 GM MDI IH SCH ×3 (04:39→18:05)
[2018-11-25] MEDS: BUSPIRONE HCL 10 MG TABLET PO SCH (08:00)
[2018-11-25] MEDS: DIVALPROEX SODIUM 500 MG TAB.SR.24H PO SCH ×2 (09:01→17:12)
[2018-11-25] MEDS: NICOTINE 21 MG/24 HR PATCH.TD24 TD SCH (09:02)
[2018-11-25] MEDS: RISPERIDONE 0.25 MG TABLET PO SCH ×2 (09:02→17:12)
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
[2018-11-26] MEDS: IPRATROPIUM BROMIDE HFA 17 MCG/PUFF 200 PUFF/12.9 GM MDI IH SCH ×2 (03:34→10:18)
[2018-11-26] MEDS: BUSPIRONE HCL 10 MG TABLET PO SCH ×2 (07:37)
[2018-11-26] MEDS: DIVALPROEX SODIUM 500 MG TAB.SR.24H PO SCH (09:43)
[2018-11-26] MEDS: NICOTINE 21 MG/24 HR PATCH.TD24 TD SCH (09:43)
[2018-11-26] MEDS: RISPERIDONE 0.25 MG TABLET PO SCH (09:43)
--- NOTE | 2018-11-26 12:35 | ER Document Report ---
Doctor's Note Notes: 11/26/18 12:35 Transport is now available. Vital signs reviewed and appear unremarkable. Stable for transport at this time.
[2018-11-26 12:42] VITALS: BP 100/74
== END 2018-11-26 12:43 | disposition other institution (70) ==
LOC: ER 19:04
DX: G30.0 Alzheimer's disease with early onset (principal); F02.81 Dementia in other diseases classified elsewhere, unspecified severity, with behavioral disturbance; J44.9 Chronic obstructive pulmonary disease, unspecified; F17.210 Nicotine dependence, cigarettes, uncomplicated; Z75.1 Person awaiting admission to adequate facility elsewhere; Z88.8 Allergy status to other drugs, medicaments and biological substances; Z88.6 Allergy status to analgesic agent; Z85.118 Personal history of other malignant neoplasm of bronchus and lung
CPT/HCPCS: 93005; 99291; 96372; 96360; 96361; 36415; 82553; 85025; 80048; 80053; 81001; 84484; 82803; 71045; 70470; 93010; A9270 ×58; J1200; J1630 ×2; J1885; J2060 ×2; J3490 ×2; J7030; S0119

== ENCOUNTER 2019-01-29 21:02 | Emergency (ER) | payer MEDICARE, MEDICAID ==
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
--- NOTE | 2019-01-29 22:49 | RADIOLOGY REPORT (SQ) ---
CT HEAD WITHOUT IV CONTRAST EXAM DATE: 01/29/2019 22:11 HISTORY: Altered mental status. COMPARISON: 11/07/2018 TECHNIQUE: CT scan of the brain without IV contrast. This exam was performed according to our departmental dose-optimization program, which includes automated exposure control, adjustment of the mA and/or kV according to patient size and/or use of iterative reconstruction technique. FINDINGS: Diffuse involutional changes are present. No evidence of acute infarction, intracranial hemorrhage, extra-axial fluid collection, or midline shift. Partial opacification of the left maxillary sinus, chronic. No depressed skull fracture. IMPRESSION: No acute intracranial findings.
[2019-01-29] MEDS ORDERED: IPRATROPIUM/ALBUTEROL 0.5-2.5 MG/3 ML AMPUL NEB ONE (23:04)
--- NOTE | 2019-01-29 23:34 | RADIOLOGY REPORT (SQ) ---
EXAM DESCRIPTION: XR CHEST 1 VIEW COMPLETED DATE/TME: 01/29/2019 23:03 CLINICAL HISTORY: 69 years Male dyspnea COMPARISON: 11/05/2018 FINDINGS: The cardiomediastinal silhouette appears unremarkable. No consolidating infiltrates or pleural effusions. No pneumothorax. Spiculated area in the left apex which appears slightly more prominent than on the previous examination. This may be related to scarring but the possibility of underlying neoplasm is not excluded. Emphysematous changes are noted particularly in the right upper lobe. IMPRESSION: Emphysematous change Spiculated area in the left apex which appears slightly more prominent than on the previous examination. This may be related to scarring but the possibility of underlying neoplasm is not excluded.
[2019-01-29 23:41] LABS: ABSOLUTE BASOPHILS # (AUTO) 0.1 10^3/uL (0.0-0.2); ABSOLUTE LYMPHOCYTES (AUTO) 1.8 10^3/uL (0.5-4.7); ABSOLUTE MONOCYTES (AUTO) 0.4 10^3/uL (0.1-1.4); ABSOLUTE NEUT (AUTO) 4.6 10^3/uL (1.7-8.2); BASOPHILS % (AUTO) 0.9 % (0-2); EOSINOPHILS % (AUTO) 0.4 % (0-6); HEMATOCRIT 36.3 % (37.9-51.0); HEMOGLOBIN 12.3 g/dL (13.5-17.0); LYMPHOCYTES % (AUTO) 26.3 % (13-45); MEAN CORPUSCULAR HEMOGLOBIN 33.3 pg (27.0-33.4); MEAN CORPUSCULAR HGB CONC 33.9 g/dL (32.0-36.0); MEAN CORPUSCULAR VOLUME 98 fl (80-97); MONOCYTES % (AUTO) 6.3 % (3-13); PLATELET COUNT 275 10^3/uL (150-450); RED CELL DISTRIBUTION WIDTH 14.8 % (11.5-14.0); SEGMENTED NEUTROPHILS % (AUTO) 66.1 % (42-78); TOTAL CELLS COUNTED % (AUTO) 100 %
[2019-01-29 23:59] LABS: ACETAMINOPHEN < 10 ug/mL (10-30); ALANINE AMINOTRANSFERASE 20 U/L (21-72); ALBUMIN 3.3 g/dL (3.5-5.0); ALCOHOL < 10 mg/dL (NONE DETECTED); ALKALINE PHOSPHATASE 54 U/L (38-126); ANION GAP 5 (5-19); ASPARTATE AMINO TRANSFERASE 10 U/L (17-59); BILIRUBIN,DIRECT 0.3 mg/dL (0.0-0.4); BILIRUBIN,TOTAL 0.5 mg/dL (0.2-1.3); BLOOD UREA NITROGEN 12 mg/dL (7-20); CALCIUM 9.3 mg/dL (8.4-10.2); CARBON DIOXIDE 28 mmol/L (22-30); CHLORIDE 105 mmol/L (98-107); CREATINE KINASE 26 U/L (55-170); GLUCOSE 82 mg/dL (75-110); POTASSIUM 3.7 mmol/L (3.6-5.0); SALICYLATE < 1.0 mg/dL (2.0-20.0); SODIUM 138.1 mmol/L (137-145); TOTAL PROTEIN 5.7 g/dL (6.3-8.2)
[2019-01-30] MEDS ORDERED: QUETIAPINE FUMARATE 25 MG TABLET PO ONE (00:21)
[2019-01-30] MEDS ORDERED: IPRATROPIUM/ALBUTEROL 0.5-2.5 MG/3 ML AMPUL NEB ONE (06:54)
--- NOTE | 2019-01-30 07:37 | EKG REPORT ---
SEVERITY:- BORDERLINE ECG - SINUS RHYTHM BORDERLINE LEFT AXIS DEVIATION BORDERLINE T ABNORMALITIES, ANT-LAT LEADS : Confirmed by: Nick Olson MD 30-Jan-2019 07:36:38
[2019-01-30] MEDS ORDERED: LORAZEPAM 0.5 MG TABLET PO ONE (12:42)
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
[2019-01-30] MEDS ORDERED: DOCUSATE SODIUM 100 MG CAPSULE PO PRN (17:56)
[2019-01-30] MEDS: IPRATROPIUM/ALBUTEROL 0.5-2.5 MG/3 ML AMPUL NEB SCH (21:29)
[2019-01-30] MEDS: TRAZODONE HCL 50 MG TABLET PO PRN (22:39)
[2019-01-30] MEDS: BUSPIRONE HCL 10 MG TABLET PO SCH (22:39)
[2019-01-30] MEDS: SENNOSIDES/DOCUSATE 8.6-50 MG 1 EACH TABLET PO SCH (22:40)
[2019-01-30] MEDS: MIRTAZAPINE 15 MG TABLET PO SCH (22:40)
[2019-01-31] MEDS: IPRATROPIUM/ALBUTEROL 0.5-2.5 MG/3 ML AMPUL NEB SCH ×2 (07:48→19:43)
[2019-01-31] MEDS: LEVOTHYROXINE SODIUM 0.15 MG TABLET PO SCH (08:07)
[2019-01-31] MEDS: MONTELUKAST SODIUM 10 MG TABLET PO SCH (10:46)
[2019-01-31] MEDS: BUSPIRONE HCL 10 MG TABLET PO SCH ×2 (10:46→22:45)
[2019-01-31] MEDS: LACTULOSE SYRUP 20 GM/30 ML UDCUP PO SCH (10:47)
[2019-01-31] MEDS: PREDNISONE 10 MG TABLET PO SCH (10:47)
[2019-01-31] MEDS: FLUTICASONE NASAL SPRAY 50 MCG/SPRY 120 SPRAY/16 GM NASL SCH (11:36)
--- NOTE | 2019-01-31 18:26 | ER Document Report ---
Doctor's Note Notes: 01/31/19 18:26 69-year-old male. Social hold. No complaints. In no acute distress. We will continue to follow.
[2019-01-31] MEDS: MIRTAZAPINE 15 MG TABLET PO SCH (22:46)
[2019-01-31] MEDS: SENNOSIDES/DOCUSATE 8.6-50 MG 1 EACH TABLET PO SCH (22:46)
[2019-02-01 01:47] LABS: APPEARANCE,URINE SLIGHTLY-CLOUDY; BILIRUBIN,URINE NEGATIVE (NEGATIVE); COLOR,URINE YELLOW; GLUCOSE, URINE NEGATIVE (NEGATIVE); KETONES,URINE 20 mg/dL (NEGATIVE); LEUKOCYTE ESTERASE,URINE NEGATIVE (NEGATIVE); NITRITE,URINE NEGATIVE (NEGATIVE); PROTEIN,URINE NEGATIVE (NEGATIVE); URINE SPECIFIC GRAVITY 1.023; UROBILINOGEN,URINE NEGATIVE mg/dL (<2.0)
[2019-02-01 01:59] LABS: URINE AMPHETAMINES SCREEN NEGATIVE; URINE BARBITURATES SCREEN NEGATIVE; URINE BENZODIAZEPINES SCREEN NEGATIVE; URINE COCAINE SCREEN NEGATIVE; URINE MARIJUANA (THC) SCREEN NEGATIVE; URINE METHADONE SCREEN NEGATIVE; URINE PHENCYCLIDINE SCREEN NEGATIVE
[2019-02-01] MEDS: ALBUTEROL SULFATE HFA (90 MCG/PUFF) 200 PUFF/8.5 GM MDI IH PRN ×3 (05:00→13:31)
[2019-02-01] MEDS ORDERED: LEVOTHYROXINE SODIUM 0.15 MG TABLET ONE (05:23)
[2019-02-01] MEDS: LEVOTHYROXINE SODIUM 0.15 MG TABLET PO SCH (06:50)
[2019-02-01] MEDS: IPRATROPIUM/ALBUTEROL 0.5-2.5 MG/3 ML AMPUL NEB SCH ×2 (07:50→19:58)
--- NOTE | 2019-02-01 09:23 | ER Document Report ---
Doctor's Note Notes: 02/01/19 09:23 Patient seen and evaluated. He has lying comfortably in the cot with no current complaints. He does have a flat affect but is not being combative. Patient currently in cooperative. He is awaiting further evaluation by social work for placement because of his increasing dementia and sundowning.
[2019-02-01] MEDS: LACTULOSE SYRUP 20 GM/30 ML UDCUP PO SCH (09:48)
[2019-02-01] MEDS: PREDNISONE 10 MG TABLET PO SCH (09:48)
[2019-02-01] MEDS: BUSPIRONE HCL 10 MG TABLET PO SCH ×2 (09:48→21:12)
[2019-02-01] MEDS: MONTELUKAST SODIUM 10 MG TABLET PO SCH (09:48)
[2019-02-01] MEDS: FLUTICASONE NASAL SPRAY 50 MCG/SPRY 120 SPRAY/16 GM NASL SCH (09:52)
[2019-02-01] MEDS: LORAZEPAM 0.5 MG TABLET PO PRN ×2 (16:10→21:12)
[2019-02-01] MEDS: MIRTAZAPINE 15 MG TABLET PO SCH (21:12)
[2019-02-01] MEDS: SENNOSIDES/DOCUSATE 8.6-50 MG 1 EACH TABLET PO SCH (21:12)
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
--- NOTE | 2019-02-01 22:37 | ER Document Report ---
Doctor's Note Notes: 02/01/19 22:35 Patient is a pleasant 69-year-old male is being held in the ED due to dementia and acute out of his mcc due to bit of behavioral disturbances. He has required some restraints as patient will try to leave and obviously has baseline dementia and confusion and this hard to redirect. I did do [id number] evaluation the patient. He is currently back in bed with a lap belt. He had a lap belt on and is able to wiggle himself out of the lap belt. He is in no distress. He is in no pain. I will add mitten restraints to try to keep him from being able to work his way out of the lapbelt as we do not want him to get out of bed and fall or leave as he would be a danger to himself if he were to able to leave the hospital on go out on his own. Dictation of this chart was performed using voice recognition software; therefore, there may be some unintended grammatical errors.
[2019-02-02] MEDS: TRAZODONE HCL 50 MG TABLET PO PRN (02:05)
[2019-02-02] MEDS: ALBUTEROL SULFATE HFA (90 MCG/PUFF) 200 PUFF/8.5 GM MDI IH PRN ×2 (02:19→06:32)
[2019-02-02] MEDS: LEVOTHYROXINE SODIUM 0.15 MG TABLET PO SCH (06:24)
[2019-02-02] MEDS: FLUTICASONE NASAL SPRAY 50 MCG/SPRY 120 SPRAY/16 GM NASL SCH (09:15)
[2019-02-02] MEDS: IPRATROPIUM/ALBUTEROL 0.5-2.5 MG/3 ML AMPUL NEB SCH (09:15)
[2019-02-02] MEDS: LACTULOSE SYRUP 20 GM/30 ML UDCUP PO SCH (09:15)
[2019-02-02] MEDS: BUSPIRONE HCL 10 MG TABLET PO SCH ×2 (09:16→21:35)
[2019-02-02] MEDS: PREDNISONE 10 MG TABLET PO SCH (09:16)
[2019-02-02] MEDS: MONTELUKAST SODIUM 10 MG TABLET PO SCH (09:16)
--- NOTE | 2019-02-02 09:39 | ER Document Report ---
Doctor's Note Notes: 02/02/19 09:38 Patient seen and evaluated. He was using an albuterol nebulized treatment this morning for his COPD. Patient has some mild wheezing but is in no acute respiratory distress. His is at bedside. Patient is awaiting social services counselor consultation and likely placement for his increasing agitation and combative behavior at home towards family. He is medically cleared at this point.
[2019-02-02] MEDS: LORAZEPAM 0.5 MG TABLET PO PRN (10:54)
[2019-02-02] MEDS: SENNOSIDES/DOCUSATE 8.6-50 MG 1 EACH TABLET PO SCH (21:35)
[2019-02-02] MEDS: MIRTAZAPINE 15 MG TABLET PO SCH (21:36)
[2019-02-03] MEDS: LEVOTHYROXINE SODIUM 0.15 MG TABLET PO SCH (07:51)
[2019-02-03] MEDS: IPRATROPIUM/ALBUTEROL 0.5-2.5 MG/3 ML AMPUL NEB SCH ×2 (07:52→08:14)
[2019-02-03] MEDS: LACTULOSE SYRUP 20 GM/30 ML UDCUP PO SCH (09:32)
[2019-02-03] MEDS: MONTELUKAST SODIUM 10 MG TABLET PO SCH (09:32)
[2019-02-03] MEDS: PREDNISONE 10 MG TABLET PO SCH (09:32)
[2019-02-03] MEDS: BUSPIRONE HCL 10 MG TABLET PO SCH ×2 (09:32→21:39)
[2019-02-03] MEDS: FLUTICASONE NASAL SPRAY 50 MCG/SPRY 120 SPRAY/16 GM NASL SCH (09:33)
[2019-02-03] MEDS: ALBUTEROL SULFATE HFA (90 MCG/PUFF) 200 PUFF/8.5 GM MDI IH PRN ×2 (09:33→16:34)
--- NOTE | 2019-02-03 10:10 | ER Document Report ---
Doctor's Note Notes: 02/03/19 10:08 Rounds: Patient interviewed and chart reviewed. Patient being evaluated for altered mental status. His work-up, including a CT scan of the brain have all been essentially normal. Lab studies were all normal. Vital signs are all normal. Patient apparently suffers from dementia. He does not have any acute psychiatric or medical condition. Patient appears to be medically stable for transfer or discharge. Kwadwo Aguilar MD
[2019-02-03] MEDS: MIRTAZAPINE 15 MG TABLET PO SCH (21:39)
[2019-02-03] MEDS: SENNOSIDES/DOCUSATE 8.6-50 MG 1 EACH TABLET PO SCH (21:39)
[2019-02-03] MEDS: TRAZODONE HCL 50 MG TABLET PO PRN (21:39)
[2019-02-04] MEDS: LEVOTHYROXINE SODIUM 0.15 MG TABLET PO SCH (06:33)
[2019-02-04] MEDS: IPRATROPIUM/ALBUTEROL 0.5-2.5 MG/3 ML AMPUL NEB SCH ×3 (09:28→21:21)
--- NOTE | 2019-02-04 10:32 | ER Document Report ---
Doctor's Note Notes: 02/04/19 10:31 Rounds: Chart reviewed and patient sleeping. All vital signs normal except for blood pressure 98/58. Patient is awaiting placement. No labs to review. Has been here for 5 days. Patient appears to be medically stable for transfer or discharge. Kwadwo Aguilar MD
[2019-02-04] MEDS: BUSPIRONE HCL 10 MG TABLET PO SCH ×2 (10:38→21:25)
[2019-02-04] MEDS: MONTELUKAST SODIUM 10 MG TABLET PO SCH (10:39)
[2019-02-04] MEDS: PREDNISONE 10 MG TABLET PO SCH (10:40)
[2019-02-04] MEDS: FLUTICASONE NASAL SPRAY 50 MCG/SPRY 120 SPRAY/16 GM NASL SCH (10:41)
[2019-02-04] MEDS: LACTULOSE SYRUP 20 GM/30 ML UDCUP PO SCH (10:41)
[2019-02-04] MEDS: ALBUTEROL SULFATE HFA (90 MCG/PUFF) 200 PUFF/8.5 GM MDI IH PRN (15:08)
[2019-02-04] MEDS: MIRTAZAPINE 15 MG TABLET PO SCH (21:25)
[2019-02-04] MEDS: SENNOSIDES/DOCUSATE 8.6-50 MG 1 EACH TABLET PO SCH (21:25)
[2019-02-05] MEDS ORDERED: LEVOTHYROXINE SODIUM 0.15 MG TABLET ONE (06:55)
[2019-02-05] MEDS: LEVOTHYROXINE SODIUM 0.15 MG TABLET PO SCH (07:04)
[2019-02-05] MEDS: IPRATROPIUM/ALBUTEROL 0.5-2.5 MG/3 ML AMPUL NEB SCH ×2 (08:20→21:28)
--- NOTE | 2019-02-05 09:45 | ER Document Report ---
Doctor's Note Notes: 02/05/19 09:44 Social Rounds: Patient has now been here for a week. He is awaiting placement. Without complaints. Vital signs of all been normal although there is no reported vital signs on the chart for this morning so I am having them checked. Patient appears to be medically stable for transfer or discharge. Kwadwo Aguilar MD
[2019-02-05] MEDS: LACTULOSE SYRUP 20 GM/30 ML UDCUP PO SCH (10:06)
[2019-02-05] MEDS: BUSPIRONE HCL 10 MG TABLET PO SCH ×2 (10:06→21:28)
[2019-02-05] MEDS: PREDNISONE 10 MG TABLET PO SCH (10:06)
[2019-02-05] MEDS: ALBUTEROL SULFATE HFA (90 MCG/PUFF) 200 PUFF/8.5 GM MDI IH PRN (10:06)
[2019-02-05] MEDS: MONTELUKAST SODIUM 10 MG TABLET PO SCH (10:06)
[2019-02-05] MEDS: FLUTICASONE NASAL SPRAY 50 MCG/SPRY 120 SPRAY/16 GM NASL SCH (10:11)
[2019-02-05] MEDS: IPRATROPIUM BROMIDE HFA 17 MCG/PUFF 200 PUFF/12.9 GM MDI IH SCH ×3 (10:51→10:53)
[2019-02-05] MEDS: SENNOSIDES/DOCUSATE 8.6-50 MG 1 EACH TABLET PO SCH (21:29)
[2019-02-05] MEDS: MIRTAZAPINE 15 MG TABLET PO SCH (21:29)
[2019-02-06] MEDS: LEVOTHYROXINE SODIUM 0.15 MG TABLET PO SCH (06:23)
[2019-02-06] MEDS: LACTULOSE SYRUP 20 GM/30 ML UDCUP PO SCH (09:44)
[2019-02-06] MEDS: BUSPIRONE HCL 10 MG TABLET PO SCH ×2 (09:44→23:39)
[2019-02-06] MEDS: IPRATROPIUM/ALBUTEROL 0.5-2.5 MG/3 ML AMPUL NEB SCH ×2 (09:44→23:39)
[2019-02-06] MEDS: PREDNISONE 10 MG TABLET PO SCH (09:44)
[2019-02-06] MEDS: MONTELUKAST SODIUM 10 MG TABLET PO SCH (09:44)
[2019-02-06] MEDS: FLUTICASONE NASAL SPRAY 50 MCG/SPRY 120 SPRAY/16 GM NASL SCH (09:54)
[2019-02-06] MEDS: TRAZODONE HCL 50 MG TABLET PO PRN (23:38)
[2019-02-06] MEDS: ALBUTEROL SULFATE HFA (90 MCG/PUFF) 200 PUFF/8.5 GM MDI IH PRN (23:39)
[2019-02-06] MEDS: SENNOSIDES/DOCUSATE 8.6-50 MG 1 EACH TABLET PO SCH (23:40)
[2019-02-06] MEDS: MIRTAZAPINE 15 MG TABLET PO SCH (23:42)
[2019-02-07] MEDS: LACTULOSE SYRUP 20 GM/30 ML UDCUP PO SCH (09:05)
[2019-02-07] MEDS: FLUTICASONE NASAL SPRAY 50 MCG/SPRY 120 SPRAY/16 GM NASL SCH (09:05)
[2019-02-07] MEDS: MONTELUKAST SODIUM 10 MG TABLET PO SCH (09:06)
[2019-02-07] MEDS: BUSPIRONE HCL 10 MG TABLET PO SCH ×2 (09:06→23:28)
[2019-02-07] MEDS: PREDNISONE 10 MG TABLET PO SCH (09:06)
--- NOTE | 2019-02-07 09:24 | ER Document Report ---
Doctor's Note Notes: 02/07/19 09:23 69-year-old male here for social hold. No events overnight. Vital signs are stable.
[2019-02-07] MEDS: MIRTAZAPINE 15 MG TABLET PO SCH (23:30)
[2019-02-07] MEDS: IPRATROPIUM/ALBUTEROL 0.5-2.5 MG/3 ML AMPUL NEB SCH (23:30)
[2019-02-07] MEDS: SENNOSIDES/DOCUSATE 8.6-50 MG 1 EACH TABLET PO SCH (23:31)
[2019-02-07] MEDS: ALBUTEROL SULFATE HFA (90 MCG/PUFF) 200 PUFF/8.5 GM MDI IH PRN (23:31)
[2019-02-08] MEDS ORDERED: LEVOTHYROXINE SODIUM 0.15 MG TABLET ONE (06:07)
[2019-02-08] MEDS: LACTULOSE SYRUP 20 GM/30 ML UDCUP PO SCH (09:58)
[2019-02-08] MEDS: FLUTICASONE NASAL SPRAY 50 MCG/SPRY 120 SPRAY/16 GM NASL SCH (09:58)
[2019-02-08] MEDS: MONTELUKAST SODIUM 10 MG TABLET PO SCH (09:59)
[2019-02-08] MEDS: BUSPIRONE HCL 10 MG TABLET PO SCH (09:59)
[2019-02-08] MEDS: PREDNISONE 10 MG TABLET PO SCH (09:59)
[2019-02-08] MEDS: IPRATROPIUM/ALBUTEROL 0.5-2.5 MG/3 ML AMPUL NEB SCH ×2 (09:59→20:35)
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
[2019-02-09] MEDS: TRAZODONE HCL 50 MG TABLET PO PRN (01:26)
[2019-02-09] MEDS: MIRTAZAPINE 15 MG TABLET PO SCH ×2 (01:27→22:29)
[2019-02-09] MEDS: BUSPIRONE HCL 10 MG TABLET PO SCH ×3 (01:27→22:28)
[2019-02-09] MEDS: SENNOSIDES/DOCUSATE 8.6-50 MG 1 EACH TABLET PO SCH ×2 (01:28→22:28)
[2019-02-09] MEDS: ALBUTEROL SULFATE HFA (90 MCG/PUFF) 200 PUFF/8.5 GM MDI IH PRN (01:28)
[2019-02-09] MEDS ORDERED: LEVOTHYROXINE SODIUM 0.15 MG TABLET ONE (06:05)
[2019-02-09] MEDS: LEVOTHYROXINE SODIUM 0.15 MG TABLET PO SCH (06:11)
[2019-02-09] MEDS: IPRATROPIUM/ALBUTEROL 0.5-2.5 MG/3 ML AMPUL NEB SCH ×3 (08:38→21:28)
[2019-02-09] MEDS: PREDNISONE 10 MG TABLET PO SCH (09:05)
[2019-02-09] MEDS: FLUTICASONE NASAL SPRAY 50 MCG/SPRY 120 SPRAY/16 GM NASL SCH (09:05)
[2019-02-09] MEDS: MONTELUKAST SODIUM 10 MG TABLET PO SCH (09:06)
[2019-02-09] MEDS: LACTULOSE SYRUP 20 GM/30 ML UDCUP PO SCH (09:06)
--- NOTE | 2019-02-09 09:36 | ER Document Report ---
Doctor's Note Notes: 02/09/19 09:34 Patient seen and examined. His was present in the room. He was receiving a breathing treatment at that time. The patient denies any present complaints. He has no pain. Has had no issues with nursing. Chart reviewed. Physical exam reveals a frail-appearing 69-year-old male in no acute distress. Is neuropsych and atraumatic. Heart is regular rate and rhythm, lungs are actually clear to auscultation bilaterally. Abdomen is soft and nontender. Patient is awake and alert, cooperative examiner. Assessment and plan: Patient with significant dementia, unable to receive care at home. Continue to look for placement through case management.
[2019-02-10] MEDS: LEVOTHYROXINE SODIUM 0.15 MG TABLET PO SCH (06:36)
[2019-02-10] MEDS: IPRATROPIUM/ALBUTEROL 0.5-2.5 MG/3 ML AMPUL NEB SCH ×2 (08:20→19:58)
[2019-02-10] MEDS: MONTELUKAST SODIUM 10 MG TABLET PO SCH (09:10)
[2019-02-10] MEDS: BUSPIRONE HCL 10 MG TABLET PO SCH ×2 (09:10→21:40)
[2019-02-10] MEDS: PREDNISONE 10 MG TABLET PO SCH (09:10)
[2019-02-10] MEDS: ALBUTEROL SULFATE HFA (90 MCG/PUFF) 200 PUFF/8.5 GM MDI IH PRN ×2 (09:11→17:48)
[2019-02-10] MEDS: FLUTICASONE NASAL SPRAY 50 MCG/SPRY 120 SPRAY/16 GM NASL SCH (09:11)
[2019-02-10] MEDS: LACTULOSE SYRUP 20 GM/30 ML UDCUP PO SCH (09:11)
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
[2019-02-10] MEDS: MIRTAZAPINE 15 MG TABLET PO SCH (21:40)
[2019-02-10] MEDS: SENNOSIDES/DOCUSATE 8.6-50 MG 1 EACH TABLET PO SCH (21:40)
[2019-02-11] MEDS ORDERED: LEVOTHYROXINE SODIUM 0.15 MG TABLET ONE (04:35)
[2019-02-11] MEDS: LEVOTHYROXINE SODIUM 0.15 MG TABLET PO SCH (05:30)
[2019-02-11] MEDS: ALBUTEROL SULFATE HFA (90 MCG/PUFF) 200 PUFF/8.5 GM MDI IH PRN ×3 (06:35→21:32)
[2019-02-11] MEDS: IPRATROPIUM/ALBUTEROL 0.5-2.5 MG/3 ML AMPUL NEB SCH ×2 (08:22→21:32)
[2019-02-11] MEDS: LACTULOSE SYRUP 20 GM/30 ML UDCUP PO SCH (09:25)
[2019-02-11] MEDS: MONTELUKAST SODIUM 10 MG TABLET PO SCH (09:26)
[2019-02-11] MEDS: BUSPIRONE HCL 10 MG TABLET PO SCH ×2 (09:26→21:32)
[2019-02-11] MEDS: PREDNISONE 10 MG TABLET PO SCH (09:26)
[2019-02-11] MEDS: FLUTICASONE NASAL SPRAY 50 MCG/SPRY 120 SPRAY/16 GM NASL SCH (09:27)
--- NOTE | 2019-02-11 14:21 | ER Document Report ---
Doctor's Note Notes: 02/11/19 14:21 Rounds: Chart reviewed and patient interviewed. This patient is a social hold. He has no complaints. Vital signs and his entire evaluation is currently essentially normal for him. Patient appears to be medically stable for transfer or discharge. Kwadwo Aguilar MD
[2019-02-11] MEDS: TRAZODONE HCL 50 MG TABLET PO PRN (21:32)
[2019-02-11] MEDS: SENNOSIDES/DOCUSATE 8.6-50 MG 1 EACH TABLET PO SCH (21:33)
[2019-02-11] MEDS: MIRTAZAPINE 15 MG TABLET PO SCH (21:33)
[2019-02-12] MEDS: LEVOTHYROXINE SODIUM 0.15 MG TABLET PO SCH (06:14)
[2019-02-12] MEDS: BUSPIRONE HCL 10 MG TABLET PO SCH ×2 (09:01→22:49)
[2019-02-12] MEDS: PREDNISONE 10 MG TABLET PO SCH (09:01)
[2019-02-12] MEDS: MONTELUKAST SODIUM 10 MG TABLET PO SCH (09:01)
[2019-02-12] MEDS: IPRATROPIUM/ALBUTEROL 0.5-2.5 MG/3 ML AMPUL NEB SCH ×2 (09:01→20:30)
[2019-02-12] MEDS: LACTULOSE SYRUP 20 GM/30 ML UDCUP PO SCH (09:01)
[2019-02-12] MEDS: FLUTICASONE NASAL SPRAY 50 MCG/SPRY 120 SPRAY/16 GM NASL SCH (09:02)
--- NOTE | 2019-02-12 09:49 | ER Document Report ---
Doctor's Note Notes: 02/12/19 09:47 Social rounds. Patient has been in this emergency room for over 2 weeks. says that there is a spot for him at a facility where she supposed to go and sign for him tomorrow and then he can go there. I think of her that story about 5 or 10 times on this patient. Vital signs are all essentially normal. Lab studies of all been essentially normal. He has no complaints. Patient is medically stable for transfer or discharge. Kwadwo Aguilar MD
[2019-02-12] MEDS: ALBUTEROL SULFATE HFA (90 MCG/PUFF) 200 PUFF/8.5 GM MDI IH PRN ×2 (13:13→22:48)
[2019-02-12] MEDS: TRAZODONE HCL 50 MG TABLET PO PRN (22:48)
[2019-02-12] MEDS: MIRTAZAPINE 15 MG TABLET PO SCH (22:49)
[2019-02-12] MEDS: SENNOSIDES/DOCUSATE 8.6-50 MG 1 EACH TABLET PO SCH (22:49)
[2019-02-13] MEDS: LEVOTHYROXINE SODIUM 0.15 MG TABLET PO SCH (06:45)
[2019-02-13] MEDS: IPRATROPIUM/ALBUTEROL 0.5-2.5 MG/3 ML AMPUL NEB SCH (08:45)
[2019-02-13] MEDS: FLUTICASONE NASAL SPRAY 50 MCG/SPRY 120 SPRAY/16 GM NASL SCH (09:20)
[2019-02-13] MEDS: PREDNISONE 10 MG TABLET PO SCH (09:21)
[2019-02-13] MEDS: MONTELUKAST SODIUM 10 MG TABLET PO SCH (09:21)
[2019-02-13] MEDS: BUSPIRONE HCL 10 MG TABLET PO SCH (09:21)
[2019-02-13] MEDS: LACTULOSE SYRUP 20 GM/30 ML UDCUP PO SCH (09:21)
--- NOTE | 2019-02-13 09:50 | ER Document Report ---
Doctor's Note Notes: 02/13/19 09:45 I have evaluated this pt. today and he has no c/o. He feels all of his needs are being met. His physical exam is normal. He will be assessed by psychiatry later today.
[2019-02-13] MEDS: ALBUTEROL SULFATE HFA (90 MCG/PUFF) 200 PUFF/8.5 GM MDI IH PRN (12:15)
[2019-02-13 15:01] VITALS: BP 98/69
== END 2019-02-13 16:28 ==
LOC: ER 21:02
DX: F03.91 Unspecified dementia, unspecified severity, with behavioral disturbance (principal); R41.82 Altered mental status, unspecified; J44.9 Chronic obstructive pulmonary disease, unspecified; R06.02 Shortness of breath; F17.210 Nicotine dependence, cigarettes, uncomplicated
CPT/HCPCS: 93005; 36415; 80307 ×4; 82550; 85025; 80053; 81001; 71045; 70450; 93010; A9270 ×114; J3490; 94640; 99285; J7512; J7620